=== PATIENT | male | born 1985 | race Native Hawaiian/Other Pacific Islander ===

== ENCOUNTER 2020-12-12 12:35 | Emergency (ER) | payer SELFPAY ==
[2020-12-12] MEDS ORDERED: BUTALB/ACETAMINOPHEN/CAFFEINE TAB PO ONE (12:54)
[2020-12-12] MEDS ORDERED: diphenhydrAMINE 25 MG CAP PO ONE (12:54)
[2020-12-12] MEDS ORDERED: METOCLOPRAMIDE 10 MG TAB PO ONE (12:54)
--- NOTE | 2020-12-12 12:54 | Event Note ---
ED Screening Note ED Screening Note: Patient is a 35-year-old male who presents emergency room with complaints of a frontal and posterior headache that began 2 days ago He states that when the pain gets severe he feels like he wants to pass out He denies any dizziness, vision changes, nausea, vomiting, diarrhea, neck stiffness, fever, numbness, weakness, speech disturbance, gait disturbance Past medical history of HIV, states he is on his medications No medication allergies This initial assessment/diagnostic orders/clinical plan/treatment(s) is/are subject to change based on patients health status, clinical progression and re- assessment by fellow clinical providers in the ED. Further treatment and workup at subsequent clinical providers discretion. Patient/guardian urged not to elope from the ED as their condition may be serious if not clinically assessed and managed. Initial orders include: labs, meds
[2020-12-12 13:36] LABS: Basophils % (Auto) 0.2 % (0.0-1.8); Hematocrit 36.6 % (35.5-45.6); Hemoglobin 12.8 gm/dl (11.8-15.2); Lymphocytes % (Auto) 12.2 % (13.4-35.0); Mean Corpuscular HGB Conc 35 % (32-34); Mean Corpuscular Volume 97 fl (84-94); Monocytes # (Auto) 0.6 K/mm3 (0.0-0.8); Monocytes % (Auto) 6.7 % (0.0-7.3); Platelet Count 254 K/mm3 (140-440); Red Blood Count 3.78 M/mm3 (3.65-5.03); Red Cell Distribution Width 14.2 % (13.2-15.2)
[2020-12-12] MEDS ORDERED: ONDANSETRON 4 MG/2 ML INJ IV ONE (13:59)
[2020-12-12] MEDS ORDERED: MORPHINE 4 MG/1 ML INJ IV ONE (13:59)
[2020-12-12] MEDS ORDERED: KETOROLAC 30 MG/1 ML INJ IV ONE (13:59)
[2020-12-12 14:01] LABS: Alanine Aminotransferase 13 units/L (7-56); Albumin 4.3 g/dL (3.9-5); BUN/Creatinine Ratio 16; Blood Urea Nitrogen 13 mg/dL (9-20); Calcium 9.2 mg/dL (8.4-10.2); Hemolysis Index 3
--- NOTE | 2020-12-12 14:22 | Emergency Department Report ---
ED Headache HPI - General Chief Complaint: Headache Stated Complaint: MIGRAINE X 3 DAYS Time Seen by Provider: 12/12/20 12:53 Source: patient Exam Limitations: language barrier (Patient Setswana-speaking. 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 Severe 10/10 stabbing headache radiating to neck. Constant. +photophobia +phonophobia +chills Patient did not attempt home therapy. Headache has been constant. Patient had similar headache when he was diagnosed with "fungal infection on the brain" at [facility] in [facility]. He was hospitalized for 1 month December 2019. He has been compliant with ART Biktarvy. He moved from [place] 3 months ago. He receives medical care through the [facility] clinic. Prescribing provider listed on medication bottle Dr. Anthony Alfaro. Patient has been taking fluconazole daily. However when he transferred care from [place] he was prescribed Bactrim instead. He attributes his headache to the medication change. 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 Patient was also diagnosed with COVID-19 during previous hospitalization in 2019. According to outside hospital records, patient had at least 2 admissions and several ED visits for headache related to cryptococcal meningitis. Claims Manager recommended frequent LP to relieve high pressures if symptomatic. At initial diagnosis of HIV CD4 count 39. According to discharge summary fluconazole therapy 200 mg recommended for 1 year. Discharge medications include azithromycin and Bactrim fluconazole according to OSH discharge summary February 2020 Timing/Duration: other (3 days) Quality: severe Head Injury Location: frontal, temporal Recent Head Trauma: other (Similar headache with fungal meningitis) Associated Symptoms: other (Chills photophobia phonophobia) Allergies/Adverse Reactions: Allergies No Known Allergies Allergy (Unverified 12/07/19 09:53) Home Medications: Ambulatory Orders Amoxicillin [Amoxicillin TAB] 875 mg PO BID #20 tablet 12/07/19 Ibuprofen [Motrin] 800 mg PO Q8HR #30 tablet 12/07/19 Fluconazole [Diflucan TAB] 2 tab PO QDAY 30 Days #60 tablet 12/12/20 Fluconazole [Diflucan TAB] 4 tab PO QDAY #120 tablet 12/12/20 Fluconazole [Diflucan TAB] 200 mg PO QDAY 30 Days #30 tablet 12/12/20 ED Review of Systems ROS: Stated complaint: MIGRAINE X 3 DAYS Other details as noted in HPI Comment: All other systems reviewed and negative Constitutional: chills Neurological: headache ED Past Medical Hx - Past Medical History Previous Medical History?: Yes Additional medical history: HIV/AIDS, fungal meningitis - Surgical History Past Surgical History?: No - Social History Smoking Status: Never Smoker Substance Use Type: None - Medications Home Medications: Home Medications Medication Instructions Recorded Confirmed Last Taken Type Amoxicillin [Amoxicillin TAB] 875 mg PO BID #20 tablet 12/07/19 Unknown Rx Ibuprofen [Motrin] 800 mg PO Q8HR #30 tablet 12/07/19 Unknown Rx Fluconazole [Diflucan TAB] 2 tab PO QDAY 30 Days #60 tablet 12/12/20 Unknown Rx Fluconazole [Diflucan TAB] 4 tab PO QDAY #120 tablet 12/12/20 Unknown Rx Fluconazole [Diflucan TAB] 200 mg PO QDAY 30 Days #30 tablet 12/12/20 Unknown Rx ED Physical Exam - General Limitations: Language Barrier (Setswana-speaking, lang interpreter at bedside) General appearance: alert, other (In severe pain, holding head, under the blanket) - Head Head exam: Present: atraumatic, normocephalic - Eye Eye exam: Present: normal appearance - ENT ENT exam: Present: mucous membranes moist - Neck Neck exam: Present: normal inspection, full ROM - Respiratory Respiratory exam: Present: normal lung sounds bilaterally. Absent: respiratory distress, wheezes, rales, rhonchi - Cardiovascular Cardiovascular Exam: Present: regular rate, normal rhythm, normal heart sounds. Absent: systolic murmur, diastolic murmur, rubs, gallop - GI/Abdominal GI/Abdominal exam: Present: soft, normal bowel sounds. Absent: distended, tenderness, guarding, rebound - Rectal Rectal exam: Present: deferred - Extremities Exam Extremities exam: Present: normal inspection - Neurological Exam Neurological exam: Present: alert, oriented X3, normal gait - Psychiatric Psychiatric exam: Present: normal affect, normal mood - Skin Skin exam: Present: warm, dry, intact, normal color. Absent: rash ED Course Vital Signs 12/12/20 12/12/20 12:49 14:31 Temperature 99.3 F Pulse Rate 79 60 Respiratory 22 16 Rate Blood Pressure 122/82 Blood Pressure 130/79 [Right] O2 Sat by Pulse 100 98 Oximetry - Lumbar Puncture Consent Obtained: verbal consent Time Out Performed: Yes Indication for Procedure: headache Patient Position: left lateral decubitus Skin Prep: Povidone-Iodine 1% Local Anesthetic Used: Lidocaine 1% Amount of anesthesia used (mls): 20 Spinal Needle Gauge: 20G Spinal Needle Length: 3.5in Interspace Used: L3-L4 Opening Pressure (cmH20): 28 Fluid Initially Obtained: clear Complications: none Patient Tolerated Procedure: well ED Medical Decision Making - Lab Data Result diagrams: 12/12/20 13:15 12/12/20 13:15 Laboratory Results - last 24 hr 12/12/20 12/12/20 13:15 13:15 WBC 8.3 RBC 3.78 Hgb 12.8 Hct 36.6 MCV 97 H MCH 34 H MCHC 35 H RDW 14.2 Plt Count 254 Lymph % (Auto) 12.2 L [place] % (Auto) 6.7 Eos % (Auto) 0.0 Baso % (Auto) 0.2 Lymph # (Auto) 1.0 L [place] # (Auto) 0.6 Eos # (Auto) 0.0 Baso # (Auto) 0.0 Seg Neutrophils % 80.9 H Seg Neutrophils # 6.7 Sodium 129 L Potassium 3.8 Chloride 94.7 L Carbon Dioxide 24 Anion Gap 14 BUN 13 Creatinine 0.8 Estimated GFR > 60 BUN/Creatinine Ratio 16 Glucose 126 H Calcium 9.2 Total Bilirubin 0.80 AST 11 ALT 13 Alkaline Phosphatase 63 Total Protein 8.6 H Albumin 4.3 Albumin/Globulin Ratio 1.0 - Medical Decision Making Cryptococcal meningitis: Serum cryptococcal antigen positive. I spoke with infectious disease physician Dr. Pisano. Dr. Pisano recommended lumbar puncture with opening pressure as well as CSF cryptococcal antigen test. She recommended fluconazole 800 mg daily. She anticipates that patient will need amphotericin which should be monitored by an infectious disease specialist. Opening pressure 28 cm of water with lumbar puncture. I consulted with hospitalist Dr. Romero who evaluated patient. Dr. Romero and I both agree that since patient's symptoms were easily controlled prior to spinal tap, outpatient therapy would be most appropriate. I have prescribed 3 months of fluconazole. 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 I have prescribed fluconazole fluconazole 800 mg for the first month. 400 mg fluconazole for the second month. 200 mg of fluconazole daily for the third month. Critical care attestation.: If time is entered above; I have spent that time in minutes in the direct care of this critically ill patient, excluding procedure time. ED Disposition Clinical Impression: Cryptococcal meningitis, Severe headache, AIDS Disposition: DC- TO HOME OR SELFCARE Is pt being admited?: No Does the pt Need Aspirin: No Condition: Stable Instructions: Cryptococcosis Additional Instructions: Deber lilibeth 800 mg diarios de fluconazol nakul el primer mes. El bernice mes deber lilibeth 400 mg de fluconazol al da. La tercera noche deber lilibeth 200 mg de fluconazol al da. Prescriptions: Fluconazole [Diflucan TAB] 4 tab PO QDAY #120 tablet Fluconazole [Diflucan TAB] 2 tab PO QDAY 30 Days #60 tablet Fluconazole [Diflucan TAB] 200 mg PO QDAY 30 Days #30 tablet Referrals: PRIMARY CARE, [Primary Care Provider] - 3-5 Days Print Language: FAROESE
--- NOTE | 2020-12-12 14:28 | Cat Scan Report ---
NONENHANCED CT SCAN OF THE HEAD: INDICATION / CLINICAL INFORMATION: 35 years Male; severe headache hx of fungal meningitis. TECHNIQUE: Routine CT head without contrast. All CT scans at this location are performed using CT dos e reduction for ALARA by means of automated exposure control. COMPARISON: None. FINDINGS: BRAIN / INTRACRANIAL CONTENTS: Normal ventricular system; no extracerebral fluid collection; no focal parenchymal lesion in the brain; no mass effect over the ventricular system Brain parenchyma is normal; basal ganglia are normal CRANIOCERVICAL JUNCTION: No significant abnormality. ORBITS: No significant abnormality of visualized orbits. SINUSES / MASTOIDS: No significant abnormality of the visualized paranasal sinuses or mastoid air dion ls. ADDITIONAL FINDINGS: None. IMPRESSION: No focal parenchymal lesion: No hydrocephalus; no extracerebral fluid collection Signer Name: Ellie Bearden MD Signed: 12/12/2020 2:24 PM Workstation Name: [id number]
[2020-12-12] MEDS ORDERED: LIDOCAINE (1%) 10 MG/1 ML VIAL 20 ML MDV INFILTRATI ONE (14:38)
[2020-12-12 18:18] VITALS: BP 122/72
[2020-12-12 18:55] LABS: Appearance,CSF Clear
[2020-12-12 19:06] LABS: Red Blood Cell,CSF 4 /mm3 (0-0); White Blood Cell,CSF 23 /mm3 (1-10)
[2020-12-12 19:32] LABS: Total Cells Counted 100 /mm3
[2020-12-12 19:33] LABS: Basophils CSF 0 %
== END 2020-12-12 18:18 | disposition home or self-care (01) ==
LOC: EDBD → ED 12:35
DX: B45.1 Cerebral cryptococcosis (principal); B20 Human immunodeficiency virus [HIV] disease; R51.9 Headache, unspecified; Z79.899 Other long term (current) drug therapy
CPT/HCPCS: 36415; 70450; 80053; 85025; 86403; 89051; 96374; 96375; 99284; J1885; J2270; J2405

== ENCOUNTER 2020-12-28 08:29 | Inpatient (IN) | payer OTHER ==
[2020-12-28] MEDS ORDERED: LORazepam 2 MG/ML VIAL IV ONE (08:52)
[2020-12-28] MEDS ORDERED: levETIRAcetam 1000 MG/NS 0.75% 1,000 MG/100 ML BAG IV ONE (08:52)
--- NOTE | 2020-12-28 09:13 | Emergency Department Report ---
Blank Doc - Documentation Documentation: [facility] Consult Note # Demographics Consult Type: General Neurology Patient Location: Emergency Room First Name: Everette Last Name: Maximino Date of : 1985 Age: 35 Gender: Male Time of Initial Page (Eastern Time): 12/28/2020, 08:44 Time of Return Call (Eastern Time): 12/28/2020, 08:44 # HPI History: 35yo M has h/o HIV, possibly with MEDICAL EXAMINER infection related to this. he presents with left sided weakness and is actively seizure. has ordered ativan and keppra, not given yet however # Scores Time of exam and NIHSS (Eastern Time): 12/28/2020, 09:08 NIHSS Total: 0 # Exam Mental Status: awake Motor: left sided wekaness Additional Neurologic Exam: head moving in a no-no direction. no clear seizures currently # PMH-FH-SH Past Medical History: HIV # Data Head CT: preliminarily reviewed by me, please refer to radiology read for official reading, hypodensity in the right parietal lobe - looks consistent with edema. limited eval # Assessment Impression: focal seizure # Plan Thrombolytic/Intervention: NOT IV Thrombolytic or IA Intervention Thrombolytic/Intraarterial Exclusion: IV thrombolytic and IA intervention considered but not recommended as this patient's symptoms are not clinically consistent with an assumed diagnosis of stroke Imaging: (urgency: routine admission): MRI Brain with AND without contrast Diagnostic Test: EEG Medication: fosphenytoin 20 PE/kg IV load Other: seizure precautions, I have discussed my recommendations with the referring provider Additional Recommendations: depending on history and known diagnosis will need LP Disposition: admit # Logistics Telemedicine: Interactive 2 way audio and visual telecommunication technology was utilized during this visit
--- NOTE | 2020-12-28 09:30 | Cat Scan Report ---
CT BRAIN: 12/28/2020 INDICATION / CLINICAL INFORMATION: Seizure.. COMPARISON: 12/12/2020 FINDINGS: BRAIN/INTRACRANIAL STRUCTURES: Unenhanced CT images of the brain were obtained and compared to a prio r exam from 12/12/2020. There is hypoattenuation in a 4.9 cm portion of the right parietal lobe, primarily involving the subc ortical white matter. This is of vasogenic appearance, without definite cortical involvement. There i s no definite defined mass or hemorrhage. When compared to the recent prior exam, this pattern has developed in the interval. Even in retrospec t, I do not see any evidence of abnormality in this location on the exam from 2 weeks earlier. There may be some subtle hypoattenuation in the occipital lobes white matter bilaterally, although th is is a symmetric pattern and may be normal pattern. The right parietal vasogenic pattern would gener ally not be typical of ischemic injury, and would have differential considerations including post ict al change, reactive neoplastic change, possibly posterior reversible encephalopathy syndrome (PRES), or encephalitis. It should be noted that changes due to underlying neoplasm would be somewhat unlikel y to progress over a two-week interval. Further evaluation with unenhanced and enhanced MRI is suggested. Ventricles and sulci are otherwise normal in size and shape. There are no abnormal extra-axial fluid collections. EXTRACRANIAL STRUCTURES: Unremarkable. IMPRESSION: Prominent right parietal vasogenic edema pattern as described above, with no evidence of hemorrhage. See above discussion. Follow-up MRI evaluation should be considered. Notification: in the emergency department at [address] scans at this location are performed using dose reduction to ALARA by means of automated expos ure control. Signer Name: John Koehler MD Signed: 12/28/2020 9:25 AM Workstation Name: [id number]
--- NOTE | 2020-12-28 09:35 | XRay Report ---
CHEST 1 VIEW 091 INDICATION / CLINICAL INFORMATION: hypertension COMPARISON: None available. FINDINGS: SUPPORT DEVICES: None HEART / MEDIASTINUM: No significant abnormality. LUNGS / PLEURA: No significant pulmonary or pleural abnormality. No pneumothorax. ADDITIONAL FINDINGS: No significant additional findings. IMPRESSION: No significant acute abnormality Signer Name: Salas Raymond MD Signed: 12/28/2020 9:31 AM Workstation Name: [email or web address]
--- NOTE | 2020-12-28 09:45 | Cat Scan Report ---
CT BRAIN: 12/28/2020 INDICATION / CLINICAL INFORMATION: Abnormal CT.. Seizure.HIV focal seizure, [id number] 100ml COMPARISON: Noncontrast CT 12/28/2020 FINDINGS: BRAIN/INTRACRANIAL STRUCTURES: Contrast enhanced CT images of the brain were obtained. There is signi ficant patient motion artifact present. The technologist as indicated that comes were made to unsuppr essed patient motion with limited success. There is no evidence of abnormal contrast enhancement. No abnormal enhancement seen in the vicinity o f the area of hypodensity present in the right parietal lobe, described in detail on the separate hea d CT report. IMPRESSION: No evidence of abnormal contrast enhancement. Exam quality somewhat limited by patient motion artifa ct. All CT scans at this location are performed using dose reduction to ALARA by means of automated expos ure control. Signer Name: John Koehler MD Signed: 12/28/2020 9:41 AM Workstation Name: [id number]
[2020-12-28 09:52] LABS: Basophils % (Auto) 0.3 % (0.0-1.8); Eosinophils % (Auto) 0.2 % (0.0-4.3); Lymphocytes % (Auto) 10.5 % (13.4-35.0); Mean Corpuscular HGB Conc 34 % (32-34); Mean Corpuscular Volume 96 fl (84-94); Monocytes # (Auto) 0.4 K/mm3 (0.0-0.8); Monocytes % (Auto) 4.7 % (0.0-7.3); Platelet Count 322 K/mm3 (140-440); Red Blood Count 3.96 M/mm3 (3.65-5.03); Red Cell Distribution Width 14.3 % (13.2-15.2)
[2020-12-28 09:59] LABS: Alanine Aminotransferase 10 units/L (7-56); Albumin 3.9 g/dL (3.9-5)
[2020-12-28 10:01] LABS: Bilirubin,Direct < 0.2 mg/dL (0-0.2)
[2020-12-28 10:07] LABS: INR 1.17 (0.87-1.13)
[2020-12-28 11:03] LABS: Creatine Kinase MB < 1.0 ng/mL (0.0-4.0)
[2020-12-28 11:12] LABS: BUN/Creatinine Ratio 13; Blood Urea Nitrogen 12 mg/dL (9-20); Calcium 9.7 mg/dL (8.4-10.2); Hemolysis Index 52
--- NOTE | 2020-12-28 11:40 | Emergency Department Report ---
ED Neuro Deficit HPI - General Chief Complaint: Neck Pain/Injury Stated Complaint: GENERAL WEAKNESS Source: patient, EMS, aircraft ordnance technician Mode of arrival: Stretcher Limitations: Language Barrier - History of Present Illness Initial Comments: This is a 35-year-old male with a history of HIV who states he is compliant with medication. He states that he has not been admitted to the hospital prior for HIV. He was transported via EMS with jerking movements of his head. According to the health information administrator, they did not think he was having seizures. On my exam it appeared that the patient was likely having some sort of focal seizures. In addition he was found to have a gaze preference to the right and a mild left hemiparesis. Apparently the patient has been seen here for headaches on 12/12/2020. A CT obtained at that time was interpreted by the radiologist as normal. He was treated as an outpatient. Patient did state he was having persistent headaches although at the time of his presentation the pain was mild in intensity. The patient told me that the symptoms of shaking movements began at approximately 9 AM. He had no prior history of seizures. In consideration of his neuro deficits to expedite his care a code stroke was called. In the presence of focal seizures and HIV he was not considered to be a candidate for TPA though. Teleneurology did call only for a report prior to availability of CT. They agree that TPA would not be appropriate in this patient. -: hour(s) Last Observed Normal: 09:00 Place: home Severity: moderate Quality: other (Focal seizures) Improves With: none On Anticoagulants: No Context: sudden onset Associated Symptoms: denies other symptoms, headaches - Related Data Home Medications: Previous Rx's Medication Instructions Recorded Last Taken Type Fluconazole [Diflucan TAB] 200 mg PO QDAY 30 Days #30 tablet 12/12/20 Unknown Rx Allergies/Adverse Reactions: Allergies Allergy/AdvReac Type Severity Reaction Status Date / Time No Known Allergies Allergy Unverified 12/07/19 09:53 ED Review of Systems ROS: Stated complaint: GENERAL WEAKNESS Other details as noted in HPI Comment: Unobtainable due to pts medical conditions (Limited secondary to active seizures but as above no recent fever or chills, respiratory symptoms vomiting or diarrhea. 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 - Surgical History Past Surgical History?: No - Social History Smoking Status: Never Smoker Substance Use Type: Alcohol - Medications Home Medications: Home Medications Medication Instructions Recorded Confirmed Last Taken Type Fluconazole [Diflucan TAB] 200 mg PO QDAY 30 Days #30 tablet 12/12/20 12/28/20 Unknown Rx ED Neuro Physical Exam - General Limitations: Physical Limitation, Other (Focal seizures) General appearance: alert, other (Jerking movements of the head to the left) Suspected Stroke: No (Unlikely) - Head Head exam: Present: atraumatic, normocephalic - Eye Eye exam: Present: normal appearance, PERRL, EOMI, other (Mild right gaze preference but no extra ocular palsy). Absent: scleral icterus - ENT ENT exam: Present: mucous membranes moist - Neck Neck exam: Present: normal inspection. Absent: tenderness, meningismus - Respiratory Respiratory exam: Present: normal lung sounds bilaterally. Absent: respiratory distress - Cardiovascular Cardiovascular Exam: Present: regular rate, normal rhythm. Absent: systolic murmur, diastolic murmur, rubs, gallop - GI/Abdominal GI/Abdominal exam: Present: soft, normal bowel sounds. Absent: distended, tenderness, guarding, rebound - Rectal Rectal exam: Present: deferred - Extremities Exam Extremities exam: Present: normal inspection - Back Exam Back exam: Present: normal inspection - Neurological Exam Neurological exam: Present: alert, oriented X3, motor sensory deficit. Absent: CN II-XII intact - NIHSS Assessment Interval: Baseline 1a. Level of Consciousness: alert/keenly responsive 1b. LOC Questions: answers both correctly 1c. LOC Commands: performs tasks correctly 2. Best Gaze: partial gaze palsy 3. Visual: no visual loss 4. Facial Palsy: normal symmetrical movement 5b. Motor Arm Right: no drift 5a. Motor Arm Left: drift 6a. Motor Leg Left: drift 6b. Motor Leg Right: no drift 7. Limb Ataxia: absent 8. Sensory: normal 9. Best Language: no aphasia 10. Dysarthria: normal 11. Extinction/Inattention: no abnormality Total Score: 3 Stroke Severity: Minor Stroke - Psychiatric Psychiatric exam: Present: normal affect, normal mood - Skin Skin exam: Present: warm, dry, intact, normal color. Absent: rash ED Course Vital Signs 12/28/20 12/28/20 12/28/20 08:30 09:38 09:46 Temperature 98.2 F Pulse Rate 71 56 L 58 L Respiratory 17 16 19 Rate Blood Pressure 129/89 139/93 O2 Sat by Pulse 99 100 100 Oximetry 12/28/20 12/28/20 12/28/20 10:00 10:16 10:30 Temperature Pulse Rate 60 62 89 Respiratory 15 18 21 Rate Blood Pressure 139/93 137/90 137/90 O2 Sat by Pulse 99 100 100 Oximetry 12/28/20 12/28/20 12/28/20 10:46 11:00 11:16 Temperature Pulse Rate 62 68 84 Respiratory 18 17 17 Rate Blood Pressure 137/90 137/90 127/88 O2 Sat by Pulse 100 100 100 Oximetry 12/28/20 11:30 Temperature Pulse Rate 73 Respiratory 18 Rate Blood Pressure 127/88 O2 Sat by Pulse 100 Oximetry - Reevaluation(s) Reevaluation #1: Ativan and Keppra ordered. The patient was sent to CT. The radiologist and the teleneurologist agreed that the patient had a area of right parietal vasogenic edema. Contrast study did not reveal other findings. The patient's focal seizures did resolve with the above. 12/28/20 12:00 12/28/20 12:01 The patient was found to be mildly hyponatremic. Platelet count was normal. Coagulation profile was not prohibitive. An MRI was ordered. I discussed with the patient performing a lumbar puncture to rule out cryptococcal meningitis. He is in agreement. Lumbar puncture will be performed. - Lumbar Puncture Consent Obtained: verbal consent Time Out Performed: No Indication for Procedure: headache, other (Rule out cryptococcus) Patient Position: Sitting Upright/Leaning F Skin Prep: Povidone-Iodine 1% Local Anesthetic Used: Lidocaine 1% Spinal Needle Gauge: 20G Spinal Needle Length: 2in Interspace Used: L4-L5 Opening Pressure (cmH20): 0 (Possibly slightly elevated) Fluid Initially Obtained: clear Complications: none Patient Tolerated Procedure: well Additional Comments: 4 tubes of clear spinal fluid sent to the lab. Procedure well-tolerated. - Lab Data Result diagrams: 12/28/20 09:33 12/28/20 09:33 Lab Results 12/28/20 12/28/20 12/28/20 Range/Units 09:33 09:33 09:33 WBC 9.6 (4.5-11.0) K/mm3 RBC 3.96 (3.65-5.03) M/mm3 Hgb 13.0 (11.8-15.2) gm/dl Hct 38.0 (35.5-45.6) % MCV 96 H (84-94) fl MCH 33 H (28-32) pg MCHC 34 (32-34) % RDW 14.3 (13.2-15.2) % Plt Count 322 (140-440) K/mm3 Lymph % (Auto) 10.5 L (13.4-35.0) % [place]ickman % (Auto) 4.7 (0.0-7.3) % Eos % (Auto) 0.2 (0.0-4.3) % Baso % (Auto) 0.3 (0.0-1.8) % Lymph # (Auto) 1.0 L (1.2-5.4) K/mm3 Hickman # (Auto) 0.4 (0.0-0.8) K/mm3 Eos # (Auto) 0.0 (0.0-0.4) K/mm3 Baso # (Auto) 0.0 (0.0-0.1) K/mm3 Seg Neutrophils % 84.3 H (40.0-70.0) % Seg Neutrophils # 8.1 H (1.8-7.7) K/mm3 PT 14.9 (12.2-14.9) Sec. INR 1.17 H (0.87-1.13) APTT 40.0 H (24.2-36.6) Sec. Thrombin Time (15.1-19.6) Sec. Sodium 131 L (137-145) mmol/L Potassium 4.5 (3.6-5.0) mmol/L Chloride 97.8 L (98-107) mmol/L Carbon Dioxide 21 L (22-30) mmol/L Anion Gap 17 mmol/L BUN 12 (9-20) mg/dL Creatinine 0.9 (0.8-1.3) mg/dL Estimated GFR > 60 ml/min BUN/Creatinine Ratio 13 % Glucose 101 H (75-100) mg/dL Calcium 9.7 (8.4-10.2) mg/dL Magnesium (1.7-2.3) mg/dL Total Bilirubin (0.1-1.2) mg/dL Direct Bilirubin (0-0.2) mg/dL Indirect Bilirubin mg/dL AST (5-40) units/L ALT (7-56) units/L Alkaline Phosphatase (35-129) units/L Ammonia (25-60) umol/L Total Creatine Kinase 126 (55-170) units/L CK-MB (CK-2) < 1.0 (0.0-4.0) ng/mL CK-MB (CK-2) Rel Index 0.7 (0-4) Troponin T < 0.010 (0.00-0.029) ng/mL Total Protein (6.3-8.2) g/dL Albumin (3.9-5) g/dL Albumin/Globulin Ratio % 12/28/20 12/28/20 12/28/20 Range/Units 09:33 09:33 09:33 WBC (4.5-11.0) K/mm3 RBC (3.65-5.03) M/mm3 Hgb (11.8-15.2) gm/dl Hct (35.5-45.6) % MCV (84-94) fl MCH (28-32) pg MCHC (32-34) % RDW (13.2-15.2) % Plt Count (140-440) K/mm3 Lymph % (Auto) (13.4-35.0) % Hickman % (Auto) (0.0-7.3) % Eos % (Auto) (0.0-4.3) % Baso % (Auto) (0.0-1.8) % Lymph # (Auto) (1.2-5.4) K/mm3 Hickman # (Auto) (0.0-0.8) K/mm3 Eos # (Auto) (0.0-0.4) K/mm3 Baso # (Auto) (0.0-0.1) K/mm3 Seg Neutrophils % (40.0-70.0) % Seg Neutrophils # (1.8-7.7) K/mm3 PT (12.2-14.9) Sec. INR (0.87-1.13) APTT (24.2-36.6) Sec. Thrombin Time 15.2 (15.1-19.6) Sec. Sodium (137-145) mmol/L Potassium (3.6-5.0) mmol/L Chloride (98-107) mmol/L Carbon Dioxide (22-30) mmol/L Anion Gap mmol/L BUN (9-20) mg/dL Creatinine (0.8-1.3) mg/dL Estimated GFR ml/min BUN/Creatinine Ratio % Glucose (75-100) mg/dL Calcium (8.4-10.2) mg/dL Magnesium 2.00 (1.7-2.3) mg/dL Total Bilirubin 0.60 (0.1-1.2) mg/dL Direct Bilirubin < 0.2 (0-0.2) mg/dL Indirect Bilirubin 0.4 mg/dL AST 11 (5-40) units/L ALT 10 (7-56) units/L Alkaline Phosphatase 69 (35-129) units/L Ammonia 15.0 L (25-60) umol/L Total Creatine Kinase (55-170) units/L CK-MB (CK-2) (0.0-4.0) ng/mL CK-MB (CK-2) Rel Index (0-4) Troponin T (0.00-0.029) ng/mL Total Protein 8.3 H (6.3-8.2) g/dL Albumin 3.9 (3.9-5) g/dL Albumin/Globulin Ratio 0.9 % Critical care attestation.: If time is entered above; I have spent that time in minutes in the direct care of this critically ill patient, excluding procedure time. ED Disposition Clinical Impression: Focal seizures, Right parietal lobe lesion, HIV positive Disposition: OP ADMIT IP TO THIS HOSP Is pt being admited?: Yes Does the pt Need Aspirin: Yes Condition: Stable Referrals: PRIMARY CARE, [Primary Care Provider] - 3-5 Days Time of Disposition: 12:39
[2020-12-28] MEDS ORDERED: ASPIRIN 81 MG TAB CHEW PO ONE (12:40)
[2020-12-28 13:26] LABS: Glucose,CSF 41 mg/dL
[2020-12-28 13:46] LABS: Appearance,CSF Clear; Red Blood Cell,CSF 3.3 /mm3 (0-0); White Blood Cell,CSF 33.85 /mm3 (1-10)
[2020-12-28 14:31] LABS: Total Cells Counted 100 /mm3
[2020-12-28 16:41] LABS: Basophils CSF 0 %
--- NOTE | 2020-12-28 22:41 | History and Physical Report ---
History of Present Illness Date of examination: 12/28/20 Date of admission: 12/28/20 12:41 Chief complaint: Seizures -Focal lt andrew face 1 day Headache for 3 weeeks History of present illness: 35-year-old man past medical history HIV presented to the hospital with possible seizure. He was noted to have jerking movements of his head. He has been seen in the hospital in the past for headaches a couple weeks prior. He had been having persistent headache since that time. Lumbar puncture was performed which showed 33 white cells with 78% lymphocytes. 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 This was diagnosed in [place] and was hospitalized for a month in December 2019. He is on Biktarvy. He had previously been on daily fluconazole as maintenance therapy for the cryptococcus, however when he transferred care from [place] he stopped his fluconazole at that time. Also complaints of LLE weakness.Walking with a limp. Afebrile since admission with a normal white count. 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 - Surgical History Past Surgical History?: No - Social History Smoking Status: Never Smoker Substance Use Type: Alcohol Family History N/a - Medications Home Medications: Home Medications Medication Instructions Recorded Confirmed Last Taken Type Fluconazole [Diflucan TAB] 200 mg PO QDAY 30 Days #30 tablet 12/12/20 12/28/20 Unknown Rx Review of Systems ROS: Stated complaint: GENERAL WEAKNESS Other details as noted in HPI Comment: Unobtainable due to pts medical conditions (Limited secondary to active seizures but as above no recent fever or chills, respiratory symptoms vomiting or diarrhea. Abbreviated review was negative.) Medications and Allergies Allergies Allergy/AdvReac Type Severity Reaction Status Date / Time No Known Allergies Allergy Verified 12/28/20 17:20 Home Medications Medication Instructions Recorded Confirmed Last Taken Type Fluconazole [Diflucan TAB] 200 mg PO QDAY 30 Days #30 tablet 12/12/20 12/28/20 Unknown Rx Bictegrav/Emtricit/Tenofov Ala 1 each PO QDAY 12/28/20 12/28/20 Unknown History [Biktarvy 50-200-25 mg (Nf)] Active Meds: Active Medications Fluconazole (Fluconazole 200 Mg Tab) 200 mg PO QDAY BAM; Protocol Miscellaneous Medication (Bictegrav/Emtricit/Tenofov Ala) 1 each PO QDAY BAM Exam - Constitutional Vitals: Temp Pulse Resp BP Pulse Ox 98.3 F 79 17 120/80 99 12/28/20 16:30 12/28/20 16:30 12/28/20 16:30 12/28/20 16:30 12/28/20 16:30 General appearance: Present: no acute distress, well-nourished - EENT Eyes: Present: PERRL ENT: hearing intact, clear oral mucosa - Neck Neck: Present: supple, normal ROM - Respiratory Respiratory effort: normal Respiratory: bilateral: CTA - Cardiovascular Heart rate: 78 Rhythm: regular Heart Sounds: Present: S1 & S2. Absent: rub, click - Extremities Extremities: pulses symmetrical, No edema Peripheral Pulses: within normal limits - Abdominal General gastrointestinal: Present: soft, non-tender, non-distended, normal bowel sounds Male genitourinary: Present: normal - Integumentary Integumentary: Present: clear, warm, dry - Musculoskeletal Musculoskeletal: strength equal bilaterally, left sided weakness - Psychiatric Psychiatric: appropriate mood/affect, intact judgment & insight - Neurologic Neurologic: CNII-XII intact, focal deficits (LLE weakness 3/5 power all muscle groups ), moves all extremities - Allied Health Allied health notes reviewed: nursing, case management HEART Score - HEART Score Troponin: Troponin T < 0.010 ng/mL (0.00-0.029) 12/28/20 09:33 Results - Labs CBC & Chem 7: 12/28/20 09:33 12/28/20 09:33 Labs: Laboratory Last Values WBC 9.6 K/mm3 (4.5-11.0) 12/28/20 09:33 RBC 3.96 M/mm3 (3.65-5.03) 12/28/20 09:33 Hgb 13.0 gm/dl (11.8-15.2) 12/28/20 09:33 Hct 38.0 % (35.5-45.6) 12/28/20 09:33 MCV 96 fl (84-94) H 12/28/20 09:33 MCH 33 pg (28-32) H 12/28/20 09:33 MCHC 34 % (32-34) 12/28/20 09:33 RDW 14.3 % (13.2-15.2) 12/28/20 09:33 Plt Count 322 K/mm3 (140-440) 12/28/20 09:33 Lymph % (Auto) 10.5 % (13.4-35.0) L 12/28/20 09:33 [place] % (Auto) 4.7 % (0.0-7.3) 12/28/20 09:33 Eos % (Auto) 0.2 % (0.0-4.3) 12/28/20 09:33 Baso % (Auto) 0.3 % (0.0-1.8) 12/28/20 09:33 Lymph # (Auto) 1.0 K/mm3 (1.2-5.4) L 12/28/20 09:33 [place] # (Auto) 0.4 K/mm3 (0.0-0.8) 12/28/20 09:33 Eos # (Auto) 0.0 K/mm3 (0.0-0.4) 12/28/20 09:33 Baso # (Auto) 0.0 K/mm3 (0.0-0.1) 12/28/20 09:33 Seg Neutrophils % 84.3 % (40.0-70.0) H 12/28/20 09:33 Seg Neutrophils # 8.1 K/mm3 (1.8-7.7) H 12/28/20 09:33 PT 14.9 Sec. (12.2-14.9) 12/28/20 09:33 INR 1.17 (0.87-1.13) H 12/28/20 09:33 APTT 40.0 Sec. (24.2-36.6) H 12/28/20 09:33 Thrombin Time 15.2 Sec. (15.1-19.6) 12/28/20 09:33 Sodium 131 mmol/L (137-145) L 12/28/20 09:33 Potassium 4.5 mmol/L (3.6-5.0) 12/28/20 09:33 Chloride 97.8 mmol/L (98-107) L 12/28/20 09:33 Carbon Dioxide 21 mmol/L (22-30) L 12/28/20 09:33 Anion Gap 17 mmol/L 12/28/20 09:33 BUN 12 mg/dL (9-20) 12/28/20 09:33 Creatinine 0.9 mg/dL (0.8-1.3) 12/28/20 09:33 Estimated GFR > 60 ml/min 12/28/20 09:33 BUN/Creatinine Ratio 13 % 12/28/20 09:33 Glucose 101 mg/dL (75-100) H 12/28/20 09:33 POC Glucose 96 mg/dL (70-105) 12/28/20 22:05 Calcium 9.7 mg/dL (8.4-10.2) 12/28/20 09:33 Magnesium 2.00 mg/dL (1.7-2.3) 12/28/20 09:33 Total Bilirubin 0.60 mg/dL (0.1-1.2) 12/28/20 09:33 Direct Bilirubin < 0.2 mg/dL (0-0.2) 12/28/20 09:33 Indirect Bilirubin 0.4 mg/dL 12/28/20 09:33 AST 11 units/L (5-40) 12/28/20 09:33 ALT 10 units/L (7-56) 12/28/20 09:33 Alkaline Phosphatase 69 units/L (35-129) 12/28/20 09:33 Ammonia 15.0 umol/L (25-60) L 12/28/20 09:33 Total Creatine Kinase 126 units/L (55-170) 12/28/20 09:33 CK-MB (CK-2) < 1.0 ng/mL (0.0-4.0) 12/28/20 09:33 CK-MB (CK-2) Rel Index 0.7 (0-4) 12/28/20 09:33 Troponin T < 0.010 ng/mL (0.00-0.029) 12/28/20 09:33 Total Protein 8.3 g/dL (6.3-8.2) H 12/28/20 09:33 Albumin 3.9 g/dL (3.9-5) 12/28/20 09:33 Albumin/Globulin Ratio 0.9 % 12/28/20 09:33 CSF Appearance Clear 12/28/20 12:48 CSF Color Colorless 12/28/20 12:48 CSF WBC 33.85 /mm3 (1-10) 12/28/20 12:48 CSF RBC 3.3 /mm3 (0-0) 12/28/20 12:48 CSF Seg Neutrophils 3.0 % (0-6) 12/28/20 12:48 CSF Lymphocytes % 78.0 % (40-80) 12/28/20 12:48 CSF Reactive Lymphs 0 % 12/28/20 12:48 CSF Monocytes % 18.0 % (15-45) 12/28/20 12:48 CSF Eosinophils % 1.0 % 12/28/20 12:48 CSF Basophils 0 % 12/28/20 12:48 CSF Pathologist Review C 12/28/20 12:48 CSF Glucose 41 mg/dL 12/28/20 12:48 CSF Total Protein 121 mg/dL 12/28/20 12:48 Microbiology: Microbiology 12/28/20 12:48 Cerebral Spinal Fluid CSF Culture - Preliminary 12/28/20 12:48 Cerebral Spinal Fluid Cryptococcal Antigen - Final 1:16 - Imaging and Cardiology Imaging and Cardiology: Head CT BRAIN/INTRACRANIAL STRUCTURES: Contrast enhanced CT images of the brain were obtained. There is significant patient motion artifact present. The technologist as indicated that comes were made to unsuppressed patient motion with limited success. There is no evidence of abnormal contrast enhancement. No abnormal enhancement seen in the vicinity of the area of hypodensity present in the right parietal lobe, described in detail on the separate head CT report. Assessment and Plan Advance Directives: Yes - Patient Problems (1) Cryptococcal meningitis Current Visit: Yes Status: Acute Plan to address problem: Started on Diflucan and Amphotericin Defer to ID to make changed (2) Focal seizures Current Visit: Yes Status: Acute Plan to address problem: Started on Keppra Rt parietal lesion (3) HIV positive Current Visit: Yes Status: Acute (4) Right parietal lobe lesion Current Visit: Yes Status: Acute Plan to address problem: Acute (5) HIV 2 (human immunodeficiency virus type 2) Current Visit: Yes Status: Acute Plan to address problem: On retrovirals (6) DVT prophylaxis Current Visit: Yes Status: Acute Plan to address problem: On Heparin
[2020-12-28] MEDS: WATER IV SCH (23:53)
[2020-12-28] MEDS: DEXTROSE 5% IV SCH (23:53)
[2020-12-28] MEDS: FLUCONAZOLE 400 MG 200 ML IV SCH (23:53)
[2020-12-28] MEDS: AMPHOTERICIN B LIPID COMPLEX IV SCH (23:53)
[2020-12-28] MEDS: levETIRAcetam 750 MG in DEXTROSE 5% IN WATER 100 ML IV SCH (23:53)
[2020-12-29] MEDS: ACETAMINOPHEN 325 MG TAB PO PRN (02:12)
[2020-12-29] MEDS ORDERED: MORPHINE 2 MG/1 ML INJ IV ONE (05:05)
[2020-12-29] MEDS ORDERED: FLUCONAZOLE 200 MG TAB PO SCH (10:00)
[2020-12-29] MEDS ORDERED: NON-FORMULARY EACH (Bictegrav/Emtricit/Tenofov Ala 1 EACH Tablet) PO SCH (10:00)
[2020-12-29] MEDS: levETIRAcetam 750 MG in DEXTROSE 5% IN WATER 100 ML IV SCH ×2 (11:30→21:38)
[2020-12-29] MEDS: TENOFOVIR 300 MG TAB PO SCH (14:00)
[2020-12-29] MEDS: DOLUTEGRAVIR 50 MG TAB PO SCH (14:02)
[2020-12-29] MEDS: EMTRICITABINE 200 MG CAP PO SCH (14:02)
--- NOTE | 2020-12-29 14:20 | Consultation ---
History of Present Illness Consult date: 12/29/20 History of present illness: Patient is not in room during rounds. Will followup in AM. Medications and Allergies Allergies Allergy/AdvReac Type Severity Reaction Status Date / Time No Known Allergies Allergy Verified 12/28/20 17:20 Home Medications Medication Instructions Recorded Confirmed Last Taken Type Fluconazole [Diflucan TAB] 200 mg PO QDAY 30 Days #30 tablet 12/12/20 12/28/20 Unknown Rx Bictegrav/Emtricit/Tenofov Ala 1 each PO QDAY 12/28/20 12/28/20 Unknown History [Biktarvy 50-200-25 mg (Nf)] Active Meds: Active Medications Acetaminophen (Acetaminophen 325 Mg Tab) 650 mg PO Q4H PRN PRN Reason: Pain,Mild (1-3),SHEARER,Fever>100.5 Last Admin: 12/29/20 02:12 Dose: 650 mg Documented by: Emtricitabine (Emtricitabine 200 Mg Cap) 200 mg PO QDAY BAM Fluconazole (Diflucan) 200 mls @ 100 mls/hr IV Q24H BAM; Protocol Last Admin: 12/28/20 23:53 Dose: 100 mls/hr Documented by: Amphotericin B 325 mg/ (Dextrose) 565 mls @ 250 mls/hr IV Q24H BAM; Protocol Last Admin: 12/28/20 23:53 Dose: 250 mls/hr Documented by: Levetiracetam 750 mg/ Dextrose 107.5 mls @ 400 mls/hr IV Q12HR BAM Last Admin: 12/28/20 23:53 Dose: 400 mls/hr Documented by: Tenofovir Disoproxil Fumarate (Tenofovir 300 Mg Tab) 300 mg PO QDAY BAM Physical Examination - Vital Signs Vital Signs: Vital Signs Temp Pulse Resp BP Pulse Ox 98.2 F 71 17 129/89 99 12/28/20 08:30 12/28/20 08:30 12/28/20 08:30 12/28/20 08:30 12/28/20 08:30 Results - Laboratory Findings CBC and BMP: 12/28/20 09:33 12/28/20 09:33 Abnormal Lab Findings: Abnormal Labs 12/28/20 12/28/20 12/28/20 09:33 09:33 09:33 MCV 96 H MCH 33 H Lymph % (Auto) 10.5 L Lymph # (Auto) 1.0 L Seg Neutrophils % 84.3 H Seg Neutrophils # 8.1 H INR 1.17 H APTT 40.0 H Sodium 131 L Chloride 97.8 L Carbon Dioxide 21 L Glucose 101 H POC Glucose Ammonia Total Protein 12/28/20 12/28/20 12/29/20 09:33 09:33 07:27 MCV MCH Lymph % (Auto) Lymph # (Auto) Seg Neutrophils % Seg Neutrophils # INR APTT Sodium Chloride Carbon Dioxide Glucose POC Glucose 121 H Ammonia 15.0 L Total Protein 8.3 H
--- NOTE | 2020-12-29 15:30 | Consultation ---
History of Present Illness - Reason for Consult Consult date: 12/29/20 - History of Present Illness [id number] man past medical history HIV presented to the hospital with possible seizure. He was noted to have jerking movements of his head. He has been seen in the hospital in the past for headaches a couple weeks prior. He had been having persistent headache since that time. Lumbar puncture was performed which showed 33 white cells with 78% lymphocytes. 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 This was diagnosed in [place] and was hospitalized for a month in December 2019. He is on Biktarvy. He had previously been on daily fluconazole as maintenance therapy for the cryptococcus, however when he transferred care from [place] he stopped his fluconazole at that time. Afebrile since admission with a normal white count. 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 Imaging personally reviewed: Chest x-ray no abnormality Review of Systems: Bold if positive, otherwise negative General: fevers, chills, rigors HEENT: visual disturbance, diplopia, eye pain Respiratory: cough, sputum, hemoptysis, shortness of breath Cardiovascular: chest pain, syncope Gastrointestinal: nausea, vomiting, diarrhea, abdominal pain Genitourinary: dysuria, hematuria, flank pain Musculoskeletal: neck pain, back pain, joint pain, edema Neurologic: headaches, seizures Hematologic: easy bruising or bleeding Endocrine: night sweats, acute weight loss Skin: rash, jaundice, redness Psychiatric: suicidal, homicidal ideation Past History Past Medical History: other (HIV, Cryptococcus meningitis) Medications and Allergies Allergies Allergy/AdvReac Type Severity Reaction Status Date / Time No Known Allergies Allergy Verified 12/28/20 17:20 Home Medications Medication Instructions Recorded Confirmed Last Taken Type Fluconazole [Diflucan TAB] 200 mg PO QDAY 30 Days #30 tablet 12/12/20 12/28/20 Unknown Rx Bictegrav/Emtricit/Tenofov Ala 1 each PO QDAY 12/28/20 12/28/20 Unknown History [Biktarvy 50-200-25 mg (Nf)] Active Meds: Active Medications Acetaminophen (Acetaminophen 325 Mg Tab) 650 mg PO Q4H PRN PRN Reason: Pain,Mild (1-3),SHEARER,Fever>100.5 Last Admin: 12/29/20 02:12 Dose: 650 mg Documented by: Emtricitabine (Emtricitabine 200 Mg Cap) 200 mg PO QDAY BAM Fluconazole (Diflucan) 200 mls @ 100 mls/hr IV Q24H [facility]; Protocol Last Admin: 12/28/20 23:53 Dose: 100 mls/hr Documented by: Amphotericin B 325 mg/ (Dextrose) 565 mls @ 250 mls/hr IV Q24H BAM; Protocol Last Admin: 12/28/20 23:53 Dose: 250 mls/hr Documented by: Levetiracetam 750 mg/ Dextrose 107.5 mls @ 400 mls/hr IV Q12HR BAM Last Admin: 12/28/20 23:53 Dose: 400 mls/hr Documented by: Tenofovir Disoproxil Fumarate (Tenofovir 300 Mg Tab) 300 mg PO QDAY BAM Physical Examination - Physical Exam Narrative exam: Physical Exam: Constitutional: Alert, cooperative. No acute distress Head, Ears, Nose: Normocephalic, atraumatic. External ears, nose normal Eyes: Conjunctivae/corneas clear. No icterus. No ptosis. Neck: Supple, no meningeal signs Oral: dentition fair, no thrush Cardiovascular: S1, S2 normal. Respiratory: Good air entry, clear to auscultation bilaterally GI: Soft, non-tender; bowel sounds normal. No peritoneal signs. Musculoskeletal: No pedal edema, no cyanosis. Skin: No rash or abscess Hem/Lymphatic: No palpable cervical or supraclavicular nodes. No lymphangitis Psych: Mood ok. Affect normal Neurological: Awake, alert, oriented. No gross abnormality - Constitutional Vitals: Vital Signs Temp Pulse Resp BP Pulse Ox 98.5 F 88 20 115/70 99 12/29/20 11:42 12/29/20 11:42 12/29/20 11:42 12/29/20 11:42 12/29/20 11:49 Temperature -Last 24 Hours Temperature 98.5 F Temperature 98.9 F Temperature 97.6 F Temperature 98.3 F Results - Labs CBC & Chem 7: 12/28/20 09:33 12/28/20 09:33 Labs: Abnormal lab results 12/29/20 Range/Units 07:27 POC Glucose 121 H (70-105) mg/dL Assessment and Plan Cultures: CSF Crpyto A:16. 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 His maintenance therapy was stopped 3 months ago, or after approximately 9 months total. It is unclear why at this point. Unclear if he had a negative Crpyto serum antigen. His current titre is 1:16, it is unclear as to what he was at the beginning. During his LP here his opening pressure was reportedly 0. #HIV: reports compliance with the Biktarvy. Unclear CD4 and viral load. I was unable to reach anyone at [facility] to discuss his previous lab results. #Headaches Recs: -Ordered CD4 count and viral load -Follow-up CSF fungal culture -Follow-up brain MRI -Ordered Cryptotcoccus serum Ag -I will await confirmation with the above tests prior to restarting induction therapy given his normal opening pressure. It is not uncommon to still have a positive antigen after therapy, and I cannot compare it to a baseline. He reports being compliant on Biktarvy as well, so his CD4 may be good -Will also hold on restarting the Biktarvy until we confirm the diagnosis in case he was not truthful about compliance and does have acute Crypto meningitis. Thank you for the consult, we will continue to follow. MD Marissa Hunter [facility] O: [phone] F: [phone]
--- NOTE | 2020-12-29 15:53 | Magnetic Resonance Report ---
MR brain wo con INDICATION / CLINICAL INFORMATION: 35 years Male; focal sz, HIV, r parietal vasogenic edema. TECHNIQUE: Multiplanar, multisequence MR images of the brain were obtained. COMPARISON: The study is compared to the earlier CT head of 12/28/2020. FINDINGS: BRAIN / INTRACRANIAL CONTENTS: There is notable edema within the right parietal lobe measuring 4.2 cm AP and transverse with associated mass effect and sulcal effacement. The edema correlates with the e arlier CT there is no clear evidence of definitive underlying enhancement on the included postcontras t imaging though the study was limited by motion. The edema again appears to be vasogenic and concern ing for infectious process given the patient's history, including toxoplasmosis. However, no further definitive lesions are identified with only minimal nonspecific white matter changes anteriorly.. The re is no corresponding increased signal on the diffusion imaging to indicate acute to infarct. Postco ntrast MRI imaging may be considered to evaluate for more subtle enhancing lesion. Neoplastic process would also be expected to demonstrate component of enhancement at. The ventricular system is within normal limits in size and configuration. No extra-axial fluid collec tions are appreciated. CRANIOCERVICAL JUNCTION: No significant abnormality. 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 The intracranial ve ssels otherwise demonstrate appropriate signal voids. ORBITS: No significant abnormality. SINUSES / MASTOIDS: This mild mucosal thickening within the maxillary and ethmoid sinuses. ADDITIONAL FINDINGS: None. IMPRESSION: 1. There is notable vasogenic edema within the right parietal lobe as detailed above which should be concerning for infectious process given the patient's history of immunocompromised status. No definit aisha enhancing lesions are seen on the earlier CT though follow-up MRI postcontrast imaging may be of benefit to demonstrate more subtle enhancing component. Signer Name: Bhavin Ascencio MD Signed: 12/29/2020 3:30 PM Workstation Name: [id number]
[2020-12-29] MEDS: FLUCONAZOLE 400 MG 200 ML IV SCH (22:13)
[2020-12-29] MEDS: AMPHOTERICIN B LIPID COMPLEX IV SCH (23:48)
[2020-12-29] MEDS: WATER IV SCH (23:48)
[2020-12-29] MEDS: DEXTROSE 5% IV SCH (23:48)
[2020-12-30] MEDS ORDERED: MORPHINE 2 MG/1 ML INJ IM ONE (01:26)
[2020-12-30] MEDS: ACETAMINOPHEN 325 MG TAB PO PRN (04:35)
--- NOTE | 2020-12-30 05:45 | Progress Note ---
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 His maintenance therapy was stopped 3 months ago, or after approximately 9 months total. It is unclear why at this point. Unclear if he had a negative Crpyto serum antigen. His current titre is 1:16, it is unclear as to what he was at the beginning. During his LP here his opening pressure was reportedly 0. Recs: -Ordered CD4 count and viral load -Follow-up CSF fungal culture -Follow-up brain MRI -Ordered Cryptotcoccus serum Ag -I will await confirmation with the above tests prior to restarting induction therapy given his normal opening pressure. It is not uncommon to still have a positive antigen after therapy, and I cannot compare it to a baseline. He reports being compliant on Biktarvy as well, so his CD4 may be good -Will also hold on restarting the Biktarvy until we confirm the diagnosis in case he was not truthful about compliance and does have acute Crypto meningitis. 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 He was noted to have jerking movements of his head. He has been seen in the hospital in the past for headaches a couple weeks prior. He had been having persistent headache since that time. Lumbar puncture was performed which showed 33 white cells with 78% lymphocytes. 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 This was diagnosed in [place] and was hospitalized for a month in December 2019. He is on Biktarvy. He had previously been on daily fluconazole as maintenance therapy for the cryptococcus, however when he transferred care from [place] he stopped his fluconazole at that time. Also complaints of LLE weakness.Walking with a limp. Afebrile since admission with a normal white count. 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 Day #2 12/29/20 Sx better LLE weakness persists ID consult appreciated Objective - Constitutional Vitals: Vital Signs - 12hr 12/29/20 12/30/20 12/30/20 21:53 01:25 02:06 Temperature 98.9 F 94 F L Pulse Rate 65 93 H 101 H Respiratory 16 20 Rate Blood Pressure Blood Pressure 108/72 174/90 [Right] O2 Sat by Pulse 100 99 Oximetry 12/30/20 12/30/20 12/30/20 02:08 04:41 04:42 Temperature 100.3 F H Pulse Rate 87 87 Respiratory 18 18 Rate Blood Pressure 107/67 Blood Pressure 114/78 [Right] O2 Sat by Pulse 96 97 Oximetry 12/30/20 05:16 Temperature 98.2 F Pulse Rate Respiratory Rate Blood Pressure Blood Pressure [Right] O2 Sat by Pulse Oximetry General appearance: Present: no acute distress, well-nourished - EENT Eyes: PERRL, EOM intact ENT: hearing intact, clear oral mucosa Ears: bilateral: normal - Neck Neck: supple, normal ROM - Respiratory Respiratory effort: normal Respiratory: bilateral: CTA - Breasts Breasts: normal - Cardiovascular Heart rate: 78 Rhythm: regular Heart Sounds: Present: S1 & S2. Absent: gallop, rub Extremities: no ischemia, pulses intact, No edema, normal color, Full ROM - Gastrointestinal General gastrointestinal: Present: soft, non-tender, non-distended, normal bowel sounds - Genitourinary Male genitourinary: normal - Integumentary Integumentary: clear, warm, dry - Musculoskeletal Musculoskeletal: strength equal bilaterally, left sided weakness (LLE weakness 4/5 power) - Neurologic Neurologic: CNII-XII intact, focal deficits - Psychiatric Psychiatric: memory intact, appropriate mood/affect, intact judgment & insight - Allied health notes Allied health notes reviewed: nursing, case management - Labs CBC & Chem 7: 12/28/20 09:33 12/28/20 09:33 Labs: Abnormal lab results 12/29/20 Range/Units 07:27 POC Glucose 121 H (70-105) mg/dL HEART Score - HEART Score Troponin: Troponin T < 0.010 ng/mL (0.00-0.029) 12/28/20 09:33
--- NOTE | 2020-12-30 09:13 | Progress Note ---
Assessment and Plan Assessment and plan: -- Cryptococcal meningitis Current Visit: Yes Status: Acute Plan to address problem: Started on Diflucan and Amphotericin However ID recommended to wait till the test reports confirm Diflucan amphotericin discontinued Follow work-up Management per ID -- Focal seizures Current Visit: Yes Status: Acute Plan to address problem: Started on Keppra IV Seizure precautions, do not drive Rt parietal lesion -- HIV positive Current Visit: Yes Status: Acute Plan to address problem: Hold Biktarvy per ID Supportive care -- Right parietal lobe lesion Current Visit: Yes Status: Acute Plan to address problem: Acute, --HIV 2 (human immunodeficiency virus type 2) Current Visit: Yes Status: Acute Plan to address problem: On retrovirals CD4 count oredered -- DVT prophylaxis Current Visit: Yes Status: Acute Plan to address problem: On Heparin Closely monitor the patient and adjust management as needed ID evaluation recommendations noted and appreciated 12/30/2020; follow MRI, tests and reports, adjust management as needed ID, neurology evaluation recommendations noted and appreciated History Interval history: I have seen and examined the patient at the bedside Patient's chart and medications reviewed No new episodes of seizures Vital signs noted Hospitalist Physical - Constitutional Vitals: Temp Pulse Resp BP Pulse Ox 98.2 F 87 18 107/67 97 12/30/20 05:16 12/30/20 04:42 12/30/20 04:41 12/30/20 04:41 12/30/20 04:42 General appearance: Present: no acute distress, well-nourished - EENT Eyes: Present: PERRL, EOM intact - Neck Neck: Present: supple, normal ROM - Respiratory Respiratory effort: normal Respiratory: bilateral: diminished, negative: rales, rhonchi, wheezing - Cardiovascular Rhythm: regular Heart Sounds: Present: S1 & S2 - Extremities Extremities: no ischemia, No edema - Abdominal General gastrointestinal: soft, non-tender, non-distended, normal bowel sounds - Integumentary Integumentary: Present: clear, warm - Psychiatric Psychiatric: appropriate mood/affect, cooperative - Neurologic Neurologic: CNII-XII intact, moves all extremities HEART Score - HEART Score Troponin: Troponin T < 0.010 ng/mL (0.00-0.029) 12/28/20 09:33 Results - Labs CBC & Chem 7: 12/28/20 09:33 12/28/20 09:33 Labs: Laboratory Last Values WBC 9.6 K/mm3 (4.5-11.0) 12/28/20 09:33 RBC 3.96 M/mm3 (3.65-5.03) 12/28/20 09:33 Hgb 13.0 gm/dl (11.8-15.2) 12/28/20 09:33 Hct 38.0 % (35.5-45.6) 12/28/20 09:33 MCV 96 fl (84-94) H 12/28/20 09:33 MCH 33 pg (28-32) H 12/28/20 09:33 MCHC 34 % (32-34) 12/28/20 09:33 RDW 14.3 % (13.2-15.2) 12/28/20 09:33 Plt Count 322 K/mm3 (140-440) 12/28/20 09:33 Lymph % (Auto) 10.5 % (13.4-35.0) L 12/28/20 09:33 [place] % (Auto) 4.7 % (0.0-7.3) 12/28/20 09:33 Eos % (Auto) 0.2 % (0.0-4.3) 12/28/20 09:33 Baso % (Auto) 0.3 % (0.0-1.8) 12/28/20 09:33 Lymph # (Auto) 1.0 K/mm3 (1.2-5.4) L 12/28/20 09:33 [place] # (Auto) 0.4 K/mm3 (0.0-0.8) 12/28/20 09:33 Eos # (Auto) 0.0 K/mm3 (0.0-0.4) 12/28/20 09:33 Baso # (Auto) 0.0 K/mm3 (0.0-0.1) 12/28/20 09:33 Seg Neutrophils % 84.3 % (40.0-70.0) H 12/28/20 09:33 Seg Neutrophils # 8.1 K/mm3 (1.8-7.7) H 12/28/20 09:33 PT 14.9 Sec. (12.2-14.9) 12/28/20 09:33 INR 1.17 (0.87-1.13) H 12/28/20 09:33 APTT 40.0 Sec. (24.2-36.6) H 12/28/20 09:33 Thrombin Time 15.2 Sec. (15.1-19.6) 12/28/20 09:33 Sodium 131 mmol/L (137-145) L 12/28/20 09:33 Potassium 4.5 mmol/L (3.6-5.0) 12/28/20 09:33 Chloride 97.8 mmol/L (98-107) L 12/28/20 09:33 Carbon Dioxide 21 mmol/L (22-30) L 12/28/20 09:33 Anion Gap 17 mmol/L 12/28/20 09:33 BUN 12 mg/dL (9-20) 12/28/20 09:33 Creatinine 0.9 mg/dL (0.8-1.3) 12/28/20 09:33 Estimated GFR > 60 ml/min 12/28/20 09:33 BUN/Creatinine Ratio 13 % 12/28/20 09:33 Glucose 101 mg/dL (75-100) H 12/28/20 09:33 POC Glucose 101 mg/dL (70-105) 12/29/20 21:40 Calcium 9.7 mg/dL (8.4-10.2) 12/28/20 09:33 Magnesium 2.00 mg/dL (1.7-2.3) 12/28/20 09:33 Total Bilirubin 0.60 mg/dL (0.1-1.2) 12/28/20 09:33 Direct Bilirubin < 0.2 mg/dL (0-0.2) 12/28/20 09:33 Indirect Bilirubin 0.4 mg/dL 12/28/20 09:33 AST 11 units/L (5-40) 12/28/20 09:33 ALT 10 units/L (7-56) 12/28/20 09:33 Alkaline Phosphatase 69 units/L (35-129) 12/28/20 09:33 Ammonia 15.0 umol/L (25-60) L 12/28/20 09:33 Total Creatine Kinase 126 units/L (55-170) 12/28/20 09:33 CK-MB (CK-2) < 1.0 ng/mL (0.0-4.0) 12/28/20 09:33 CK-MB (CK-2) Rel Index 0.7 (0-4) 12/28/20 09:33 Troponin T < 0.010 ng/mL (0.00-0.029) 12/28/20 09:33 Total Protein 8.3 g/dL (6.3-8.2) H 12/28/20 09:33 Albumin 3.9 g/dL (3.9-5) 12/28/20 09:33 Albumin/Globulin Ratio 0.9 % 12/28/20 09:33 CSF Appearance Clear 12/28/20 12:48 CSF Color Colorless 12/28/20 12:48 CSF WBC 33.85 /mm3 (1-10) 12/28/20 12:48 CSF RBC 3.3 /mm3 (0-0) 12/28/20 12:48 CSF Seg Neutrophils 3.0 % (0-6) 12/28/20 12:48 CSF Lymphocytes % 78.0 % (40-80) 12/28/20 12:48 CSF Reactive Lymphs 0 % 12/28/20 12:48 CSF Monocytes % 18.0 % (15-45) 12/28/20 12:48 CSF Eosinophils % 1.0 % 12/28/20 12:48 CSF Basophils 0 % 12/28/20 12:48 CSF Pathologist Review C 12/28/20 12:48 CSF Glucose 41 mg/dL 12/28/20 12:48 CSF Total Protein 121 mg/dL 12/28/20 12:48 Daniel/IV: Voiding Method Toilet Active Medications - Current Medications Current Medications: Generic Name Dose Route Start Last Admin Trade Name Freq PRN Reason Stop Dose Admin Acetaminophen 650 mg 12/29/20 02:08 12/30/20 04:35 Acetaminophen 325 Mg Tab PO 650 mg Q4H PRN Administration Pain,Mild (1-3),SHEARER,Fever>100.5 Emtricitabine 200 mg 12/29/20 12:00 12/29/20 14:02 Emtricitabine 200 Mg Cap PO 200 mg QDAY BAM Administration Fluconazole 200 mls @ 100 mls/hr 12/28/20 23:00 12/29/20 22:13 Diflucan IV 100 mls/hr Q24H BAM Administration Protocol Amphotericin B 325 mg/ 565 mls @ 250 mls/hr 12/28/20 23:00 12/29/20 23:48 Dextrose IV 250 mls/hr Q24H BAM Administration Protocol Levetiracetam 750 mg/ Dextrose 107.5 mls @ 400 mls/hr 12/28/20 23:00 12/29/20 21:38 IV 400 mls/hr Q12HR BAM Administration Tenofovir Disoproxil Fumarate 300 mg 12/29/20 12:00 12/29/20 14:00 Tenofovir 300 Mg Tab PO 300 mg QDAY BAM Administration
[2020-12-30] MEDS: levETIRAcetam 750 MG in DEXTROSE 5% IN WATER 100 ML IV SCH ×2 (09:27→22:03)
[2020-12-30] MEDS: EMTRICITABINE 200 MG CAP PO SCH (09:28)
[2020-12-30] MEDS: TENOFOVIR 300 MG TAB PO SCH (09:28)
[2020-12-30] MEDS: DOLUTEGRAVIR 50 MG TAB PO SCH (09:28)
--- NOTE | 2020-12-30 13:27 | Progress Note ---
Assessment and Plan Cultures: CSF Crpyto A:16. 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 His maintenance therapy was stopped 3 months ago, or after approximately 9 months total. It is unclear why at this point. Unclear if he had a negative Crpyto serum antigen. His current titre is 1:16, it is unclear as to what he was at the beginning. During his LP here his opening pressure was reportedly 0. #HIV: reports compliance with the Biktarvy. Unclear CD4 and viral load. I was unable to reach anyone at [facility] to discuss his previous lab results. #Headaches Recs: -Follow-up CD4 count and viral load -Follow-up CSF fungal culture -Follow-up Cryptotcoccus serum Ag -Given presence of vasogenic edema on brain MRI will start Induction therapy for cryptococcal meningitis. -Ordered Abelcet 5 mg/kg every 24 hours and flucytosine 500 mg every 6 hours. -Will hold on Biktarvy for now pending induction therapy as current immune status is unknown. -I have been unable to reach anyone at [facility] for his records. Thank you for the consult, we will continue to follow. Nichelle Mayo MD [facility] O: [phone] F: [phone] Subjective Date of service: 12/30/20 Principal diagnosis: Crytococcal meningitis Interval history: T-max 100.3 no acute change. Imaging personally reviewed: Brain MRI: Vasogenic edema Objective - Exam Narrative Exam: Physical Exam: Constitutional: Alert, cooperative. No acute distress Head, Ears, Nose: Normocephalic, atraumatic. External ears, nose normal Eyes: Conjunctivae/corneas clear. No icterus. No ptosis. Neck: Supple, no meningeal signs Oral: dentition fair, no thrush Cardiovascular: S1, S2 normal. Respiratory: Good air entry, clear to auscultation bilaterally GI: Soft, non-tender; bowel sounds normal. No peritoneal signs. Musculoskeletal: No pedal edema, no cyanosis. Skin: No rash or abscess Hem/Lymphatic: No palpable cervical or supraclavicular nodes. No lymphangitis Psych: Mood ok. Affect normal Neurological: Awake, alert, oriented. No gross abnormality - Constitutional Vitals: Vital Signs Temp Pulse Resp BP Pulse Ox 98.2 F 87 18 107/67 97 12/30/20 05:16 12/30/20 11:24 12/30/20 04:41 12/30/20 04:41 12/30/20 11:24 Temperature -Last 24 Hours Temperature 98.2 F Temperature 100.3 F Temperature 94 F Temperature 98.9 F Temperature 98.4 F - Labs CBC & Chem 7: 12/28/20 09:33 12/28/20 09:33 Labs: Abnormal lab results 12/30/20 Range/Units 08:01 POC Glucose 109 H (70-105) mg/dL
[2020-12-30] MEDS ORDERED: WATER IV SCH (13:30)
[2020-12-30] MEDS ORDERED: DEXTROSE 5% IV SCH (13:30)
[2020-12-30] MEDS ORDERED: AMPHOTERICIN B LIPID COMPLEX IV SCH (13:30)
[2020-12-30] MEDS ORDERED: FLUCONAZOLE IV SCH (15:00)
--- NOTE | 2020-12-30 16:23 | Consultation ---
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 He currently notes that his headaches have resolved and he notes improvement but no resolution of the left arm/leg numbness. He notes no changes in his primary senses. Past History Past Medical History: other (HIV, Cryptococcus meningitis) Medications and Allergies Allergies Allergy/AdvReac Type Severity Reaction Status Date / Time No Known Allergies Allergy Verified 12/28/20 17:20 Home Medications Medication Instructions Recorded Confirmed Last Taken Type Fluconazole [Diflucan TAB] 200 mg PO QDAY 30 Days #30 tablet 12/12/20 12/28/20 Unknown Rx Bictegrav/Emtricit/Tenofov Ala 1 each PO QDAY 12/28/20 12/28/20 Unknown History [Biktarvy 50-200-25 mg (Nf)] Active Meds: Active Medications Acetaminophen (Acetaminophen 325 Mg Tab) 650 mg PO Q4H PRN PRN Reason: Pain,Mild (1-3),SHEARER,Fever>100.5 Last Admin: 12/30/20 04:35 Dose: 650 mg Documented by: Flucytosine (Flucytosine 500 Mg Cap) 2,000 mg PO Q6HR BAM Levetiracetam 750 mg/ Dextrose 107.5 mls @ 400 mls/hr IV Q12HR [facility] Last Admin: 12/30/20 09:27 Dose: 400 mls/hr Documented by: Fluconazole 1,200 mg/ (Miscellaneous Information) 601 mls @ 100 mls/hr IV Q24H [facility] Last Admin: 12/30/20 14:54 Dose: 100 mls/hr Documented by: Review of Systems All systems: negative (as per HPI;) Physical Examination - Vital Signs Vital Signs: Vital Signs Temp Pulse Resp BP Pulse Ox 98.2 F 71 17 129/89 99 12/28/20 08:30 12/28/20 08:30 12/28/20 08:30 12/28/20 08:30 12/28/20 08:30 - Physical Exam Narrative exam: Gen: nad, well-nourished; Head: normocephalic; Eyes: no gaze deviation; no ptosis; ENT: normal vocalization; CVS: warm and well-perfused; Pulm: no respiratory distress; GI: appears non-distended; Ext: no cyanosis at distal extremities; Skin: no acute rash at distal extremities; Heme: no pathologic bruising at distal extremities; Neuro: alert, oriented to name, age, month, year, surroundings, no dysarthria, no aphasia, CN 2 - PERRL, visual leija intact, CN 3, 4, 6 - EOMI, CN 5 - facial sensation symmetric to light touch, CN 7 - facial movement symmetric, CN 8 - hearing grossly intact, CN 9, 10 - uvula midline, CN 11 - shrug symmetric, CN 12 - tongue midline; Motor - at least 5-/5 at right exts and at least 4+/5 at LUE and proximal LLE at least 4/5 at distal LLE; Sensory - light touch decreased at distal LLE, Cerebellar - fnf /hts intact, Gait - deferred secondary to fall risk; Results - Laboratory Findings CBC and BMP: 12/28/20 09:33 12/28/20 09:33 Abnormal Lab Findings: Abnormal Labs 12/28/20 12/28/20 12/28/20 09:33 09:33 09:33 MCV 96 H MCH 33 H Lymph % (Auto) 10.5 L Lymph # (Auto) 1.0 L Seg Neutrophils % 84.3 H Seg Neutrophils # 8.1 H INR 1.17 H APTT 40.0 H Sodium 131 L Chloride 97.8 L Carbon Dioxide 21 L Glucose 101 H POC Glucose Ammonia Total Protein 12/28/20 12/28/20 12/29/20 09:33 09:33 07:27 MCV MCH Lymph % (Auto) Lymph # (Auto) Seg Neutrophils % Seg Neutrophils # INR APTT Sodium Chloride Carbon Dioxide Glucose POC Glucose 121 H Ammonia 15.0 L Total Protein 8.3 H 12/30/20 08:01 MCV MCH Lymph % (Auto) Lymph # (Auto) Seg Neutrophils % Seg Neutrophils # INR APTT Sodium Chloride Carbon Dioxide Glucose POC Glucose 109 H Ammonia Total Protein Assessment and Plan 35 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 1. Cryptococcal Lesion / Meningo/Encephalitis - mri brain w/ contrast ordered to confirm evidence of abscess vs. neoplasm; mri brain w/o contrast reviewed and it correlates with patient's presentation; csf confirmation w/ elevated wbc w/ lymphocyte predominance noted; if cryptococcal antigen is negative, consider csf flow cytometry / cytology; management per ID. 2. Left-sided numbness - pt/ot evaluaiton for gait stability. 3. HIV / AIDS - per ID. Alan Koenig MD Neurology
[2020-12-30] MEDS: FLUCYTOSINE 500 MG CAP PO SCH ×2 (17:08→23:47)
[2020-12-30] MEDS ORDERED: FLUCYTOSINE 500 MG CAP PO SCH ×2 (18:00)
[2020-12-31 05:41] LABS: Alanine Aminotransferase 9 units/L (7-56); Albumin 3.8 g/dL (3.9-5)
[2020-12-31 05:45] LABS: Bilirubin,Direct < 0.2 mg/dL (0-0.2)
[2020-12-31] MEDS: FLUCYTOSINE 500 MG CAP PO SCH ×3 (05:53→18:00)
--- NOTE | 2020-12-31 09:28 | Magnetic Resonance Report ---
MRI BRAIN 12/31/2020 INDICATION / CLINICAL INFORMATION: Abnormal MRI. Postcontrast follow-up.. TECHNIQUE: Multiplanar, multisequence MR images of the brain were obtained. Postcontrast images were obtained. COMPARISON: MRI 12/29/2020 FINDINGS: BRAIN / INTRACRANIAL CONTENTS: Postcontrast T1-weighted images of the brain were obtained and compare d to the noncontrast exam from 12/29/2020. The area of abnormal T2-weighted signal in the right parietal lobe demonstrates prominent leptomening eal enhancement. This enhancement is limited to the area of abnormal signal. Focal leptomeningeal enh ancement can be seen in association with neoplasm, infection, or recent injury and hemorrhage respons e. The enhancement appears to be limited to the left meningeal surface, without definite parenchymal en hancing lesion. No separate areas of abnormal enhancement are noted. IMPRESSION: Focal leptomeningeal enhancement in right parietal lobe, associated with the area of signal abnormal ity seen on the prior exam. Signer Name: John Koehler MD Signed: 12/31/2020 9:23 AM Workstation Name: [id number]
[2020-12-31] MEDS: levETIRAcetam 750 MG in DEXTROSE 5% IN WATER 100 ML IV SCH (09:51)
[2020-12-31] MEDS ORDERED: WATER IV ONE (11:00)
[2020-12-31] MEDS ORDERED: AMPHOTERICIN B LIPOSOME IV ONE (11:00)
[2020-12-31] MEDS ORDERED: DEXTROSE 5% IV ONE (11:00)
--- NOTE | 2020-12-31 16:29 | Progress Note ---
Assessment and Plan Cultures: CSF Crpyto A:16. 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 His maintenance therapy was stopped 3 months ago, or after approximately 9 months total. It is unclear why at this point. Unclear if he had a negative Crpyto serum antigen. His current titre is 1:16, it is unclear as to what he was at the beginning. During his LP here his opening pressure was reportedly 0. #HIV: reports compliance with the Biktarvy. Unclear CD4 and viral load. I was unable to reach anyone at [facility] to discuss his previous lab results. #Headaches Recs: -Follow-up CD4 count and viral load -Follow-up CSF fungal culture -Given presence of vasogenic edema on brain MRI will start Induction therapy for cryptococcal meningitis. -Pharmacy was able to obtain AmBisome 4 mg/kg every 24 hours. Continue flucytosine 25 mg/kg every 6 hours. -Will hold on Biktarvy for now pending induction therapy as current immune status is unknown. -I have been unable to reach anyone at [facility] for his records. Thank you for the consult, we will continue to follow. Nichelle Mayo MD [facility] O: [phone] F: [phone] Subjective Date of service: 12/31/20 Principal diagnosis: Crytococcal meningitis Interval history: Afebrile, no acute changes. Received ampicillin overnight with no issues. Serum grew coccus antigen positive at 1:128. Headaches improved, ongoing left arm/leg numbness. Imaging personally viewed: Brain MRI focal leptomeningeal enhancement in the right parietal lobe Objective - Exam Narrative Exam: Physical Exam: Constitutional: Alert, cooperative. No acute distress Head, Ears, Nose: Normocephalic, atraumatic. External ears, nose normal Eyes: Conjunctivae/corneas clear. No icterus. No ptosis. Neck: Supple, no meningeal signs Oral: dentition fair, no thrush Cardiovascular: S1, S2 normal. Respiratory: Good air entry, clear to auscultation bilaterally GI: Soft, non-tender; bowel sounds normal. No peritoneal signs. Musculoskeletal: No pedal edema, no cyanosis. Skin: No rash or abscess Hem/Lymphatic: No palpable cervical or supraclavicular nodes. No lymphangitis Psych: Mood ok. Affect normal Neurological: Awake, alert, oriented. No gross abnormality - Constitutional Vitals: Vital Signs Temp Pulse Resp BP Pulse Ox 98.2 F 71 18 107/74 100 12/31/20 10:51 12/31/20 10:51 12/31/20 10:51 12/31/20 10:51 12/31/20 10:51 Temperature -Last 24 Hours Temperature 98.2 F Temperature 97.8 F Temperature 98.7 F Temperature 98.2 F - Labs CBC & Chem 7: 12/28/20 09:33 12/28/20 09:33 Labs: Abnormal lab results 12/31/20 Range/Units 04:33 Albumin 3.8 L (3.9-5) g/dL
--- NOTE | 2020-12-31 18:19 | Progress Note ---
Assessment and Plan Assessment and plan: -- Cryptococcal meningitis Current Visit: Yes Status: Acute Plan to address problem: Started amphotericin B and flucytosine ID following Continue supportive care -- Focal seizures Current Visit: Yes Status: Acute Plan to address problem: Started on Keppra IV Seizure precautions, do not drive Rt parietal lesion -- HIV positive Current Visit: Yes Status: Acute Plan to address problem: Hold Biktarvy per ID Supportive care -- Right parietal lobe lesion Current Visit: Yes Status: Acute Plan to address problem: Acute, --HIV 2 (human immunodeficiency virus type 2) Current Visit: Yes Status: Acute Plan to address problem: On retrovirals CD4 count oredered -- DVT prophylaxis Current Visit: Yes Status: Acute Plan to address problem: On Heparin Closely monitor the patient and adjust management as needed ID evaluation recommendations noted and appreciated 12/30/2020; follow MRI, tests and reports, adjust management as needed ID, neurology evaluation recommendations noted and appreciated 12/31/2020; continue amphotericinB and flucytosine Seizure precautions and seizure medications History Interval history: I have seen and examined the patient at the bedside Patient's chart and medications reviewed Patient feels slightly better Afebrile, vital signs reviewed Hospitalist Physical - Constitutional Vitals: Temp Pulse Resp BP Pulse Ox 98.5 F 71 22 108/67 99 12/31/20 16:34 12/31/20 16:34 12/31/20 16:34 12/31/20 16:34 12/31/20 16:34 General appearance: Present: no acute distress, well-nourished - EENT Eyes: Present: PERRL, EOM intact - Neck Neck: Present: supple, normal ROM - Respiratory Respiratory effort: normal Respiratory: bilateral: diminished, negative: rales, rhonchi, wheezing - Cardiovascular Rhythm: regular Heart Sounds: Present: S1 & S2 - Extremities Extremities: no ischemia, No edema - Abdominal General gastrointestinal: soft, non-tender, non-distended, normal bowel sounds - Integumentary Integumentary: Present: clear, warm - Psychiatric Psychiatric: appropriate mood/affect, cooperative - Neurologic Neurologic: moves all extremities HEART Score - HEART Score Troponin: Troponin T < 0.010 ng/mL (0.00-0.029) 12/28/20 09:33 Results - Labs CBC & Chem 7: 12/28/20 09:33 12/28/20 09:33 Labs: Laboratory Last Values WBC 9.6 K/mm3 (4.5-11.0) 12/28/20 09:33 RBC 3.96 M/mm3 (3.65-5.03) 12/28/20 09:33 Hgb 13.0 gm/dl (11.8-15.2) 12/28/20 09:33 Hct 38.0 % (35.5-45.6) 12/28/20 09:33 MCV 96 fl (84-94) H 12/28/20 09:33 MCH 33 pg (28-32) H 12/28/20 09:33 MCHC 34 % (32-34) 12/28/20 09:33 RDW 14.3 % (13.2-15.2) 12/28/20 09:33 Plt Count 322 K/mm3 (140-440) 12/28/20 09:33 Lymph % (Auto) 10.5 % (13.4-35.0) L 12/28/20 09:33 [place] % (Auto) 4.7 % (0.0-7.3) 12/28/20 09:33 Eos % (Auto) 0.2 % (0.0-4.3) 12/28/20 09:33 Baso % (Auto) 0.3 % (0.0-1.8) 12/28/20 09:33 Lymph # (Auto) 1.0 K/mm3 (1.2-5.4) L 12/28/20 09:33 [place] # (Auto) 0.4 K/mm3 (0.0-0.8) 12/28/20 09:33 Eos # (Auto) 0.0 K/mm3 (0.0-0.4) 12/28/20 09:33 Baso # (Auto) 0.0 K/mm3 (0.0-0.1) 12/28/20 09:33 Seg Neutrophils % 84.3 % (40.0-70.0) H 12/28/20 09:33 Seg Neutrophils # 8.1 K/mm3 (1.8-7.7) H 12/28/20 09:33 PT 14.9 Sec. (12.2-14.9) 12/28/20 09:33 INR 1.17 (0.87-1.13) H 12/28/20 09:33 APTT 40.0 Sec. (24.2-36.6) H 12/28/20 09:33 Thrombin Time 15.2 Sec. (15.1-19.6) 12/28/20 09:33 Sodium 131 mmol/L (137-145) L 12/28/20 09:33 Potassium 4.5 mmol/L (3.6-5.0) 12/28/20 09:33 Chloride 97.8 mmol/L (98-107) L 12/28/20 09:33 Carbon Dioxide 21 mmol/L (22-30) L 12/28/20 09:33 Anion Gap 17 mmol/L 12/28/20 09:33 BUN 12 mg/dL (9-20) 12/28/20 09:33 Creatinine 0.9 mg/dL (0.8-1.3) 12/28/20 09:33 Estimated GFR > 60 ml/min 12/28/20 09:33 BUN/Creatinine Ratio 13 % 12/28/20 09:33 Glucose 101 mg/dL (75-100) H 12/28/20 09:33 POC Glucose 93 mg/dL (70-105) 12/30/20 23:39 Calcium 9.7 mg/dL (8.4-10.2) 12/28/20 09:33 Magnesium 2.00 mg/dL (1.7-2.3) 12/28/20 09:33 Total Bilirubin 0.40 mg/dL (0.1-1.2) 12/31/20 04:33 Direct Bilirubin < 0.2 mg/dL (0-0.2) 12/31/20 04:33 Indirect Bilirubin 0.4 mg/dL 12/28/20 09:33 AST 7 units/L (5-40) 12/31/20 04:33 ALT 9 units/L (7-56) 12/31/20 04:33 Alkaline Phosphatase 61 units/L (35-129) 12/31/20 04:33 Ammonia 15.0 umol/L (25-60) L 12/28/20 09:33 Total Creatine Kinase 126 units/L (55-170) 12/28/20 09:33 CK-MB (CK-2) < 1.0 ng/mL (0.0-4.0) 12/28/20 09:33 CK-MB (CK-2) Rel Index 0.7 (0-4) 12/28/20 09:33 Troponin T < 0.010 ng/mL (0.00-0.029) 12/28/20 09:33 Total Protein 7.4 g/dL (6.3-8.2) 12/31/20 04:33 Albumin 3.8 g/dL (3.9-5) L 12/31/20 04:33 Albumin/Globulin Ratio 1.1 % 12/31/20 04:33 CSF Appearance Clear 12/28/20 12:48 CSF Color Colorless 12/28/20 12:48 CSF WBC 33.85 /mm3 (1-10) 12/28/20 12:48 CSF RBC 3.3 /mm3 (0-0) 12/28/20 12:48 CSF Seg Neutrophils 3.0 % (0-6) 12/28/20 12:48 CSF Lymphocytes % 78.0 % (40-80) 12/28/20 12:48 CSF Reactive Lymphs 0 % 12/28/20 12:48 CSF Monocytes % 18.0 % (15-45) 12/28/20 12:48 CSF Eosinophils % 1.0 % 12/28/20 12:48 CSF Basophils 0 % 12/28/20 12:48 CSF Pathologist Review C 12/28/20 12:48 CSF Glucose 41 mg/dL 12/28/20 12:48 CSF Total Protein 121 mg/dL 12/28/20 12:48 CSF VDRL Nonreactive (Nonreactive) 12/28/20 12:48 Microbiology: Microbiology 12/28/20 12:48 Cerebral Spinal Fluid CSF Culture - Preliminary 12/28/20 12:48 Cerebral Spinal Fluid Cryptococcal Antigen - Final 12/29/20 09:00 Serum Cryptococcal Antigen - Final Daniel/IV: Voiding Method Toilet Active Medications - Current Medications Current Medications: Generic Name Dose Route Start Last Admin Trade Name Freq PRN Reason Stop Dose Admin Acetaminophen 650 mg 12/29/20 02:08 12/30/20 04:35 Acetaminophen 325 Mg Tab PO 650 mg Q4H PRN Administration Pain,Mild (1-3),SHEARER,Fever>100.5 Flucytosine 2,000 mg 12/30/20 18:00 12/31/20 18:00 Flucytosine 500 Mg Cap PO 2,000 mg Q6HR BAM Administration Amphotericin B 300 mg/ 250 mls @ 125 mls/hr 01/01/21 10:00 Dextrose IV Q24HR BAM Levetiracetam 750 mg 12/31/20 22:00 Levetiracetam 500 Mg Tab PO BID BAM
[2020-12-31] MEDS: levETIRAcetam 500 MG TAB PO SCH (22:35)
[2020-12-31] MEDS ORDERED: ONDANSETRON 4 MG/2 ML INJ IM ONE (22:38)
[2021-01-01] MEDS: FLUCYTOSINE 500 MG CAP PO SCH ×4 (00:41→18:42)
[2021-01-01] MEDS: levETIRAcetam 500 MG TAB PO SCH ×2 (09:20→22:27)
[2021-01-01] MEDS: WATER IV SCH (09:21)
[2021-01-01] MEDS: DEXTROSE 5% IV SCH (09:21)
[2021-01-01] MEDS: AMPHOTERICIN B LIPOSOME IV SCH (09:21)
[2021-01-01 10:25] LABS: Alanine Aminotransferase 10 units/L (7-56); Albumin 3.6 g/dL (3.9-5)
[2021-01-01 10:26] LABS: Bilirubin,Direct < 0.2 mg/dL (0-0.2)
--- NOTE | 2021-01-01 10:29 | Progress Note ---
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 Serum cryptococcus antigen: 1:128 Continue amphotericin and flucytosine ID following -- Focal seizures Current Visit: Yes Status: Acute Plan to address problem: Started on Keppra IV Seizure precautions, do not drive Rt parietal lesion, treatment per neurology -- HIV positive Current Visit: Yes Status: Acute Plan to address problem: HIV viral load: 39 CD4 count: 158 (23%) Hold Biktarvy per ID Supportive care -- Right parietal lobe lesion Current Visit: Yes Status: Acute Plan to address problem: Acute, management per neurology --HIV 2 (human immunodeficiency virus type 2) Current Visit: Yes Status: Acute Plan to address problem: On retrovirals CD4 count oredered -- DVT prophylaxis Current Visit: Yes Status: Acute Plan to address problem: On Heparin Closely monitor the patient and adjust management as needed ID evaluation recommendations noted and appreciated Brief history 35 y M PMHx HIV, Cryptococcus meningitis presents with persistent headaches, work-up is consistent with cryptococcal meningitis Started on amphotericin B and flucytosine, also patient is HIV on antiretrovirals, medications held due to cryptococcus meningitis ID following . 12/30/2020; follow MRI, tests and reports, adjust management as needed ID, neurology evaluation recommendations noted and appreciated 12/31/2020; patient is on amphotericin and flucytosine per ID Antiretrovirals held at this point 01/01/2021; patient feels better on amphotericin and flucytosine Closely monitor patient clinically and follow ID recommendations History Interval history: I have seen and examined the patient at the bedside Patient's chart and medications reviewed Patient feels slightly better Mild headache, afebrile Vital signs reviewed Hospitalist Physical - Constitutional Vitals: Temp Pulse Resp BP Pulse Ox 97.6 F 64 16 100/42 99 01/01/21 04:59 12/31/20 21:16 01/01/21 04:59 01/01/21 04:59 12/31/20 21:16 General appearance: Present: no acute distress, well-nourished - EENT Eyes: Present: PERRL, EOM intact - Neck Neck: Present: supple, normal ROM - Respiratory Respiratory effort: normal Respiratory: bilateral: diminished, negative: rales, rhonchi, wheezing - Cardiovascular Rhythm: regular Heart Sounds: Present: S1 & S2 - Extremities Extremities: no ischemia, No edema - Abdominal General gastrointestinal: soft, non-tender, non-distended, normal bowel sounds - Integumentary Integumentary: Present: clear, warm - Psychiatric Psychiatric: appropriate mood/affect, cooperative - Neurologic Neurologic: moves all extremities HEART Score - HEART Score Troponin: Troponin T < 0.010 ng/mL (0.00-0.029) 12/28/20 09:33 Results - Labs CBC & Chem 7: 12/28/20 09:33 12/28/20 09:33 Labs: Laboratory Last Values WBC 9.6 K/mm3 (4.5-11.0) 12/28/20 09: RBC 3.96 M/mm3 (3.65-5.03) 12/28/20 09: Hgb 13.0 gm/dl (11.8-15.2) 12/28/20 09: Hct 38.0 % (35.5-45.6) 12/28/20 09: MCV 96 fl (84-94) H 12/28/20 09: MCH 33 pg (28-32) H 12/28/20 09: MCHC 34 % (32-34) 12/28/20 09: RDW 14.3 % (13.2-15.2) 12/28/20 09: Plt Count 322 K/mm3 (140-440) 12/28/20 09:33 Lymph % (Auto) 10.5 % (13.4-35.0) L 12/28/20 09: Petroleum % (Auto) 4.7 % (0.0-7.3) 12/28/20 09: Eos % (Auto) 0.2 % (0.0-4.3) 12/28/20 09: Baso % (Auto) 0.3 % (0.0-1.8) 12/28/20 09: Lymph # (Auto) 1.0 K/mm3 (1.2-5.4) L 12/28/20 09: Petroleum # (Auto) 0.4 K/mm3 (0.0-0.8) 12/28/20 09:33 Eos # (Auto) 0.0 K/mm3 (0.0-0.4) 12/28/20 09:33 Baso # (Auto) 0.0 K/mm3 (0.0-0.1) 12/28/20 09:33 Seg Neutrophils % 84.3 % (40.0-70.0) H 12/28/20 09:33 Seg Neutrophils # 8.1 K/mm3 (1.8-7.7) H 12/28/20 09:33 PT 14.9 Sec. (12.2-14.9) 12/28/20 09:33 INR 1.17 (0.87-1.13) H 12/28/20 09:33 APTT 40.0 Sec. (24.2-36.6) H 12/28/20 09:33 Thrombin Time 15.2 Sec. (15.1-19.6) 12/28/20 09:33 Sodium 131 mmol/L (137-145) L 12/28/20 09:33 Potassium 4.5 mmol/L (3.6-5.0) 12/28/20 09:33 Chloride 97.8 mmol/L (98-107) L 12/28/20 09:33 Carbon Dioxide 21 mmol/L (22-30) L 12/28/20 09:33 Anion Gap 17 mmol/L 12/28/20 09:33 BUN 12 mg/dL (9-20) 12/28/20 09:33 Creatinine 0.9 mg/dL (0.8-1.3) 12/28/20 09:33 Estimated GFR > 60 ml/min 12/28/20 09:33 BUN/Creatinine Ratio 13 % 12/28/20 09:33 Glucose 101 mg/dL (75-100) H 12/28/20 09:33 POC Glucose 103 mg/dL (70-105) 12/31/20 16:31 Calcium 9.7 mg/dL (8.4-10.2) 12/28/20 09:33 Magnesium 2.00 mg/dL (1.7-2.3) 12/28/20 09:33 Total Bilirubin 0.40 mg/dL (0.1-1.2) 01/01/21 09:38 Direct Bilirubin < 0.2 mg/dL (0-0.2) 01/01/21 09:38 Indirect Bilirubin 0.2 mg/dL 01/01/21 09:38 AST 9 units/L (5-40) 01/01/21 09:38 ALT 10 units/L (7-56) 01/01/21 09:38 Alkaline Phosphatase 63 units/L (35-129) 01/01/21 09:38 Ammonia 15.0 umol/L (25-60) L 12/28/20 09:33 Total Creatine Kinase 126 units/L (55-170) 12/28/20 09:33 CK-MB (CK-2) < 1.0 ng/mL (0.0-4.0) 12/28/20 09:33 CK-MB (CK-2) Rel Index 0.7 (0-4) 12/28/20 09:33 Troponin T < 0.010 ng/mL (0.00-0.029) 12/28/20 09:33 Total Protein 7.4 g/dL (6.3-8.2) 01/01/21 09:38 Albumin 3.6 g/dL (3.9-5) L 01/01/21 09:38 Albumin/Globulin Ratio 0.9 % 01/01/21 09:38 CSF Appearance Clear 12/28/20 12:48 CSF Color Colorless 12/28/20 12:48 CSF WBC 33.85 /mm3 (1-10) 12/28/20 12:48 CSF RBC 3.3 /mm3 (0-0) 12/28/20 12:48 CSF Seg Neutrophils 3.0 % (0-6) 12/28/20 12:48 CSF Lymphocytes % 78.0 % (40-80) 12/28/20 12:48 CSF Reactive Lymphs 0 % 12/28/20 12:48 CSF Monocytes % 18.0 % (15-45) 12/28/20 12:48 CSF Eosinophils % 1.0 % 12/28/20 12:48 CSF Basophils 0 % 12/28/20 12:48 CSF Pathologist Review C 12/28/20 12:48 CSF Glucose 41 mg/dL 12/28/20 12:48 CSF Total Protein 121 mg/dL 12/28/20 12:48 CSF VDRL Nonreactive (Nonreactive) 12/28/20 12:48 Microbiology: Microbiology 12/28/20 12:48 Cerebral Spinal Fluid CSF Culture - Preliminary 12/28/20 12:48 Cerebral Spinal Fluid Cryptococcal Antigen - Final Daniel/IV: Voiding Method Toilet Active Medications - Current Medications Current Medications: Generic Name Dose Route Start Last Admin Trade Name Freq PRN Reason Stop Dose Admin Acetaminophen 650 mg 12/29/20 02:08 12/30/20 04:35 Acetaminophen 325 Mg Tab PO 650 mg Q4H PRN Administration Pain,Mild (1-3),SHEARER,Fever>100.5 Flucytosine 2,000 mg 12/30/20 18:00 01/01/21 05:48 Flucytosine 500 Mg Cap PO 2,000 mg Q6HR BAM Administration Amphotericin B 300 mg/ 250 mls @ 125 mls/hr 01/01/21 10:00 01/01/21 09:21 Dextrose IV 125 mls/hr Q24HR BAM Administration Levetiracetam 750 mg 12/31/20 22:00 01/01/21 09:20 Levetiracetam 500 Mg Tab PO 750 mg BID BAM Administration
[2021-01-01 10:57] LABS: HIV-1 RNA QN PCR 1.59 Log cps/mL
--- NOTE | 2021-01-01 11:31 | Electrocardiograph Report ---
[facility] Test Date: 2020-12-28 Test Time: 10:01:55 Pat Name: TANA MISTRY Department: Room: 91 1 Gender: M Loss Prevention Guard: AMITA : 1985 Requested By: ANNEL MATUTE Order Number: [id number] Reading MD: Curt Boucher Measurements Intervals Colon Rate: 58 P: 25 NV: 166 QRS: 8 QRSD: 97 T: 16 QT: 389 QTc: 381 Interpretive Statements Sinus bradycardia No previous ECG available for comparison Electronically Signed On 01-01-2021 11:31:00 EDT by Curt Boucher
[2021-01-01 13:25] LABS: CD4/CD8 Ratio 0.68 (0.86-5.00)
--- NOTE | 2021-01-01 13:49 | Progress Note ---
Assessment and Plan Cultures: CSF Crpyto A:16. 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 His maintenance therapy was stopped 3 months ago, or after approximately 9 months total. It is unclear why at this point. Unclear if he had a negative Crpyto serum antigen. His current titre is 1:16, it is unclear as to what he was at the beginning. During his LP here his opening pressure was reportedly 0. #HIV: reports compliance with the Biktarvy. Immune status and HIV control actually pretty good, a bit surprising he developed symptoms again. #Headaches Recs: -Follow-up CSF fungal culture. Confirmed with lab it was sent. -Given presence of vasogenic edema on brain MRI will start Induction therapy for cryptococcal meningitis. -Pharmacy was able to obtain AmBisome 4 mg/kg every 24 hours. Continue flucytosine 25 mg/kg every 6 hours. -Will hold on Biktarvy for now pending induction therapy Thank you for the consult, we will continue to follow. Nichelle Mayo MD [facility] ([facility] O: [phone] F: [phone] Subjective Date of service: 01/01/21 Principal diagnosis: Crytococcal meningitis Interval history: Afebrile, no acute change. Viral load 39 CD4 count 158 (23%) Objective - Exam Narrative Exam: Physical Exam: Constitutional: Alert, cooperative. No acute distress Head, Ears, Nose: Normocephalic, atraumatic. External ears, nose normal Eyes: Conjunctivae/corneas clear. No icterus. No ptosis. Neck: Supple, no meningeal signs Oral: dentition fair, no thrush Cardiovascular: S1, S2 normal. Respiratory: Good air entry, clear to auscultation bilaterally GI: Soft, non-tender; bowel sounds normal. No peritoneal signs. Musculoskeletal: No pedal edema, no cyanosis. Skin: No rash or abscess Hem/Lymphatic: No palpable cervical or supraclavicular nodes. No lymphangitis Psych: Mood ok. Affect normal Neurological: Awake, alert, oriented. No gross abnormality - Constitutional Vitals: Vital Signs Temp Pulse Resp BP Pulse Ox 98.2 F 70 20 118/68 100 01/01/21 11:05 01/01/21 11:05 01/01/21 11:05 01/01/21 11:05 01/01/21 11:05 Temperature -Last 24 Hours Temperature 98.2 F Temperature 97.6 F Temperature 99.0 F Temperature 98.5 F - Labs CBC & Chem 7: 12/28/20 09:33 12/28/20 09:33 Labs: Abnormal lab results 12/29/20 12/29/20 01/01/21 Range/Units 16:01 16:01 09:38 Abs Lymphs (Manual) 675 L (850-3900) cells/uL Albumin 3.6 L (3.9-5) g/dL Lymph Enumerat CD4/CD8 0.68 L (0.86-5.00) Absolute CD3 Count 401 L (840-3060) cells/uL % CD4 Cells 23 L (30-61) % Absolute CD4 Count 158 L (490-1740) cells/uL % CD19 Cells 37 H (6-29) % HIV-1 RNA PCR copies/ml 39 H Copies/mL HIV-1 RNA (PCR) log 1.59 H Log cps/mL
[2021-01-02] MEDS: FLUCYTOSINE 500 MG CAP PO SCH ×5 (00:39→23:16)
[2021-01-02 06:25] LABS: Basophils % (Auto) 0.4 % (0.0-1.8); Eosinophils # (Auto) 0.1 K/mm3 (0.0-0.4); Eosinophils % (Auto) 2.4 % (0.0-4.3); Lymphocytes # (Auto) 0.9 K/mm3 (1.2-5.4); Lymphocytes % (Auto) 20.7 % (13.4-35.0); Mean Corpuscular HGB Conc 36 % (32-34); Mean Corpuscular Volume 95 fl (84-94); Monocytes # (Auto) 0.5 K/mm3 (0.0-0.8); Monocytes % (Auto) 10.5 % (0.0-7.3); Platelet Count 250 K/mm3 (140-440); Red Blood Count 3.75 M/mm3 (3.65-5.03); Red Cell Distribution Width 13.7 % (13.2-15.2)
[2021-01-02 06:29] LABS: Hematocrit 35.6 % (35.5-45.6); Hemoglobin 12.9 gm/dl (11.8-15.2)
[2021-01-02 06:51] LABS: Alanine Aminotransferase 10 units/L (7-56); Albumin 3.6 g/dL (3.9-5); BUN/Creatinine Ratio 13; Blood Urea Nitrogen 16 mg/dL (9-20); Calcium 9.4 mg/dL (8.4-10.2); Hemolysis Index 0
[2021-01-02 06:53] LABS: Bilirubin,Direct < 0.2 mg/dL (0-0.2)
[2021-01-02] MEDS: ACETAMINOPHEN 325 MG TAB PO PRN (07:26)
[2021-01-02] MEDS: levETIRAcetam 500 MG TAB PO SCH ×2 (09:20→21:34)
[2021-01-02] MEDS ORDERED: DEXTROSE 5% IN WATER 100 ML IV PRN (10:37)
[2021-01-02] MEDS: DEXTROSE 5% IV SCH (10:38)
[2021-01-02] MEDS: WATER IV SCH (10:38)
[2021-01-02] MEDS: AMPHOTERICIN B LIPOSOME IV SCH (10:38)
[2021-01-02] MEDS: DEXTROSE 5% IN WATER 100 ML IV SCH (11:01)
--- NOTE | 2021-01-02 14:35 | Progress Note ---
Assessment and Plan Cultures: CSF Crpyto A:16. 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 His maintenance therapy was stopped 3 months ago, or after approximately 9 months total. It is unclear why at this point. Unclear if he had a negative Crpyto serum antigen. His current titre is 1:16, it is unclear as to what he was at the beginning, serum titre elevated at 1:128 as well. Likely secondary to premature stopping of his outpatient fluconazole. #HIV: reports compliance with the Biktarvy. Immune status and HIV control actually pretty good, a bit surprising he developed symptoms again. #Headaches Recs: -Follow-up CSF fungal culture. Confirmed with lab it was sent. -Given presence of vasogenic edema on brain MRI will start Induction therapy for cryptococcal meningitis. -Pharmacy was able to obtain AmBisome 4 mg/kg every 24 hours. Continue flucytosine 25 mg/kg every 6 hours. Needs 2 weeks induction therapy -Will hold on Biktarvy for now pending induction therapy Thank you for the consult, we will continue to follow. Nichelle Mayo MD [facility] O: [phone] F: [phone] Subjective Date of service: 01/02/21 Principal diagnosis: Crytococcal meningitis Interval history: Afebrile, white count 4.4. No acute changes. Headaches better Objective - Exam Narrative Exam: Physical Exam: Constitutional: Alert, cooperative. No acute distress Head, Ears, Nose: Normocephalic, atraumatic. External ears, nose normal Eyes: Conjunctivae/corneas clear. No icterus. No ptosis. Neck: Supple, no meningeal signs Oral: dentition fair, no thrush Cardiovascular: S1, S2 normal. Respiratory: Good air entry, clear to auscultation bilaterally GI: Soft, non-tender; bowel sounds normal. No peritoneal signs. Musculoskeletal: No pedal edema, no cyanosis. Skin: No rash or abscess Hem/Lymphatic: No palpable cervical or supraclavicular nodes. Psych: Mood ok. Affect normal Neurological: Awake, alert, oriented. No gross abnormality - Constitutional Vitals: Vital Signs Temp Pulse Resp BP Pulse Ox 97.9 F 75 18 111/78 100 01/02/21 05:08 01/02/21 05:08 01/02/21 05:08 01/02/21 05:08 01/02/21 05:08 Temperature -Last 24 Hours Temperature 97.9 F Temperature 98.2 F Temperature 98.2 F Temperature 98.1 F - Labs CBC & Chem 7: 01/02/21 05:24 01/02/21 05:24 Labs: Abnormal lab results 01/02/21 01/02/21 Range/Units 05:24 05:24 WBC 4.4 L (4.5-11.0) K/mm3 MCV 95 H (84-94) fl MCH 34 H (28-32) pg MCHC 36 H (32-34) % [place] % (Auto) 10.5 H (0.0-7.3) % Lymph # (Auto) 0.9 L (1.2-5.4) K/mm3 Sodium 135 L (137-145) mmol/L Potassium 3.4 L D (3.6-5.0) mmol/L Albumin 3.6 L (3.9-5) g/dL
--- NOTE | 2021-01-02 18:30 | Progress Note ---
Assessment and Plan Assessment and Plan -- Cryptococcal meningitis Current Visit: Yes Status: Acute Plan to address problem: CSF Crpyto A:16. Serum cryptococcus antigen: 1:128 Continue amphotericin and flucytosine ID following -- Focal seizures Current Visit: Yes Status: Acute Plan to address problem: Started on Keppra IV Seizure precautions, do not drive Rt parietal lesion, treatment per neurology -- HIV positive Current Visit: Yes Status: Acute Plan to address problem: HIV viral load: 39 CD4 count: 158 (23%) Hold Biktarvy per ID Supportive care -- Right parietal lobe lesion Current Visit: Yes Status: Acute Plan to address problem: Acute, management per neurology --HIV 2 (human immunodeficiency virus type 2) Current Visit: Yes Status: Acute Plan to address problem: On retrovirals CD4 count oredered -- DVT prophylaxis Current Visit: Yes Status: Acute Plan to address problem: On Heparin Closely monitor the patient and adjust management as needed ID evaluation recommendations noted and appreciated Brief history 35 y M PMHx HIV, Cryptococcus meningitis presents with persistent headaches, work-up is consistent with cryptococcal meningitis Started on amphotericin B and flucytosine, also patient is HIV on antiretrovirals, medications held due to cryptococcus meningitis ID following . Subjective Date of service: 01/02/21 Principal diagnosis: Crytococcal meningitis Interval history: 35-year-old man past medical history HIV presented to the hospital with possible seizure. He was noted to have jerking movements of his head. He has been seen in the hospital in the past for headaches a couple weeks prior. He had been having persistent headache since that time. Lumbar puncture was performed which showed 33 white cells with 78% lymphocytes. 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 This was diagnosed in [place] and was hos pitalized for a month in December 2019. He is on Biktarvy. He had previously been on daily fluconazole as maintenance therapy for the cryptococcus, however when he transferred care from [place] he stopped his fluconazole at that time. Also complaints of LLE weakness.Walking with a limp. Afebrile since admission with a normal white count. 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 12/30/2020; follow MRI, tests and reports, adjust management as needed ID, neurology evaluation recommendations noted and appreciated 12/31/2020; patient is on amphotericin and flucytosine per ID Antiretrovirals held at this point 01/01/2021; patient feels better on amphotericin and flucytosine Closely monitor patient clinically and follow ID recommendations 01/02 On Amphotericin and Flucytosine Objective - Constitutional Vitals: Vital Signs - 12hr 01/02/21 01/02/21 01/02/21 12:52 16:16 16:22 Temperature 97.6 F 98.7 F 98.5 F Pulse Rate 69 69 107 H Respiratory 19 19 20 Rate Blood Pressure 98/63 114/67 162/110 O2 Sat by Pulse 97 99 100 Oximetry General appearance: Present: no acute distress, well-nourished - EENT Eyes: PERRL, EOM intact ENT: hearing intact, clear oral mucosa Ears: bilateral: normal - Neck Neck: supple, normal ROM - Respiratory Respiratory effort: normal Respiratory: bilateral: CTA - Breasts Breasts: normal - Cardiovascular Heart rate: 78 Rhythm: regular Heart Sounds: Present: S1 & S2. Absent: gallop, rub Extremities: pulses intact, No edema, normal color, Full ROM - Gastrointestinal General gastrointestinal: Present: soft, non-tender, non-distended, normal bowel sounds - Genitourinary Male genitourinary: normal - Integumentary Integumentary: clear, warm, dry - Musculoskeletal Musculoskeletal: 1, strength equal bilaterally - Neurologic Neurologic: moves all extremities - Psychiatric Psychiatric: memory intact, appropriate mood/affect, intact judgment & insight - Labs CBC & Chem 7: 01/02/21 05:24 01/02/21 05:24 Labs: Abnormal lab results 01/02/21 01/02/21 Range/Units 05:24 05:24 WBC 4.4 L (4.5-11.0) K/mm3 MCV 95 H (84-94) fl MCH 34 H (28-32) pg MCHC 36 H (32-34) % [place] % (Auto) 10.5 H (0.0-7.3) % Lymph # (Auto) 0.9 L (1.2-5.4) K/mm3 Sodium 135 L (137-145) mmol/L Potassium 3.4 L D (3.6-5.0) mmol/L Albumin 3.6 L (3.9-5) g/dL HEART Score - HEART Score Troponin: Troponin T < 0.010 ng/mL (0.00-0.029) 12/28/20 09:33
[2021-01-03] MEDS: FLUCYTOSINE 500 MG CAP PO SCH ×3 (06:21→18:16)
[2021-01-03 09:47] LABS: Alanine Aminotransferase 11 units/L (7-56)
[2021-01-03] MEDS: WATER IV SCH (09:56)
[2021-01-03] MEDS: DEXTROSE 5% IV SCH (09:56)
[2021-01-03] MEDS: AMPHOTERICIN B LIPOSOME IV SCH (09:56)
[2021-01-03 09:58] LABS: Bilirubin,Direct < 0.2 mg/dL (0-0.2)
[2021-01-03] MEDS: levETIRAcetam 500 MG TAB PO SCH ×2 (09:58→22:44)
[2021-01-03] MEDS ORDERED: DEXTROSE 5% IN WATER (50 ML) 50 ML IV PRN (10:00)
[2021-01-03] MEDS: DEXTROSE 5% IN WATER 100 ML IV SCH (11:56)
--- NOTE | 2021-01-03 15:59 | Progress Note ---
Assessment and Plan Assessment and Plan -- Cryptococcal meningitis Current Visit: Yes Status: Acute Plan to address problem: CSF Crpyto A:16. Serum cryptococcus antigen: 1:128 Continue amphotericin and flucytosine ID following -- Focal seizures Current Visit: Yes Status: Acute Plan to address problem: Started on Keppra IV Seizure precautions, do not drive Rt parietal lesion, treatment per neurology -- HIV positive Current Visit: Yes Status: Acute Plan to address problem: HIV viral load: 39 CD4 count: 158 (23%) Hold Biktarvy per ID Supportive care -- Right parietal lobe lesion Current Visit: Yes Status: Acute Plan to address problem: Acute, management per neurology --HIV 2 (human immunodeficiency virus type 2) Current Visit: Yes Status: Acute Plan to address problem: On retrovirals CD4 count oredered -- DVT prophylaxis Current Visit: Yes Status: Acute Plan to address problem: On Heparin Closely monitor the patient and adjust management as needed ID evaluation recommendations noted and appreciated Brief history 35 y M PMHx HIV, Cryptococcus meningitis presents with persistent headaches, work-up is consistent with cryptococcal meningitis Started on amphotericin B and flucytosine, also patient is HIV on antiretrovirals, medications held due to cryptococcus meningitis ID following . Subjective Date of service: 01/03/21 Principal diagnosis: Crytococcal meningitis Interval history: 35-year-old man past medical history HIV presented to the hospital with possible seizure. He was noted to have jerking movements of his head. He has been seen in the hospital in the past for headaches a couple weeks prior. He had been having persistent headache since that time. Lumbar puncture was performed which showed 33 white cells with 78% lymphocytes. 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 This was diagnosed in [place] and was hos pitalized for a month in December 2019. He is on Biktarvy. He had previously been on daily fluconazole as maintenance therapy for the cryptococcus, however when he transferred care from [place] he stopped his fluconazole at that time. Also complaints of LLE weakness.Walking with a limp. Afebrile since admission with a normal white count. 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 Day #2 12/29/20 Sx better LLE weakness persists ID consult appreciated 12/30/2020; follow MRI, tests and reports, adjust management as needed ID, neurology evaluation recommendations noted and appreciated 12/31/2020; patient is on amphotericin and flucytosine per ID Antiretrovirals held at this point 01/01/2021; patient feels better on amphotericin and flucytosine Closely monitor patient clinically and follow ID recommendations 01/02 patient feels better on amphotericin and flucytosine Closely monitor patient clinically and follow ID recommendations 01/03 patient feels better on amphotericin and flucytosine Closely monitor patient clinically and follow ID recommendations Objective - Constitutional Vitals: Vital Signs - 12hr 01/03/21 01/03/21 05:52 11:51 Temperature 98.0 F 98.2 F Pulse Rate 75 73 Respiratory 18 18 Rate Blood Pressure 98/50 117/74 O2 Sat by Pulse 99 99 Oximetry General appearance: Present: no acute distress, well-nourished - EENT Eyes: PERRL, EOM intact ENT: hearing intact, clear oral mucosa Ears: bilateral: normal - Neck Neck: supple, normal ROM - Respiratory Respiratory effort: normal Respiratory: bilateral: CTA - Breasts Breasts: normal - Cardiovascular Heart rate: 78 Rhythm: regular Heart Sounds: Present: S1 & S2. Absent: gallop, rub Extremities: pulses intact, No edema, normal color, Full ROM - Gastrointestinal General gastrointestinal: Present: soft, non-tender, non-distended, normal bowel sounds - Genitourinary Male genitourinary: normal - Integumentary Integumentary: clear, warm, dry - Musculoskeletal Musculoskeletal: 1, strength equal bilaterally - Neurologic Neurologic: moves all extremities - Psychiatric Psychiatric: memory intact, appropriate mood/affect, intact judgment & insight - Labs CBC & Chem 7: 01/02/21 05:24 01/02/21 05:24 HEART Score - HEART Score Troponin: Troponin T < 0.010 ng/mL (0.00-0.029) 12/28/20 09:33
[2021-01-03] MEDS: ACETAMINOPHEN 325 MG TAB PO PRN (22:44)
[2021-01-04] MEDS: FLUCYTOSINE 500 MG CAP PO SCH ×5 (02:08→23:01)
[2021-01-04 08:30] LABS: Alanine Aminotransferase 10 units/L (7-56); Albumin 3.5 g/dL (3.9-5); Bilirubin,Direct < 0.2 mg/dL (0-0.2)
[2021-01-04] MEDS: levETIRAcetam 500 MG TAB PO SCH ×2 (10:07→22:58)
[2021-01-04] MEDS: AMPHOTERICIN B LIPOSOME IV SCH (10:08)
[2021-01-04] MEDS: DEXTROSE 5% IV SCH (10:08)
[2021-01-04] MEDS: WATER IV SCH (10:08)
[2021-01-04] MEDS: DEXTROSE 5% IN WATER 100 ML IV SCH (12:52)
[2021-01-05] MEDS: FLUCYTOSINE 500 MG CAP PO SCH ×3 (05:15→17:23)
[2021-01-05 09:41] LABS: Alanine Aminotransferase 10 units/L (7-56); Albumin 3.7 g/dL (3.9-5)
[2021-01-05 09:44] LABS: Bilirubin,Direct < 0.2 mg/dL (0-0.2)
[2021-01-05] MEDS: levETIRAcetam 500 MG TAB PO SCH ×2 (10:14→21:23)
[2021-01-05] MEDS: WATER IV SCH (10:14)
[2021-01-05] MEDS: DEXTROSE 5% IV SCH (10:14)
[2021-01-05] MEDS: AMPHOTERICIN B LIPOSOME IV SCH (10:14)
[2021-01-05] MEDS: DEXTROSE 5% IN WATER 100 ML IV SCH (12:20)
--- NOTE | 2021-01-05 14:26 | Progress Note ---
Assessment and Plan Cultures: CSF Crpyto A:16. 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 His maintenance therapy was stopped 3 months ago, or after approximately 9 months total. It is unclear why at this point. Unclear if he had a negative Crpyto serum antigen. His current titre is 1:16, it is unclear as to what he was at the beginning, serum titre elevated at 1:128 as well. Likely secondary to premature stopping of his outpatient fluconazole. #HIV: reports compliance with the Biktarvy. Immune status and HIV control actually pretty good, a bit surprising he developed symptoms again. #Headaches Recs: -Follow-up CSF fungal culture. Confirmed with lab it was sent. -Given presence of vasogenic edema on brain MRI will start Induction therapy for cryptococcal meningitis. -Pharmacy was able to obtain AmBisome 4 mg/kg every 24 hours. Continue flucytosine 25 mg/kg every 6 hours. Needs 2 weeks induction therapy -Will hold on Biktarvy for now pending induction therapy Thank you for the consult, we will continue to follow. Nichelle Mayo MD [facility] O: [phone] F: [phone] Subjective Date of service: 01/05/21 Principal diagnosis: Crytococcal meningitis Interval history: Afebrile, white count 4.4. Objective - Exam Narrative Exam: Physical Exam: Constitutional: Alert, cooperative. No acute distress Head, Ears, Nose: Normocephalic, atraumatic. Eyes: Conjunctivae/corneas clear. No icterus. No ptosis. Neck: Supple, no meningeal signs Oral: dentition fair, no thrush Cardiovascular: S1, S2 normal. Respiratory: Good air entry, clear to auscultation bilaterally GI: Soft, non-tender; bowel sounds normal. No peritoneal signs. Musculoskeletal: No pedal edema, no cyanosis. Skin: No rash or abscess Hem/Lymphatic: No palpable cervical or supraclavicular nodes. Psych: Mood ok. Affect normal Neurological: Awake, alert, oriented. No gross abnormality - Constitutional Vitals: Vital Signs Temp Pulse Resp BP Pulse Ox 98.8 F 74 19 121/72 100 01/05/21 13:01 01/05/21 13:01 01/05/21 13:01 01/05/21 13:01 01/05/21 13:01 Temperature -Last 24 Hours Temperature 98.8 F Temperature 98.6 F Temperature 99.3 F Temperature 98.7 F - Labs CBC & Chem 7: 01/02/21 05:24 01/02/21 05:24 Labs: Abnormal lab results 01/05/21 Range/Units 08:51 Albumin 3.7 L (3.9-5) g/dL
[2021-01-06] MEDS: FLUCYTOSINE 500 MG CAP PO SCH ×6 (00:03→19:10)
[2021-01-06 05:24] LABS: Alanine Aminotransferase 11 units/L (7-56); Albumin 3.9 g/dL (3.9-5)
[2021-01-06 05:28] LABS: Bilirubin,Direct < 0.2 mg/dL (0-0.2)
--- NOTE | 2021-01-06 07:56 | Progress Note ---
Assessment and Plan Assessment and Plan -- Cryptococcal meningitis Current Visit: Yes Status: Acute Plan to address problem: CSF Crpyto A:16. Serum cryptococcus antigen: 1:128 Continue amphotericin and flucytosine ID following -- Focal seizures Current Visit: Yes Status: Acute Plan to address problem: Started on Keppra IV Seizure precautions, do not drive Rt parietal lesion, treatment per neurology -- HIV positive Current Visit: Yes Status: Acute Plan to address problem: HIV viral load: 39 CD4 count: 158 (23%) Hold Biktarvy per ID Supportive care -- Right parietal lobe lesion Current Visit: Yes Status: Acute Plan to address problem: Acute, management per neurology --HIV 2 (human immunodeficiency virus type 2) Current Visit: Yes Status: Acute Plan to address problem: On retrovirals CD4 count oredered -- DVT prophylaxis Current Visit: Yes Status: Acute Plan to address problem: On Heparin Closely monitor the patient and adjust management as needed ID evaluation recommendations noted and appreciated Brief history 35 y M PMHx HIV, Cryptococcus meningitis presents with persistent headaches, work-up is consistent with cryptococcal meningitis Started on amphotericin B and flucytosine, also patient is HIV on antiretrovirals, medications held due to cryptococcus meningitis ID following . Subjective Date of service: 01/05/21 Principal diagnosis: Crytococcal meningitis Interval history: 35-year-old man past medical history HIV presented to the hospital with possible seizure. He was noted to have jerking movements of his head. He has been seen in the hospital in the past for headaches a couple weeks prior. He had been having persistent headache since that time. Lumbar puncture was performed which showed 33 white cells with 78% lymphocytes. 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 This was diagnosed in [place] and was hos pitalized for a month in December 2019. He is on Biktarvy. He had previously been on daily fluconazole as maintenance therapy for the cryptococcus, however when he transferred care from [place] he stopped his fluconazole at that time. Also complaints of LLE weakness.Walking with a limp. Afebrile since admission with a normal white count. 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 Day #2 12/29/20 Sx better LLE weakness persists ID consult appreciated 12/30/2020; follow MRI, tests and reports, adjust management as needed ID, neurology evaluation recommendations noted and appreciated 12/31/2020; patient is on amphotericin and flucytosine per ID Antiretrovirals held at this point 01/01/2021; patient feels better on amphotericin and flucytosine Closely monitor patient clinically and follow ID recommendations 01/02 Cont Amphotericin and Flucytosine 01/03 Cont Amphotericin and Flucytosine 01/04 Cont Amphotericin and Flucytosine 01/05 Cont Amphotericin and Flucytosine Objective - Constitutional Vitals: Vital Signs - 12hr 01/05/21 01/06/21 01/06/21 22:00 00:35 07:35 Temperature 98.7 F 97.5 F L Pulse Rate 79 82 Respiratory 17 20 20 Rate Respiratory 17 Rate [Neck] Blood Pressure 107/60 102/61 O2 Sat by Pulse 99 99 100 Oximetry General appearance: Present: no acute distress, well-nourished - EENT Eyes: PERRL, EOM intact ENT: hearing intact, clear oral mucosa Ears: bilateral: normal - Neck Neck: supple, normal ROM - Respiratory Respiratory effort: normal Respiratory: bilateral: CTA - Breasts Breasts: normal - Cardiovascular Heart rate: 78 Rhythm: regular Heart Sounds: Present: S1 & S2. Absent: gallop, rub Extremities: pulses intact, No edema, normal color, Full ROM - Gastrointestinal General gastrointestinal: Present: soft, non-tender, non-distended, normal bowel sounds - Genitourinary Male genitourinary: normal - Integumentary Integumentary: clear, warm, dry - Musculoskeletal Musculoskeletal: 1, strength equal bilaterally - Neurologic Neurologic: moves all extremities - Psychiatric Psychiatric: memory intact, appropriate mood/affect, intact judgment & insight - Labs CBC & Chem 7: 01/02/21 05:24 01/02/21 05:24 Labs: Abnormal lab results 01/05/21 Range/Units 08:51 Albumin 3.7 L (3.9-5) g/dL HEART Score - HEART Score Troponin: Troponin T < 0.010 ng/mL (0.00-0.029) 12/28/20 09:33
[2021-01-06] MEDS: levETIRAcetam 500 MG TAB PO SCH ×2 (10:48→22:15)
--- NOTE | 2021-01-06 13:47 | Progress Note ---
Assessment and Plan Cultures: CSF Crpyto A:16. 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 His maintenance therapy was stopped 3 months ago, or after approximately 9 months total. It is unclear why at this point. Unclear if he had a negative Crpyto serum antigen. His current titre is 1:16, it is unclear as to what he was at the beginning, serum titre elevated at 1:128 as well. Likely secondary to premature stopping of his outpatient fluconazole. #HIV: reports compliance with the Biktarvy. Immune status and HIV control actually pretty good, a bit surprising he developed symptoms again. #Headaches Recs: -Follow-up CSF fungal culture. Confirmed with lab it was sent. -Given presence of vasogenic edema on brain MRI will start Induction therapy for cryptococcal meningitis. -Pharmacy was able to obtain AmBisome 4 mg/kg every 24 hours. Continue flucytosine 25 mg/kg every 6 hours. Needs 2 weeks induction therapy -Monitor electrolytes and kidney function while on Ambisome. -Will plan to DC on PO fluconazole after induction therapy. -Will hold on Biktarvy for now pending induction therapy Thank you for the consult, we will continue to follow. Nichelle Mayo MD [facility] O: [phone] F: [phone] Subjective Date of service: 01/06/21 Principal diagnosis: Crytococcal meningitis Interval history: Afebrile, no new issues. Objective - Exam Narrative Exam: Physical Exam: Constitutional: Alert, cooperative. No acute distress Head, Ears, Nose: Normocephalic, atraumatic. Eyes: Conjunctivae/corneas clear. No icterus. No ptosis. Neck: Supple, no meningeal signs Oral: dentition fair, no thrush Cardiovascular: S1, S2 normal. Respiratory: Good air entry, clear to auscultation bilaterally GI: Soft, non-tender; bowel sounds normal. No peritoneal signs. Musculoskeletal: No pedal edema, no cyanosis. Skin: No rash or abscess Hem/Lymphatic: No palpable cervical or supraclavicular nodes. Psych: Mood ok. Affect normal Neurological: Awake, alert, oriented. No gross abnormality - Constitutional Vitals: Vital Signs Temp Pulse Resp BP Pulse Ox 98.5 F 64 18 117/68 100 01/06/21 11:22 01/06/21 11:22 01/06/21 11:22 01/06/21 11:22 01/06/21 11:22 Temperature -Last 24 Hours Temperature 98.5 F Temperature 97.5 F Temperature 98.7 F Temperature 98.7 F - Labs CBC & Chem 7: 01/02/21 05:24 01/02/21 05:24
[2021-01-06] MEDS: DEXTROSE 5% IN WATER 100 ML IV SCH (17:50)
[2021-01-06] MEDS: AMPHOTERICIN B LIPOSOME IV SCH (17:50)
[2021-01-06] MEDS: DEXTROSE 5% IV SCH (17:50)
[2021-01-06] MEDS: WATER IV SCH (17:50)
--- NOTE | 2021-01-06 19:01 | Progress Note ---
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 Serum cryptococcus antigen: 1:128 Continue amphotericin and flucytosine ID following -- Focal seizures Current Visit: Yes Status: Acute Plan to address problem: Started on Keppra IV Seizure precautions, do not drive Rt parietal lesion, treatment per neurology -- HIV ; Current Visit: Yes Status: Acute Plan to address problem: HIV viral load: 39 CD4 count: 158 (23%) Patient claims compliance with his medications Will hold Biktarvy per ID Continue supportive care -- Right parietal lobe lesion Current Visit: Yes Status: Acute Plan to address problem: Acute, management per neurology -- DVT prophylaxis Current Visit: Yes Status: Acute Plan to address problem: On Heparin Closely monitor the patient and adjust management as needed ID evaluation recommendations noted and appreciated PT evaluation and recommendations for unsteady gait and meningitis Brief history: 35-year-old man past medical history HIV presented to the hospital with possible seizure. He was noted to have jerking movements of his head. He has been seen in the hospital in the past for headaches a couple weeks prior. He had been having persistent headache since that time. Lumbar puncture was performed which showed 33 white cells with 78% lymphocytes. 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 This was diagnosed in [place] and was hospitalized for a month in December 2019. He is on Biktarvy. He had previously been on daily fluconazole as maintenance therapy for the cryptococcus, however when he transferred care from [place] he stopped his fluconazole at that time. Also complaints of LLE weakness.Walking with a limp. Afebrile since admission with a normal white count. 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 12/29/20 Sx better LLE weakness persists ID consult appreciated 12/30/2020; follow MRI, tests and reports, adjust management as needed ID, neurology evaluation recommendations noted and appreciated 12/31/2020; patient is on amphotericin and flucytosine per ID Antiretrovirals held at this point 01/01/2021; patient feels better on amphotericin and flucytosine Closely monitor patient clinically and follow ID recommendations 01/02;Cont Amphotericin and Flucytosine 01/03;Cont Amphotericin and Flucytosine 01/04;Cont Amphotericin and Flucytosine 01/05;Cont Amphotericin and Flucytosine 01/06; PT requested for DC needs, continue amphotericin and flucytosine History Interval history: I have seen and examined the patient at the bedside Patient's chart and medications reviewed patient feels better Receiving flucytosine and amphotericin B, ID following Vital signs noted Hospitalist Physical - Constitutional Vitals: Temp Pulse Resp BP Pulse Ox 97.6 F 91 H 18 144/88 100 01/06/21 17:04 01/06/21 17:04 01/06/21 17:04 01/06/21 17:04 01/06/21 17:04 General appearance: Present: no acute distress, well-nourished - EENT Eyes: Present: PERRL, EOM intact - Neck Neck: Present: supple, normal ROM - Respiratory Respiratory effort: normal Respiratory: bilateral: diminished, negative: rales, rhonchi, wheezing - Cardiovascular Rhythm: regular Heart Sounds: Present: S1 & S2 - Extremities Extremities: no ischemia, No edema - Abdominal General gastrointestinal: soft, non-tender, non-distended, normal bowel sounds - Integumentary Integumentary: Present: clear, warm - Psychiatric Psychiatric: appropriate mood/affect, cooperative - Neurologic Neurologic: CNII-XII intact, moves all extremities HEART Score - HEART Score Troponin: Troponin T < 0.010 ng/mL (0.00-0.029) 12/28/20 09:33 Results - Labs CBC & Chem 7: 01/02/21 05:24 01/02/21 05:24 Labs: Laboratory Last Values WBC 4.4 K/mm3 (4.5-11.0) L 01/02/21 05:24 RBC 3.75 M/mm3 (3.65-5.03) 01/02/21 05:24 Hgb 12.9 gm/dl (11.8-15.2) 01/02/21 05:24 Hct 35.6 % (35.5-45.6) 01/02/21 05:24 MCV 95 fl (84-94) H 01/02/21 05:24 MCH 34 pg (28-32) H 01/02/21 05:24 MCHC 36 % (32-34) H 01/02/21 05:24 RDW 13.7 % (13.2-15.2) 01/02/21 05:24 Plt Count 250 K/mm3 (140-440) 01/02/21 05:24 Lymph % (Auto) 20.7 % (13.4-35.0) 01/02/21 05:24 [place] % (Auto) 10.5 % (0.0-7.3) H 01/02/21 05:24 Eos % (Auto) 2.4 % (0.0-4.3) 01/02/21 05:24 Baso % (Auto) 0.4 % (0.0-1.8) 01/02/21 05:24 Lymph # (Auto) 0.9 K/mm3 (1.2-5.4) L 01/02/21 05:24 [place] # (Auto) 0.5 K/mm3 (0.0-0.8) 01/02/21 05:24 Eos # (Auto) 0.1 K/mm3 (0.0-0.4) 01/02/21 05:24 Baso # (Auto) 0.0 K/mm3 (0.0-0.1) 01/02/21 05:24 Seg Neutrophils % 66.0 % (40.0-70.0) 01/02/21 05:24 Seg Neutrophils # 2.9 K/mm3 (1.8-7.7) 01/02/21 05:24 Abs Lymphs (Manual) 675 cells/uL (850-3900) L 12/29/20 16:01 PT 14.9 Sec. (12.2-14.9) 12/28/20 09:33 INR 1.17 (0.87-1.13) H 12/28/20 09:33 APTT 40.0 Sec. (24.2-36.6) H 12/28/20 09:33 Thrombin Time 15.2 Sec. (15.1-19.6) 12/28/20 09:33 Sodium 135 mmol/L (137-145) L 01/02/21 05:24 Potassium 3.4 mmol/L (3.6-5.0) L D 01/02/21 05:24 Chloride 101.5 mmol/L (98-107) 01/02/21 05:24 Carbon Dioxide 23 mmol/L (22-30) 01/02/21 05:24 Anion Gap 14 mmol/L 01/02/21 05:24 BUN 16 mg/dL (9-20) 01/02/21 05:24 Creatinine 1.2 mg/dL (0.8-1.3) 01/02/21 05:24 Estimated GFR > 60 ml/min 01/02/21 05:24 BUN/Creatinine Ratio 13 % 01/02/21 05:24 Glucose 99 mg/dL (75-100) 01/02/21 05:24 POC Glucose 103 mg/dL (70-105) 12/31/20 16:31 Calcium 9.4 mg/dL (8.4-10.2) 01/02/21 05:24 Magnesium 2.00 mg/dL (1.7-2.3) 12/28/20 09:33 Total Bilirubin 0.40 mg/dL (0.1-1.2) 01/06/21 04:13 Direct Bilirubin < 0.2 mg/dL (0-0.2) 01/06/21 04:13 Indirect Bilirubin 0.2 mg/dL 01/06/21 04:13 AST 9 units/L (5-40) 01/06/21 04:13 ALT 11 units/L (7-56) 01/06/21 04:13 Alkaline Phosphatase 74 units/L (35-129) 01/06/21 04:13 Ammonia 15.0 umol/L (25-60) L 12/28/20 09:33 Total Creatine Kinase 126 units/L (55-170) 12/28/20 09:33 CK-MB (CK-2) < 1.0 ng/mL (0.0-4.0) 12/28/20 09:33 CK-MB (CK-2) Rel Index 0.7 (0-4) 12/28/20 09:33 Troponin T < 0.010 ng/mL (0.00-0.029) 12/28/20 09:33 Total Protein 7.5 g/dL (6.3-8.2) 01/06/21 04:13 Albumin 3.9 g/dL (3.9-5) 01/06/21 04:13 Albumin/Globulin Ratio 1.1 % 01/06/21 04:13 CSF Appearance Clear 12/28/20 12:48 CSF Color Colorless 12/28/20 12:48 CSF WBC 33.85 /mm3 (1-10) 12/28/20 12:48 CSF RBC 3.3 /mm3 (0-0) 12/28/20 12:48 CSF Seg Neutrophils 3.0 % (0-6) 12/28/20 12:48 CSF Lymphocytes % 78.0 % (40-80) 12/28/20 12:48 CSF Reactive Lymphs 0 % 12/28/20 12:48 CSF Monocytes % 18.0 % (15-45) 12/28/20 12:48 CSF Eosinophils % 1.0 % 12/28/20 12:48 CSF Basophils 0 % 12/28/20 12:48 CSF Pathologist Review C 12/28/20 12:48 CSF Glucose 41 mg/dL 12/28/20 12:48 CSF Total Protein 121 mg/dL 12/28/20 12:48 CSF VDRL Nonreactive (Nonreactive) 12/28/20 12:48 Lymph Enumerat CD4/CD8 0.68 (0.86-5.00) L 12/29/20 16:01 % CD3 Cells 59 % (57-85) 12/29/20 16:01 Absolute CD3 Count 401 cells/uL (840-3060) L 12/29/20 16:01 % CD4 Cells 23 % (30-61) L 12/29/20 16:01 Absolute CD4 Count 158 cells/uL (490-1740) L 12/29/20 16:01 % CD8 Cells 34 % (12-42) 12/29/20 16:01 Absolute CD8 Count 232 cells/uL (180-1170) 12/29/20 16:01 % CD19 Cells 37 % (6-29) H 12/29/20 16:01 Absolute CD19 Count 250 cells/uL (110-660) 12/29/20 16:01 HIV-1 RNA PCR copies/ml 39 Copies/mL H 12/29/20 16:01 HIV-1 RNA (PCR) log 1.59 Log cps/mL H 12/29/20 16:01 Daniel/IV: Voiding Method Toilet Active Medications - Current Medications Current Medications: Generic Name Dose Route Start Last Admin Trade Name Freq PRN Reason Stop Dose Admin Acetaminophen 650 mg 12/29/20 02:08 01/03/21 22:44 Acetaminophen 325 Mg Tab PO 650 mg Q4H PRN Administration Pain,Mild (1-3),SHEARER,Fever>100.5 Flucytosine 2,000 mg 12/30/20 18:00 01/06/21 14:00 Flucytosine 500 Mg Cap PO 01/13/21 12:01 2,000 mg Q6HR BAM Administration Dextrose 100 mls @ 0 mls/hr 01/02/21 11:00 01/06/21 17:50 D5w IV 20 mls/hr Q24HR BAM Administration Amphotericin B 300 mg/ 250 mls @ 125 mls/hr 01/06/21 18:00 01/06/21 17:50 Dextrose IV 01/13/21 11:59 125 mls/hr Q24HR BAM Administration Levetiracetam 750 mg 12/31/20 22:00 01/06/21 10:48 Levetiracetam 500 Mg Tab PO 750 mg BID BAM Administration Nutrition/Malnutrition Assess - Dietary Evaluation Nutrition/Malnutrition Findings: Nutrition Notes Start: 01/05/21 15:0 2 Freq: Status: Active Protocol: Document 01/05/21 15:02 (Rec: 01/05/21 15:06 [email or web address]) Nutrition Notes Need for Assessment generated from: LOS Initial or Follow up Brief Note Other Pertinent Diagnosis HIV, meningitis, right parietal lobe lesion Current Diet Consistent CHO Labs/Tests BG 99 Subjective/Other Information Screen for LOS. Pt reports eating 100% of meals. Pt states he does not have DM and would like sweet tea. Nutrition Intervention Change Diet Order: Regular Revisit per MD consult or patient Sign Off request:
[2021-01-07] MEDS: FLUCYTOSINE 500 MG CAP PO SCH ×4 (00:47→18:55)
[2021-01-07] MEDS: AMPHOTERICIN B LIPOSOME IV SCH (11:05)
[2021-01-07] MEDS: WATER IV SCH (11:05)
[2021-01-07] MEDS: DEXTROSE 5% IV SCH (11:05)
[2021-01-07] MEDS: levETIRAcetam 500 MG TAB PO SCH ×2 (11:13→21:18)
[2021-01-07] MEDS: DEXTROSE 5% IN WATER 100 ML IV SCH (14:09)
--- NOTE | 2021-01-07 14:51 | Progress Note ---
Assessment and Plan Cultures: CSF Crpyto A:16. 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 His maintenance therapy was stopped 3 months ago, or after approximately 9 months total. It is unclear why at this point. Unclear if he had a negative Crpyto serum antigen. His current titre is 1:16, it is unclear as to what he was at the beginning, serum titre elevated at 1:128 as well. Likely secondary to premature stopping of his outpatient fluconazole. #HIV: reports compliance with the Biktarvy. Immune status and HIV control actually pretty good, a bit surprising he developed symptoms again. #Headaches Recs: -Follow-up CSF fungal culture. Confirmed with lab it was sent. -Given presence of vasogenic edema on brain MRI will start Induction therapy for cryptococcal meningitis. -Pharmacy was able to obtain AmBisome 4 mg/kg every 24 hours. Continue flucytosine 25 mg/kg every 6 hours. Needs 2 weeks induction therapy -Following completion of induction therapy recommend 8 weks of consolidation therapy with fluconazole 400mg q24h -Following completion of consolidation therapy recommend maintenance therapy for 1 year with fluconazole 200mg daily. -He can resume follow up with his outpatient HIV provider. -Monitor electrolytes and kidney function while on Ambisome. -Resume Biktarvy on discharge Thank you for the consult, we will continue to follow. Nichelle Mayo MD [facility] ([facility] O: [phone] F: [phone] Subjective Date of service: 01/07/21 Principal diagnosis: Crytococcal meningitis Interval history: Afebrile, no acute change. Objective - Exam Narrative Exam: Physical Exam: Constitutional: Alert, cooperative. No acute distress Head, Ears, Nose: Normocephalic, atraumatic. Eyes: Conjunctivae/corneas clear. No icterus. No ptosis. Neck: Supple, no meningeal signs Oral: dentition fair, no thrush Cardiovascular: S1, S2 normal. Respiratory: Good air entry, clear to auscultation bilaterally GI: Soft, non-tender; bowel sounds normal. No peritoneal signs. Musculoskeletal: No pedal edema, no cyanosis. Skin: No rash or abscess Hem/Lymphatic: No palpable cervical or supraclavicular nodes. Psych: Mood ok. Affect normal Neurological: Awake, alert, oriented. No gross abnormality - Constitutional Vitals: Vital Signs Temp Pulse Resp BP Pulse Ox 97.6 F 83 20 122/83 100 01/07/21 04:53 01/07/21 04:53 01/07/21 04:53 01/07/21 04:53 01/07/21 04:53 Temperature -Last 24 Hours Temperature 97.6 F Temperature 98.1 F Temperature 97.6 F - Labs CBC & Chem 7: 01/02/21 05:24 01/02/21 05:24
--- NOTE | 2021-01-07 18:58 | Progress Note ---
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 Serum cryptococcus antigen: 1:128 Continue amphotericin and flucytosine ID following -- Focal seizures Current Visit: Yes Status: Acute Plan to address problem: Started on Keppra IV Seizure precautions, do not drive Rt parietal lesion, treatment per neurology -- HIV ; Current Visit: Yes Status: Acute Plan to address problem: HIV viral load: 39 CD4 count: 158 (23%) Patient claims compliance with his medications Will hold Biktarvy per ID Continue supportive care -- Right parietal lobe lesion Current Visit: Yes Status: Acute Plan to address problem: Acute, management per neurology -- DVT prophylaxis Current Visit: Yes Status: Acute Plan to address problem: On Heparin Closely monitor the patient and adjust management as needed ID evaluation recommendations noted and appreciated PT evaluation and recommendations for unsteady gait and meningitis Brief history: 35-year-old man past medical history HIV presented to the hospital with possible seizure. He was noted to have jerking movements of his head. He has been seen in the hospital in the past for headaches a couple weeks prior. He had been having persistent headache since that time. Lumbar puncture was performed which showed 33 white cells with 78% lymphocytes. 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 This was diagnosed in [place] and was hospitalized for a month in December 2019. He is on Biktarvy. He had previously been on daily fluconazole as maintenance therapy for the cryptococcus, however when he transferred care from [place] he stopped his fluconazole at that time. Also complaints of LLE weakness.Walking with a limp. Afebrile since admission with a normal white count. 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 12/29/20 Sx better LLE weakness persists ID consult appreciated 12/30/2020; follow MRI, tests and reports, adjust management as needed ID, neurology evaluation recommendations noted and appreciated 12/31/2020; patient is on amphotericin and flucytosine per ID Antiretrovirals held at this point 01/01/2021; patient feels better on amphotericin and flucytosine Closely monitor patient clinically and follow ID recommendations 01/02;Cont Amphotericin and Flucytosine 01/03;Cont Amphotericin and Flucytosine 01/04;Cont Amphotericin and Flucytosine 01/05;Cont Amphotericin and Flucytosine 01/06; PT requested for DC needs, continue amphotericin and flucytosine 01/07; total 2 weeks of induction therapy with flucytosine ID following amphotericin B History Interval history: I have seen and examined the patient at the bedside Patient's chart and medications reviewed Patient feels better anxious to go home Started induction therapy for cryptococcal meningitis ID recommended total 2 weeks Vital signs noted Hospitalist Physical - Constitutional Vitals: Temp Pulse Resp BP Pulse Ox 98.3 F 106 H 18 137/84 100 01/07/21 17:11 01/07/21 17:11 01/07/21 17:11 01/07/21 17:11 01/07/21 17:11 General appearance: Present: no acute distress, well-nourished - EENT Eyes: Present: PERRL, EOM intact - Neck Neck: Present: supple, normal ROM - Respiratory Respiratory effort: normal Respiratory: bilateral: diminished, negative: rales, rhonchi, wheezing - Cardiovascular Rhythm: regular Heart Sounds: Present: S1 & S2 - Extremities Extremities: no ischemia, No edema - Abdominal General gastrointestinal: soft, non-tender, non-distended, normal bowel sounds - Integumentary Integumentary: Present: clear, warm - Psychiatric Psychiatric: appropriate mood/affect, cooperative - Neurologic Neurologic: CNII-XII intact, moves all extremities HEART Score - HEART Score Troponin: Troponin T < 0.010 ng/mL (0.00-0.029) 12/28/20 09:33 Results - Labs CBC & Chem 7: 01/02/21 05:24 01/02/21 05:24 Labs: Laboratory Last Values WBC 4.4 K/mm3 (4.5-11.0) L 01/02/21 05:24 RBC 3.75 M/mm3 (3.65-5.03) 01/02/21 05:24 Hgb 12.9 gm/dl (11.8-15.2) 01/02/21 05:24 Hct 35.6 % (35.5-45.6) 01/02/21 05:24 MCV 95 fl (84-94) H 01/02/21 05:24 MCH 34 pg (28-32) H 01/02/21 05:24 MCHC 36 % (32-34) H 01/02/21 05:24 RDW 13.7 % (13.2-15.2) 01/02/21 05:24 Plt Count 250 K/mm3 (140-440) 01/02/21 05:24 Lymph % (Auto) 20.7 % (13.4-35.0) 01/02/21 05:24 [place] % (Auto) 10.5 % (0.0-7.3) H 01/02/21 05:24 Eos % (Auto) 2.4 % (0.0-4.3) 01/02/21 05:24 Baso % (Auto) 0.4 % (0.0-1.8) 01/02/21 05:24 Lymph # (Auto) 0.9 K/mm3 (1.2-5.4) L 01/02/21 05:24 [place] # (Auto) 0.5 K/mm3 (0.0-0.8) 01/02/21 05:24 Eos # (Auto) 0.1 K/mm3 (0.0-0.4) 01/02/21 05:24 Baso # (Auto) 0.0 K/mm3 (0.0-0.1) 01/02/21 05:24 Seg Neutrophils % 66.0 % (40.0-70.0) 01/02/21 05:24 Seg Neutrophils # 2.9 K/mm3 (1.8-7.7) 01/02/21 05:24 Abs Lymphs (Manual) 675 cells/uL (850-3900) L 12/29/20 16:01 PT 14.9 Sec. (12.2-14.9) 12/28/20 09:33 INR 1.17 (0.87-1.13) H 12/28/20 09:33 APTT 40.0 Sec. (24.2-36.6) H 12/28/20 09:33 Thrombin Time 15.2 Sec. (15.1-19.6) 12/28/20 09:33 Sodium 135 mmol/L (137-145) L 01/02/21 05:24 Potassium 3.4 mmol/L (3.6-5.0) L D 01/02/21 05:24 Chloride 101.5 mmol/L (98-107) 01/02/21 05:24 Carbon Dioxide 23 mmol/L (22-30) 01/02/21 05:24 Anion Gap 14 mmol/L 01/02/21 05:24 BUN 16 mg/dL (9-20) 01/02/21 05:24 Creatinine 1.2 mg/dL (0.8-1.3) 01/02/21 05:24 Estimated GFR > 60 ml/min 01/02/21 05:24 BUN/Creatinine Ratio 13 % 01/02/21 05:24 Glucose 99 mg/dL (75-100) 01/02/21 05:24 POC Glucose 103 mg/dL (70-105) 12/31/20 16:31 Calcium 9.4 mg/dL (8.4-10.2) 01/02/21 05:24 Magnesium 2.00 mg/dL (1.7-2.3) 12/28/20 09:33 Total Bilirubin 0.40 mg/dL (0.1-1.2) 01/06/21 04:13 Direct Bilirubin < 0.2 mg/dL (0-0.2) 01/06/21 04:13 Indirect Bilirubin 0.2 mg/dL 01/06/21 04:13 AST 9 units/L (5-40) 01/06/21 04:13 ALT 11 units/L (7-56) 01/06/21 04:13 Alkaline Phosphatase 74 units/L (35-129) 01/06/21 04:13 Ammonia 15.0 umol/L (25-60) L 12/28/20 09:33 Total Creatine Kinase 126 units/L (55-170) 12/28/20 09:33 CK-MB (CK-2) < 1.0 ng/mL (0.0-4.0) 12/28/20 09:33 CK-MB (CK-2) Rel Index 0.7 (0-4) 12/28/20 09:33 Troponin T < 0.010 ng/mL (0.00-0.029) 12/28/20 09:33 Total Protein 7.5 g/dL (6.3-8.2) 01/06/21 04:13 Albumin 3.9 g/dL (3.9-5) 01/06/21 04:13 Albumin/Globulin Ratio 1.1 % 01/06/21 04:13 CSF Appearance Clear 12/28/20 12:48 CSF Color Colorless 12/28/20 12:48 CSF WBC 33.85 /mm3 (1-10) 12/28/20 12:48 CSF RBC 3.3 /mm3 (0-0) 12/28/20 12:48 CSF Seg Neutrophils 3.0 % (0-6) 12/28/20 12:48 CSF Lymphocytes % 78.0 % (40-80) 12/28/20 12:48 CSF Reactive Lymphs 0 % 12/28/20 12:48 CSF Monocytes % 18.0 % (15-45) 12/28/20 12:48 CSF Eosinophils % 1.0 % 12/28/20 12:48 CSF Basophils 0 % 12/28/20 12:48 CSF Pathologist Review C 12/28/20 12:48 CSF Glucose 41 mg/dL 12/28/20 12:48 CSF Total Protein 121 mg/dL 12/28/20 12:48 CSF VDRL Nonreactive (Nonreactive) 12/28/20 12:48 Lymph Enumerat CD4/CD8 0.68 (0.86-5.00) L 12/29/20 16:01 % CD3 Cells 59 % (57-85) 12/29/20 16:01 Absolute CD3 Count 401 cells/uL (840-3060) L 12/29/20 16:01 % CD4 Cells 23 % (30-61) L 12/29/20 16:01 Absolute CD4 Count 158 cells/uL (490-1740) L 12/29/20 16:01 % CD8 Cells 34 % (12-42) 12/29/20 16:01 Absolute CD8 Count 232 cells/uL (180-1170) 12/29/20 16:01 % CD19 Cells 37 % (6-29) H 12/29/20 16:01 Absolute CD19 Count 250 cells/uL (110-660) 12/29/20 16:01 HIV-1 RNA PCR copies/ml 39 Copies/mL H 12/29/20 16:01 HIV-1 RNA (PCR) log 1.59 Log cps/mL H 12/29/20 16:01 Daniel/IV: Voiding Method Toilet Active Medications - Current Medications Current Medications: Generic Name Dose Route Start Last Admin Trade Name Freq PRN Reason Stop Dose Admin Acetaminophen 650 mg 12/29/20 02:08 01/03/21 22:44 Acetaminophen 325 Mg Tab PO 650 mg Q4H PRN Administration Pain,Mild (1-3),SHEARER,Fever>100.5 Flucytosine 2,000 mg 12/30/20 18:00 01/07/21 14:08 Flucytosine 500 Mg Cap PO 01/13/21 12:01 Not Given Q6HR BAM Dextrose 100 mls @ 0 mls/hr 01/02/21 11:00 01/07/21 14:09 D5w IV 20 mls/hr Q24HR BAM Administration Amphotericin B 300 mg/ 250 mls @ 125 mls/hr 01/06/21 18:00 01/07/21 11:05 Dextrose IV 01/13/21 11:59 125 mls/hr Q24HR BAM Administration Levetiracetam 750 mg 12/31/20 22:00 01/07/21 11:13 Levetiracetam 500 Mg Tab PO 750 mg BID BAM Administration Nutrition/Malnutrition Assess - Dietary Evaluation Nutrition/Malnutrition Findings: Nutrition Notes Start: 01/05/21 15:02 Freq: Status: Active Protocol: Document 01/05/21 15:02 (Rec: 01/05/21 15:06 [email or web address]) Nutrition Notes Need for Assessment generated from: LOS Initial or Follow up Brief Note Other Pertinent Diagnosis HIV, meningitis, right parietal lobe lesion Current Diet Consistent CHO Labs/Tests BG 99 Subjective/Other Information Screen for LOS. Pt reports eating 100% of meals. Pt states he does not have DM and would like sweet tea. Nutrition Intervention Change Diet Order: Regular Revisit per MD consult or patient Sign Off request:
[2021-01-08] MEDS: FLUCYTOSINE 500 MG CAP PO SCH ×5 (02:17→23:50)
[2021-01-08] MEDS: DEXTROSE 5% IV SCH (12:41)
[2021-01-08] MEDS: AMPHOTERICIN B LIPOSOME IV SCH (12:41)
[2021-01-08] MEDS: WATER IV SCH (12:41)
[2021-01-08] MEDS: levETIRAcetam 500 MG TAB PO SCH ×2 (12:43→22:13)
--- NOTE | 2021-01-08 14:53 | Progress Note ---
Assessment and Plan Cultures: CSF Crpyto A:16. 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 His maintenance therapy was stopped 3 months ago, or after approximately 9 months total. It is unclear why at this point. Unclear if he had a negative Crpyto serum antigen. His current titre is 1:16, it is unclear as to what he was at the beginning, serum titre elevated at 1:128 as well. Likely secondary to premature stopping of his outpatient fluconazole. #HIV: reports compliance with the Biktarvy. Immune status and HIV control actually pretty good, a bit surprising he developed symptoms again. #Headaches Recs: -Follow-up CSF fungal culture. Confirmed with lab it was sent. -Given presence of vasogenic edema on brain MRI will start Induction therapy for cryptococcal meningitis. -Pharmacy was able to obtain AmBisome 4 mg/kg every 24 hours. Continue flucytosine 25 mg/kg every 6 hours. Needs 2 weeks induction therapy -Following completion of induction therapy recommend 8 weks of consolidation therapy with fluconazole 400mg q24h -Following completion of consolidation therapy recommend maintenance therapy for 1 year with fluconazole 200mg daily. -He can resume follow up with his outpatient HIV provider. -Monitor electrolytes and kidney function while on Ambisome. -Resume Biktarvy on discharge Thank you for the consult, we will continue to follow. Nichelle Mayo MD [facility] [place] [facility] O: [phone] F: [phone] Subjective Date of service: 01/08/21 Principal diagnosis: Crytococcal meningitis Interval history: Afebrile, no new issues. Objective - Exam Narrative Exam: Physical Exam: Constitutional: Alert, cooperative. No acute distress Head, Ears, Nose: Normocephalic, atraumatic. Eyes: Conjunctivae/corneas clear. No icterus. No ptosis. Neck: Supple, no meningeal signs Oral: dentition fair, no thrush Cardiovascular: S1, S2 normal. Respiratory: Good air entry, clear to auscultation bilaterally GI: Soft, non-tender; bowel sounds normal. No peritoneal signs. Musculoskeletal: No pedal edema, no cyanosis. Skin: No rash or abscess Hem/Lymphatic: No palpable cervical or supraclavicular nodes. Psych: Mood ok. Affect normal Neurological: Awake, alert, oriented. No gross abnormality - Constitutional Vitals: Vital Signs Temp Pulse Resp BP Pulse Ox 97.5 F L 75 18 113/78 99 01/08/21 05:34 01/08/21 05:34 01/08/21 05:34 01/08/21 05:34 01/08/21 05:34 Temperature -Last 24 Hours Temperature 97.5 F Temperature 98.5 F Temperature 98.3 F - Labs CBC & Chem 7: 01/02/21 05:24 01/02/21 05:24
[2021-01-08] MEDS: DEXTROSE 5% IN WATER 100 ML IV SCH (15:46)
--- NOTE | 2021-01-08 17:49 | Progress Note ---
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 Serum cryptococcus antigen: 1:128 Continue amphotericin and flucytosine ID following -- Focal seizures Current Visit: Yes Status: Acute Plan to address problem: Started on Keppra IV Seizure precautions, do not drive Rt parietal lesion, treatment per neurology -- HIV ; Current Visit: Yes Status: Acute Plan to address problem: HIV viral load: 39 CD4 count: 158 (23%) Patient claims compliance with his medications Will hold Biktarvy per ID Continue supportive care -- Right parietal lobe lesion Current Visit: Yes Status: Acute Plan to address problem: Acute, management per neurology -- DVT prophylaxis Current Visit: Yes Status: Acute Plan to address problem: On Heparin Closely monitor the patient and adjust management as needed ID evaluation recommendations noted and appreciated PT evaluation and recommendations for unsteady gait and meningitis Brief history: 35-year-old man past medical history HIV presented to the hospital with possible seizure. He was noted to have jerking movements of his head. He has been seen in the hospital in the past for headaches a couple weeks prior. He had been having persistent headache since that time. Lumbar puncture was performed which showed 33 white cells with 78% lymphocytes. 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 This was diagnosed in [place] and was hospitalized for a month in December 2019. He is on Biktarvy. He had previously been on daily fluconazole as maintenance therapy for the cryptococcus, however when he transferred care from [place] he stopped his fluconazole at that time. Also complaints of LLE weakness.Walking with a limp. Afebrile since admission with a normal white count. 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 12/29/20 Sx better LLE weakness persists ID consult appreciated 12/30/2020; follow MRI, tests and reports, adjust management as needed ID, neurology evaluation recommendations noted and appreciated 12/31/2020; patient is on amphotericin and flucytosine per ID Antiretrovirals held at this point 01/01/2021; patient feels better on amphotericin and flucytosine Closely monitor patient clinically and follow ID recommendations 01/02;Cont Amphotericin and Flucytosine 01/03;Cont Amphotericin and Flucytosine 01/04;Cont Amphotericin and Flucytosine 01/05;Cont Amphotericin and Flucytosine 01/06; PT requested for DC needs, continue amphotericin and flucytosine 01/07; total 2 weeks of induction therapy with flucytosine ID following amphotericin B 01/08; patient is receiving induction therapy with flucytosine and amphotericin B, ID recommended total 2 weeks Closely monitor, transition to oral after finishing 2 weeks History Interval history: Patient feels better no new complaints Receiving induction therapy for cryptococcal meningitis With IV flucytosine and amphotericin B for total 2 weeks Recommended by ID Patient has no new complaints anxious to go home Vital signs noted Hospitalist Physical - Constitutional Vitals: Temp Pulse Resp BP Pulse Ox 97.5 F L 75 18 113/78 99 01/08/21 05:34 01/08/21 05:34 01/08/21 05:34 01/08/21 05:34 01/08/21 10:00 General appearance: Present: no acute distress, well-nourished - EENT Eyes: Present: PERRL, EOM intact - Neck Neck: Present: supple, normal ROM - Respiratory Respiratory effort: normal Respiratory: bilateral: diminished, negative: rales, rhonchi, wheezing - Cardiovascular Rhythm: regular Heart Sounds: Present: S1 & S2 - Extremities Extremities: no ischemia, No edema - Abdominal General gastrointestinal: soft, non-tender, non-distended, normal bowel sounds - Integumentary Integumentary: Present: clear, warm - Psychiatric Psychiatric: appropriate mood/affect, agitated - Neurologic Neurologic: CNII-XII intact, moves all extremities HEART Score - HEART Score Troponin: Troponin T < 0.010 ng/mL (0.00-0.029) 12/28/20 09:33 Results - Labs CBC & Chem 7: 01/02/21 05:24 01/02/21 05:24 Labs: Laboratory Last Values WBC 4.4 K/mm3 (4.5-11.0) L 01/02/21 05:24 RBC 3.75 M/mm3 (3.65-5.03) 01/02/21 05:24 Hgb 12.9 gm/dl (11.8-15.2) 01/02/21 05:24 Hct 35.6 % (35.5-45.6) 01/02/21 05:24 MCV 95 fl (84-94) H 01/02/21 05:24 MCH 34 pg (28-32) H 01/02/21 05:24 MCHC 36 % (32-34) H 01/02/21 05:24 RDW 13.7 % (13.2-15.2) 01/02/21 05:24 Plt Count 250 K/mm3 (140-440) 01/02/21 05:24 Lymph % (Auto) 20.7 % (13.4-35.0) 01/02/21 05:24 Page % (Auto) 10.5 % (0.0-7.3) H 01/02/21 05:24 Eos % (Auto) 2.4 % (0.0-4.3) 01/02/21 05:24 Baso % (Auto) 0.4 % (0.0-1.8) 01/02/21 05:24 Lymph # (Auto) 0.9 K/mm3 (1.2-5.4) L 01/02/21 05:24 [place] # (Auto) 0.5 K/mm3 (0.0-0.8) 01/02/21 05:24 Eos # (Auto) 0.1 K/mm3 (0.0-0.4) 01/02/21 05:24 Baso # (Auto) 0.0 K/mm3 (0.0-0.1) 01/02/21 05:24 Seg Neutrophils % 66.0 % (40.0-70.0) 01/02/21 05:24 Seg Neutrophils # 2.9 K/mm3 (1.8-7.7) 01/02/21 05:24 Abs Lymphs (Manual) 675 cells/uL (850-3900) L 12/29/20 16:01 PT 14.9 Sec. (12.2-14.9) 12/28/20 09:33 INR 1.17 (0.87-1.13) H 12/28/20 09:33 APTT 40.0 Sec. (24.2-36.6) H 12/28/20 09:33 Thrombin Time 15.2 Sec. (15.1-19.6) 12/28/20 09:33 Sodium 135 mmol/L (137-145) L 01/02/21 05:24 Potassium 3.4 mmol/L (3.6-5.0) L D 01/02/21 05:24 Chloride 101.5 mmol/L (98-107) 01/02/21 05:24 Carbon Dioxide 23 mmol/L (22-30) 01/02/21 05:24 Anion Gap 14 mmol/L 01/02/21 05:24 BUN 16 mg/dL (9-20) 01/02/21 05:24 Creatinine 1.2 mg/dL (0.8-1.3) 01/02/21 05:24 Estimated GFR > 60 ml/min 01/02/21 05:24 BUN/Creatinine Ratio 13 % 01/02/21 05:24 Glucose 99 mg/dL (75-100) 01/02/21 05:24 POC Glucose 103 mg/dL (70-105) 12/31/20 16:31 Calcium 9.4 mg/dL (8.4-10.2) 01/02/21 05:24 Magnesium 2.00 mg/dL (1.7-2.3) 12/28/20 09:33 Total Bilirubin 0.40 mg/dL (0.1-1.2) 01/06/21 04:13 Direct Bilirubin < 0.2 mg/dL (0-0.2) 01/06/21 04:13 Indirect Bilirubin 0.2 mg/dL 01/06/21 04:13 AST 9 units/L (5-40) 01/06/21 04:13 ALT 11 units/L (7-56) 01/06/21 04:13 Alkaline Phosphatase 74 units/L (35-129) 01/06/21 04:13 Ammonia 15.0 umol/L (25-60) L 12/28/20 09:33 Total Creatine Kinase 126 units/L (55-170) 12/28/20 09:33 CK-MB (CK-2) < 1.0 ng/mL (0.0-4.0) 12/28/20 09:33 CK-MB (CK-2) Rel Index 0.7 (0-4) 12/28/20 09:33 Troponin T < 0.010 ng/mL (0.00-0.029) 12/28/20 09:33 Total Protein 7.5 g/dL (6.3-8.2) 01/06/21 04:13 Albumin 3.9 g/dL (3.9-5) 01/06/21 04:13 Albumin/Globulin Ratio 1.1 % 01/06/21 04:13 CSF Appearance Clear 12/28/20 12:48 CSF Color Colorless 12/28/20 12:48 CSF WBC 33.85 /mm3 (1-10) 12/28/20 12:48 CSF RBC 3.3 /mm3 (0-0) 12/28/20 12:48 CSF Seg Neutrophils 3.0 % (0-6) 12/28/20 12:48 CSF Lymphocytes % 78.0 % (40-80) 12/28/20 12:48 CSF Reactive Lymphs 0 % 12/28/20 12:48 CSF Monocytes % 18.0 % (15-45) 12/28/20 12:48 CSF Eosinophils % 1.0 % 12/28/20 12:48 CSF Basophils 0 % 12/28/20 12:48 CSF Pathologist Review C 12/28/20 12:48 CSF Glucose 41 mg/dL 12/28/20 12:48 CSF Total Protein 121 mg/dL 12/28/20 12:48 CSF VDRL Nonreactive (Nonreactive) 12/28/20 12:48 Lymph Enumerat CD4/CD8 0.68 (0.86-5.00) L 12/29/20 16:01 % CD3 Cells 59 % (57-85) 12/29/20 16:01 Absolute CD3 Count 401 cells/uL (840-3060) L 12/29/20 16:01 % CD4 Cells 23 % (30-61) L 12/29/20 16:01 Absolute CD4 Count 158 cells/uL (490-1740) L 12/29/20 16:01 % CD8 Cells 34 % (12-42) 12/29/20 16:01 Absolute CD8 Count 232 cells/uL (180-1170) 12/29/20 16:01 % CD19 Cells 37 % (6-29) H 12/29/20 16:01 Absolute CD19 Count 250 cells/uL (110-660) 12/29/20 16:01 HIV-1 RNA PCR copies/ml 39 Copies/mL H 12/29/20 16:01 HIV-1 RNA (PCR) log 1.59 Log cps/mL H 12/29/20 16:01 Daniel/IV: Voiding Method Toilet Active Medications - Current Medications Current Medications: Generic Name Dose Route Start Last Admin Trade Name Freq PRN Reason Stop Dose Admin Acetaminophen 650 mg 12/29/20 02:08 01/03/21 22:44 Acetaminophen 325 Mg Tab PO 650 mg Q4H PRN Administration Pain,Mild (1-3),SHEARER,Fever>100.5 Flucytosine 2,000 mg 12/30/20 18:00 01/08/21 17:35 Flucytosine 500 Mg Cap PO 01/13/21 12:01 2,000 mg Q6HR BAM Administration Dextrose 100 mls @ 0 mls/hr 01/02/21 11:00 01/08/21 15:46 D5w IV 20 mls/hr Q24HR BAM Administration Amphotericin B 300 mg/ 250 mls @ 125 mls/hr 01/06/21 18:00 01/08/21 12:41 Dextrose IV 01/13/21 11:59 125 mls/hr Q24HR BAM Administration Levetiracetam 750 mg 12/31/20 22:00 01/08/21 12:43 Levetiracetam 500 Mg Tab PO 750 mg BID BAM Administration Nutrition/Malnutrition Assess - Dietary Evaluation Nutrition/Malnutrition Findings: Nutrition Notes Start: 01/05/21 1 5:02 Freq: Status: Active Protocol: Document 01/05/21 15:02 NIKO (Rec: 01/05/21 15:06 [id number]) Nutrition Notes Need for Assessment generated from: LOS Initial or Follow up Brief Note Other Pertinent Diagnosis HIV, meningitis, right parietal lobe lesion Current Diet Consistent CHO Labs/Tests BG 99 Subjective/Other Information Screen for LOS. Pt reports eating 100% of meals. Pt states he does not have DM and would like sweet tea. Nutrition Intervention Change Diet Order: Regular Revisit per MD consult or patient Sign Off request:
[2021-01-09] MEDS: FLUCYTOSINE 500 MG CAP PO SCH ×2 (05:52→21:53)
[2021-01-09 06:46] LABS: Calcium 9.6 mg/dL (8.4-10.2)
[2021-01-09] MEDS: levETIRAcetam 500 MG TAB PO SCH ×2 (09:52→21:53)
[2021-01-09] MEDS: AMPHOTERICIN B LIPOSOME IV SCH (09:52)
[2021-01-09] MEDS: WATER IV SCH (09:52)
[2021-01-09] MEDS: DEXTROSE 5% IN WATER 100 ML IV SCH (09:52)
[2021-01-09] MEDS: DEXTROSE 5% IV SCH (09:52)
--- NOTE | 2021-01-09 11:34 | Progress Note ---
Assessment and Plan Cultures: CSF Crpyto A:16. Serum cryptococcus antigen: 1:128 HIV viral load: 39 CD4 count: 158 (23%) A/P: 35 y M PMHx HIV, Cryptococcus meningitis presents with persistent headaches #Cryptococcus meningitis: previously treated with induction therapy in [place] approximately one year ago. His maintenance therapy was stopped 3 months ago, or after approximately 9 months total. It is unclear why at this point. Unclear if he had a negative Crpyto serum antigen. His current titre is 1:16, it is unclear as to what he was at the beginning, serum titre elevated at 1:128 as well. Likely secondary to premature stopping of his outpatient fluconazole. #HIV: reports compliance with the Biktarvy. Immune status and HIV control actually pretty good, a bit surprising he developed symptoms again. #Headaches Recs: -Follow-up CSF fungal culture. Confirmed with lab it was sent. -Given presence of vasogenic edema on brain MRI will start Induction therapy for cryptococcal meningitis. -Pharmacy was able to obtain AmBisome 4 mg/kg every 24 hours. Continue flucytosine 25 mg/kg every 6 hours. Needs 2 weeks induction therapy -Following completion of induction therapy recommend 8 weks of consolidation therapy with fluconazole 400mg q24h -Following completion of consolidation therapy recommend maintenance therapy for 1 year with fluconazole 200mg daily. -He can resume follow up with his outpatient HIV provider. -Monitor electrolytes and kidney function while on Ambisome. -Resume Biktarvy on discharge Thank you for the consult, we will continue to follow. Nichelle Mayo MD [facility] O: [phone] F: [phone] Subjective Date of service: 01/09/21 Principal diagnosis: Crytococcal meningitis Interval history: Afebrile, no new issues. Patient eager to go home. Objective - Exam Narrative Exam: Physical Exam: Constitutional: Alert, cooperative. No acute distress Head, Ears, Nose: Normocephalic, atraumatic. Eyes: Conjunctivae/corneas clear. No icterus. No ptosis. Neck: Supple, no meningeal signs Oral: dentition fair, no thrush Cardiovascular: S1, S2 normal. Respiratory: Good air entry, clear to auscultation bilaterally GI: Soft, non-tender; bowel sounds normal. No peritoneal signs. Musculoskeletal: No pedal edema, no cyanosis. Skin: No rash or abscess Hem/Lymphatic: No palpable cervical or supraclavicular nodes. Psych: Mood ok. Affect normal Neurological: Awake, alert, oriented. No gross abnormality - Constitutional Vitals: Vital Signs Temp Pulse Resp BP Pulse Ox 98.1 F 79 15 119/61 98 01/09/21 05:50 01/09/21 05:50 01/09/21 05:50 01/09/21 05:50 01/09/21 05:50 Temperature -Last 24 Hours Temperature 98.1 F Temperature 98.5 F Temperature 97.7 F - Labs CBC & Chem 7: 01/02/21 05:24 01/09/21 05:58 Labs: Abnormal lab results 01/09/21 Range/Units 05:58 Potassium 3.2 L (3.6-5.0) mmol/L BUN 28 H (9-20) mg/dL Creatinine 2.8 H (0.8-1.3) mg/dL Glucose 104 H (75-100) mg/dL
[2021-01-09] MEDS ORDERED: POTASSIUM CHLORIDE ER 20 MEQ TAB PO ONE (19:11)
--- NOTE | 2021-01-09 19:17 | Progress Note ---
Assessment and Plan Assessment and plan: --Hypokalemia; Current Visit: Yes Status: Acute . Replenished with KCl Monitor electrolytes --Acute kidney injury; ATN Current Visit: Yes Status: Acute . 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 Plan to address problem: CSF Crpyto A:16. Serum cryptococcus antigen: 1:128 Continue amphotericin and flucytosine ID following -- Focal seizures Current Visit: Yes Status: Acute Plan to address problem: Started on Keppra IV Seizure precautions, do not drive Rt parietal lesion, treatment per neurology -- HIV ; Current Visit: Yes Status: Acute Plan to address problem: HIV viral load: 39 CD4 count: 158 (23%) Patient claims compliance with his medications Will hold Biktarvy per ID Continue supportive care -- Right parietal lobe lesion Current Visit: Yes Status: Acute Plan to address problem: Acute, management per neurology -- DVT prophylaxis Current Visit: Yes Status: Acute Plan to address problem: On Heparin Closely monitor the patient and adjust management as needed ID evaluation recommendations noted and appreciated PT evaluation and recommendations for unsteady gait and meningitis Brief history: 35-year-old man past medical history HIV presented to the hospital with possible seizure. He was noted to have jerking movements of his head. He has been seen in the hospital in the past for headaches a couple weeks prior. He had been having persistent headache since that time. Lumbar puncture was performed which showed 33 white cells with 78% lymphocytes. 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 This was diagnosed in [place] and was hospitalized for a month in December 2019. He is on Biktarvy. He had previously been on daily fluconazole as maintenance therapy for the cryptococcus, however when he transferred care from [place] he stopped his fluconazole at that time. Also complaints of LLE weakness.Walking with a limp. Afebrile since admission with a normal white count. 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 12/29/20 Sx better LLE weakness persists ID consult appreciated 12/30/2020; follow MRI, tests and reports, adjust management as needed ID, neurology evaluation recommendations noted and appreciated 12/31/2020; patient is on amphotericin and flucytosine per ID Antiretrovirals held at this point 01/01/2021; patient feels better on amphotericin and flucytosine Closely monitor patient clinically and follow ID recommendations 01/02;Cont Amphotericin and Flucytosine 01/03;Cont Amphotericin and Flucytosine 01/04;Cont Amphotericin and Flucytosine 01/05;Cont Amphotericin and Flucytosine 01/06; PT requested for DC needs, continue amphotericin and flucytosine 01/07; total 2 weeks of induction therapy with flucytosine ID following amphotericin B 01/08; patient is receiving induction therapy with flucytosine and amphotericin B, ID recommended total 2 weeks Closely monitor, transition to oral after finishing 2 weeks 01/09; acute kidney injury probably secondary to ATN, drug-induced Aggressive hydration, monitor renal function, avoid nephrotoxin Hypokalemia, replenished with oral KCl, follow electrolytes History Interval history: I seen and examined the patient at the bedside Patient's chart and medications reviewed Patient receiving IV flucytosine and amphotericin B No new complaints vital signs noted Hospitalist Physical - Constitutional Vitals: Temp Pulse Resp BP Pulse Ox 98.1 F 79 15 119/61 98 01/09/21 05:50 01/09/21 05:50 01/09/21 05:50 01/09/21 05:50 01/09/21 05:50 General appearance: Present: no acute distress, well-nourished - EENT Eyes: Present: PERRL, EOM intact - Neck Neck: Present: supple, normal ROM - Respiratory Respiratory effort: normal Respiratory: bilateral: diminished, negative: rales, rhonchi, wheezing - Cardiovascular Rhythm: regular Heart Sounds: Present: S1 & S2 - Extremities Extremities: no ischemia, No edema - Abdominal General gastrointestinal: soft, non-tender, non-distended, normal bowel sounds - Integumentary Integumentary: Present: clear, warm - Psychiatric Psychiatric: appropriate mood/affect, cooperative - Neurologic Neurologic: CNII-XII intact, moves all extremities HEART Score - HEART Score Troponin: Troponin T < 0.010 ng/mL (0.00-0.029) 12/28/20 09:33 Results - Labs CBC & Chem 7: 01/02/21 05:24 01/09/21 05:58 Labs: Laboratory Last Values WBC 4.4 K/mm3 (4.5-11.0) L 01/02/21 05:24 RBC 3.75 M/mm3 (3.65-5.03) 01/02/21 05:24 Hgb 12.9 gm/dl (11.8-15.2) 01/02/21 05:24 Hct 35.6 % (35.5-45.6) 01/02/21 05:24 MCV 95 fl (84-94) H 01/02/21 05:24 MCH 34 pg (28-32) H 01/02/21 05:24 MCHC 36 % (32-34) H 01/02/21 05:24 RDW 13.7 % (13.2-15.2) 01/02/21 05:24 Plt Count 250 K/mm3 (140-440) 01/02/21 05:24 Lymph % (Auto) 20.7 % (13.4-35.0) 01/02/21 05:24 [place] % (Auto) 10.5 % (0.0-7.3) H 01/02/21 05:24 Eos % (Auto) 2.4 % (0.0-4.3) 01/02/21 05:24 Baso % (Auto) 0.4 % (0.0-1.8) 01/02/21 05:24 Lymph # (Auto) 0.9 K/mm3 (1.2-5.4) L 01/02/21 05:24 [place] # (Auto) 0.5 K/mm3 (0.0-0.8) 01/02/21 05:24 Eos # (Auto) 0.1 K/mm3 (0.0-0.4) 01/02/21 05:24 Baso # (Auto) 0.0 K/mm3 (0.0-0.1) 01/02/21 05:24 Seg Neutrophils % 66.0 % (40.0-70.0) 01/02/21 05:24 Seg Neutrophils # 2.9 K/mm3 (1.8-7.7) 01/02/21 05:24 Abs Lymphs (Manual) 675 cells/uL (850-3900) L 12/29/20 16:01 PT 14.9 Sec. (12.2-14.9) 12/28/20 09:33 INR 1.17 (0.87-1.13) H 12/28/20 09:33 APTT 40.0 Sec. (24.2-36.6) H 12/28/20 09:33 Thrombin Time 15.2 Sec. (15.1-19.6) 12/28/20 09:33 Sodium 137 mmol/L (137-145) 01/09/21 05:58 Potassium 3.2 mmol/L (3.6-5.0) L 01/09/21 05:58 Chloride 100.5 mmol/L (98-107) 01/09/21 05:58 Carbon Dioxide 23 mmol/L (22-30) 01/09/21 05:58 Anion Gap 17 mmol/L 01/09/21 05:58 BUN 28 mg/dL (9-20) H 01/09/21 05:58 Creatinine 2.8 mg/dL (0.8-1.3) H 01/09/21 05:58 Estimated GFR 26 ml/min 01/09/21 05:58 BUN/Creatinine Ratio 10 % 01/09/21 05:58 Glucose 104 mg/dL (75-100) H 01/09/21 05:58 POC Glucose 103 mg/dL (70-105) 12/31/20 16:31 Calcium 9.6 mg/dL (8.4-10.2) 01/09/21 05:58 Magnesium 1.80 mg/dL (1.7-2.3) 01/09/21 05:58 Total Bilirubin 0.40 mg/dL (0.1-1.2) 01/06/21 04:13 Direct Bilirubin < 0.2 mg/dL (0-0.2) 01/06/21 04:13 Indirect Bilirubin 0.2 mg/dL 01/06/21 04:13 AST 9 units/L (5-40) 01/06/21 04:13 ALT 11 units/L (7-56) 01/06/21 04:13 Alkaline Phosphatase 74 units/L (35-129) 01/06/21 04:13 Ammonia 15.0 umol/L (25-60) L 12/28/20 09:33 Total Creatine Kinase 126 units/L (55-170) 12/28/20 09:33 CK-MB (CK-2) < 1.0 ng/mL (0.0-4.0) 12/28/20 09:33 CK-MB (CK-2) Rel Index 0.7 (0-4) 12/28/20 09:33 Troponin T < 0.010 ng/mL (0.00-0.029) 12/28/20 09:33 Total Protein 7.5 g/dL (6.3-8.2) 01/06/21 04:13 Albumin 3.9 g/dL (3.9-5) 01/06/21 04:13 Albumin/Globulin Ratio 1.1 % 01/06/21 04:13 CSF Appearance Clear 12/28/20 12:48 CSF Color Colorless 12/28/20 12:48 CSF WBC 33.85 /mm3 (1-10) 12/28/20 12:48 CSF RBC 3.3 /mm3 (0-0) 12/28/20 12:48 CSF Seg Neutrophils 3.0 % (0-6) 12/28/20 12:48 CSF Lymphocytes % 78.0 % (40-80) 12/28/20 12:48 CSF Reactive Lymphs 0 % 12/28/20 12:48 CSF Monocytes % 18.0 % (15-45) 12/28/20 12:48 CSF Eosinophils % 1.0 % 12/28/20 12:48 CSF Basophils 0 % 12/28/20 12:48 CSF Pathologist Review C 12/28/20 12:48 CSF Glucose 41 mg/dL 12/28/20 12:48 CSF Total Protein 121 mg/dL 12/28/20 12:48 CSF VDRL Nonreactive (Nonreactive) 12/28/20 12:48 Lymph Enumerat CD4/CD8 0.68 (0.86-5.00) L 12/29/20 16:01 % CD3 Cells 59 % (57-85) 12/29/20 16:01 Absolute CD3 Count 401 cells/uL (840-3060) L 12/29/20 16:01 % CD4 Cells 23 % (30-61) L 12/29/20 16:01 Absolute CD4 Count 158 cells/uL (490-1740) L 12/29/20 16:01 % CD8 Cells 34 % (12-42) 12/29/20 16:01 Absolute CD8 Count 232 cells/uL (180-1170) 12/29/20 16:01 % CD19 Cells 37 % (6-29) H 12/29/20 16:01 Absolute CD19 Count 250 cells/uL (110-660) 12/29/20 16:01 HIV-1 RNA PCR copies/ml 39 Copies/mL H 12/29/20 16:01 HIV-1 RNA (PCR) log 1.59 Log cps/mL H 12/29/20 16:01 Daniel/IV: Voiding Method Toilet Active Medications - Current Medications Current Medications: Generic Name Dose Route Start Last Admin Trade Name Freq PRN Reason Stop Dose Admin Acetaminophen 650 mg 12/29/20 02:08 01/03/21 22:44 Acetaminophen 325 Mg Tab PO 650 mg Q4H PRN Administration Pain,Mild (1-3),SHEARER,Fever>100.5 Flucytosine 2,000 mg 01/09/21 22:00 Flucytosine 500 Mg Cap PO 01/13/21 23:59 Q12HR BAM Dextrose 100 mls @ 0 mls/hr 01/02/21 11:00 01/09/21 13:27 D5w IV 0 mls/hr Q24HR BAM Infusion Amphotericin B 300 mg/ 250 mls @ 125 mls/hr 01/06/21 18:00 01/09/21 13:13 Dextrose IV 01/13/21 11:59 Infused Q24HR BAM Infusion Sodium Chloride 1,000 mls @ 100 mls/hr 01/09/21 19:30 Nacl 0.9% 1000 Ml IV DIRECT BAM Levetiracetam 750 mg 12/31/20 22:00 01/09/21 09:52 Levetiracetam 500 Mg Tab PO 750 mg BID BAM Administration Nutrition/Malnutrition Assess - Dietary Evaluation Nutrition/Malnutrition Findings: Nutrition Notes Start: 01/05/21 15:02 Freq: Status: Active Protocol: Document 01/05/21 15:02 (Rec: 01/05/21 15:06 [email or web address]) Nutrition Notes Need for Assessment generated from: LOS Initial or Follow up Brief Note Other Pertinent Diagnosis HIV, meningitis, right parietal lobe lesion Current Diet Consistent CHO Labs/Tests BG 99 Subjective/Other Information Screen for LOS. Pt reports eating 100% of meals. Pt states he does not have DM and would like sweet tea. Nutrition Intervention Change Diet Order: Regular Revisit per MD consult or patient Sign Off request:
[2021-01-09] MEDS ORDERED: SODIUM CHLORIDE 0.9% 1000 ML 1,000 ML IV SCH (19:30)
[2021-01-10 06:07] LABS: Calcium 9.4 mg/dL (8.4-10.2)
[2021-01-10] MEDS: FLUCYTOSINE 500 MG CAP PO SCH ×2 (10:00→21:03)
[2021-01-10] MEDS: levETIRAcetam 500 MG TAB PO SCH ×2 (10:02→21:04)
[2021-01-10] MEDS: SODIUM CHLORIDE 0.9% 1000 ML 1,000 ML IV SCH ×2 (10:02→23:00)
[2021-01-10] MEDS: AMPHOTERICIN B LIPOSOME IV SCH (10:06)
[2021-01-10] MEDS: DEXTROSE 5% IV SCH (10:06)
[2021-01-10] MEDS: WATER IV SCH (10:06)
[2021-01-10] MEDS: DEXTROSE 5% IN WATER 100 ML IV SCH (10:07)
--- NOTE | 2021-01-10 15:02 | Progress Note ---
Assessment and Plan Assessment and plan: --Hypokalemia; Current Visit: Yes Status: Acute . Replenished with KCl Monitor electrolytes --Acute kidney injury; ATN Current Visit: Yes Status: Acute . 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 Plan to address problem: CSF Crpyto A:16. Serum cryptococcus antigen: 1:128 Continue amphotericin and flucytosine ID following -- Focal seizures Current Visit: Yes Status: Acute Plan to address problem: Started on Keppra IV Seizure precautions, do not drive Rt parietal lesion, treatment per neurology -- HIV ; Current Visit: Yes Status: Acute Plan to address problem: HIV viral load: 39 CD4 count: 158 (23%) Patient claims compliance with his medications Will hold Biktarvy per ID Continue supportive care -- Right parietal lobe lesion Current Visit: Yes Status: Acute Plan to address problem: Acute, management per neurology -- DVT prophylaxis Current Visit: Yes Status: Acute Plan to address problem: On Heparin Closely monitor the patient and adjust management as needed ID evaluation recommendations noted and appreciated PT evaluation and recommendations for unsteady gait and meningitis Brief history: 35-year-old man past medical history HIV presented to the hospital with possible seizure. He was noted to have jerking movements of his head. He has been seen in the hospital in the past for headaches a couple weeks prior. He had been having persistent headache since that time. Lumbar puncture was performed which showed 33 white cells with 78% lymphocytes. 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 This was diagnosed in [place] and was hospitalized for a month in December 2019. He is on Biktarvy. He had previously been on daily fluconazole as maintenance therapy for the cryptococcus, however when he transferred care from [place] he stopped his fluconazole at that time. Also complaints of LLE weakness.Walking with a limp. Afebrile since admission with a normal white count. 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 12/29/20 Sx better LLE weakness persists ID consult appreciated 12/30/2020; follow MRI, tests and reports, adjust management as needed ID, neurology evaluation recommendations noted and appreciated 12/31/2020; patient is on amphotericin and flucytosine per ID Antiretrovirals held at this point 01/01/2021; patient feels better on amphotericin and flucytosine Closely monitor patient clinically and follow ID recommendations 01/02;Cont Amphotericin and Flucytosine 01/03;Cont Amphotericin and Flucytosine 01/04;Cont Amphotericin and Flucytosine 01/05;Cont Amphotericin and Flucytosine 01/06; PT requested for DC needs, continue amphotericin and flucytosine 01/07; total 2 weeks of induction therapy with flucytosine ID following amphotericin B 01/08; patient is receiving induction therapy with flucytosine and amphotericin B, ID recommended total 2 weeks Closely monitor, transition to oral after finishing 2 weeks 01/09; acute kidney injury probably secondary to ATN, drug-induced Aggressive hydration, monitor renal function, avoid nephrotoxin Hypokalemia, replenished with oral KCl, follow electrolytes 01/10; patient feels slightly better, I spoke with one of his brothers Jose on the speaker phone at the bedside in [place], and answered all their questions History Interval history: I have seen and examined the patient at the bedside Patient's chart and medications reviewed No new events reported by the nursing Patient is anxious to go home 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 for total 2 weeks Vital signs noted Hospitalist Physical - Constitutional Vitals: Temp Pulse Resp BP Pulse Ox 99.0 F 75 18 128/82 100 01/10/21 12:16 01/10/21 12:16 01/10/21 12:16 01/10/21 12:16 01/10/21 12:16 General appearance: Present: no acute distress, well-nourished - EENT Eyes: Present: PERRL, EOM intact - Neck Neck: Present: supple, normal ROM - Respiratory Respiratory effort: normal Respiratory: bilateral: diminished, negative: rales, rhonchi, wheezing - Cardiovascular Rhythm: regular Heart Sounds: Present: S1 & S2 - Extremities Extremities: no ischemia, No edema - Abdominal General gastrointestinal: soft, non-tender, non-distended, normal bowel sounds - Integumentary Integumentary: Present: clear, warm - Psychiatric Psychiatric: appropriate mood/affect, cooperative - Neurologic Neurologic: CNII-XII intact, moves all extremities HEART Score - HEART Score Troponin: Troponin T < 0.010 ng/mL (0.00-0.029) 12/28/20 09:33 Results - Labs CBC & Chem 7: 01/02/21 05:24 01/10/21 04:56 Labs: Laboratory Last Values WBC 4.4 K/mm3 (4.5-11.0) L 01/02/21 05:24 RBC 3.75 M/mm3 (3.65-5.03) 01/02/21 05:24 Hgb 12.9 gm/dl (11.8-15.2) 01/02/21 05:24 Hct 35.6 % (35.5-45.6) 01/02/21 05:24 MCV 95 fl (84-94) H 01/02/21 05:24 MCH 34 pg (28-32) H 01/02/21 05:24 MCHC 36 % (32-34) H 01/02/21 05:24 RDW 13.7 % (13.2-15.2) 01/02/21 05:24 Plt Count 250 K/mm3 (140-440) 01/02/21 05:24 Lymph % (Auto) 20.7 % (13.4-35.0) 01/02/21 05:24 [place] % (Auto) 10.5 % (0.0-7.3) H 01/02/21 05:24 Eos % (Auto) 2.4 % (0.0-4.3) 01/02/21 05:24 Baso % (Auto) 0.4 % (0.0-1.8) 01/02/21 05:24 Lymph # (Auto) 0.9 K/mm3 (1.2-5.4) L 01/02/21 05:24 [place] # (Auto) 0.5 K/mm3 (0.0-0.8) 01/02/21 05:24 Eos # (Auto) 0.1 K/mm3 (0.0-0.4) 01/02/21 05:24 Baso # (Auto) 0.0 K/mm3 (0.0-0.1) 01/02/21 05:24 Seg Neutrophils % 66.0 % (40.0-70.0) 01/02/21 05:24 Seg Neutrophils # 2.9 K/mm3 (1.8-7.7) 01/02/21 05:24 Abs Lymphs (Manual) 675 cells/uL (850-3900) L 12/29/20 16:01 PT 14.9 Sec. (12.2-14.9) 12/28/20 09:33 INR 1.17 (0.87-1.13) H 12/28/20 09:33 APTT 40.0 Sec. (24.2-36.6) H 12/28/20 09:33 Thrombin Time 15.2 Sec. (15.1-19.6) 12/28/20 09:33 Sodium 135 mmol/L (137-145) L 01/10/21 04:56 Potassium 3.3 mmol/L (3.6-5.0) L 01/10/21 04:56 Chloride 101.0 mmol/L (98-107) 01/10/21 04:56 Carbon Dioxide 22 mmol/L (22-30) 01/10/21 04:56 Anion Gap 15 mmol/L 01/10/21 04:56 BUN 31 mg/dL (9-20) H 01/10/21 04:56 Creatinine 2.8 mg/dL (0.8-1.3) H 01/10/21 04:56 Estimated GFR 26 ml/min 01/10/21 04:56 BUN/Creatinine Ratio 11 % 01/10/21 04:56 Glucose 96 mg/dL (75-100) 01/10/21 04:56 POC Glucose 103 mg/dL (70-105) 12/31/20 16:31 Calcium 9.4 mg/dL (8.4-10.2) 01/10/21 04:56 Magnesium 1.70 mg/dL (1.7-2.3) 01/10/21 04:56 Total Bilirubin 0.40 mg/dL (0.1-1.2) 01/06/21 04:13 Direct Bilirubin < 0.2 mg/dL (0-0.2) 01/06/21 04:13 Indirect Bilirubin 0.2 mg/dL 01/06/21 04:13 AST 9 units/L (5-40) 01/06/21 04:13 ALT 11 units/L (7-56) 01/06/21 04:13 Alkaline Phosphatase 74 units/L (35-129) 01/06/21 04:13 Ammonia 15.0 umol/L (25-60) L 12/28/20 09:33 Total Creatine Kinase 126 units/L (55-170) 12/28/20 09:33 CK-MB (CK-2) < 1.0 ng/mL (0.0-4.0) 12/28/20 09:33 CK-MB (CK-2) Rel Index 0.7 (0-4) 12/28/20 09:33 Troponin T < 0.010 ng/mL (0.00-0.029) 12/28/20 09:33 Total Protein 7.5 g/dL (6.3-8.2) 01/06/21 04:13 Albumin 3.9 g/dL (3.9-5) 01/06/21 04:13 Albumin/Globulin Ratio 1.1 % 01/06/21 04:13 CSF Appearance Clear 12/28/20 12:48 CSF Color Colorless 12/28/20 12:48 CSF WBC 33.85 /mm3 (1-10) 12/28/20 12:48 CSF RBC 3.3 /mm3 (0-0) 12/28/20 12:48 CSF Seg Neutrophils 3.0 % (0-6) 12/28/20 12:48 CSF Lymphocytes % 78.0 % (40-80) 12/28/20 12:48 CSF Reactive Lymphs 0 % 12/28/20 12:48 CSF Monocytes % 18.0 % (15-45) 12/28/20 12:48 CSF Eosinophils % 1.0 % 12/28/20 12:48 CSF Basophils 0 % 12/28/20 12:48 CSF Pathologist Review C 12/28/20 12:48 CSF Glucose 41 mg/dL 12/28/20 12:48 CSF Total Protein 121 mg/dL 12/28/20 12:48 CSF VDRL Nonreactive (Nonreactive) 12/28/20 12:48 Lymph Enumerat CD4/CD8 0.68 (0.86-5.00) L 12/29/20 16:01 % CD3 Cells 59 % (57-85) 12/29/20 16:01 Absolute CD3 Count 401 cells/uL (840-3060) L 12/29/20 16:01 % CD4 Cells 23 % (30-61) L 12/29/20 16:01 Absolute CD4 Count 158 cells/uL (490-1740) L 12/29/20 16:01 % CD8 Cells 34 % (12-42) 12/29/20 16:01 Absolute CD8 Count 232 cells/uL (180-1170) 12/29/20 16:01 % CD19 Cells 37 % (6-29) H 12/29/20 16:01 Absolute CD19 Count 250 cells/uL (110-660) 12/29/20 16:01 HIV-1 RNA PCR copies/ml 39 Copies/mL H 12/29/20 16:01 HIV-1 RNA (PCR) log 1.59 Log cps/mL H 12/29/20 16:01 Daniel/IV: Voiding Method Toilet Active Medications - Current Medications Current Medications: Generic Name Dose Route Start Last Admin Trade Name Freq PRN Reason Stop Dose Admin Acetaminophen 650 mg 12/29/20 02:08 01/03/21 22:44 Acetaminophen 325 Mg Tab PO 650 mg Q4H PRN Administration Pain,Mild (1-3),SHEARER,Fever>100.5 Flucytosine 2,000 mg 01/09/21 22:00 01/10/21 10:00 Flucytosine 500 Mg Cap PO 01/13/21 23:59 2,000 mg Q12HR BAM Administration Dextrose 100 mls @ 0 mls/hr 01/02/21 11:00 01/10/21 10:07 D5w IV 20 mls/hr Q24HR BAM Administration Amphotericin B 300 mg/ 250 mls @ 125 mls/hr 01/06/21 18:00 01/10/21 10:06 Dextrose IV 01/13/21 11:59 125 mls/hr Q24HR BAM Administration Sodium Chloride 1,000 mls @ 100 mls/hr 01/10/21 08:00 01/10/21 10:02 Nacl 0.9% 1000 Ml IV 100 mls/hr DIRECT BAM Administration Levetiracetam 750 mg 12/31/20 22:00 01/10/21 10:02 Levetiracetam 500 Mg Tab PO 750 mg BID BAM Administration Nutrition/Malnutrition Assess - Dietary Evaluation Nutrition/Malnutrition Findings: Nutrition Notes Start: 01/05/21 15:02 Freq: Status: Active Protocol: Document 01/05/21 15:02 NIKO (Rec: 01/05/21 15:06 NIKO [id number]) Nutrition Notes Need for Assessment generated from: LOS Initial or Follow up Brief Note Other Pertinent Diagnosis HIV, meningitis, right parietal lobe lesion Current Diet Consistent CHO Labs/Tests BG 99 Subjective/Other Information Screen for LOS. Pt reports eating 100% of meals. Pt states he does not have DM and would like sweet tea. Nutrition Intervention Change Diet Order: Regular Revisit per MD consult or patient Sign Off request:
[2021-01-10] MEDS ORDERED: POTASSIUM CHLORIDE ER 20 MEQ TAB PO ONE (15:03)
--- NOTE | 2021-01-10 15:08 | Event Note ---
Date: 01/10/21 I spoke to patient's brother Jose on the speaker phone phone at the bedside in French, and discussed about patient's condition tests and reports , treatment plan I answered all their questions And encouraged to call back if he has any new questions or concerns. I informed patient's nurse of the above conversation
[2021-01-11 06:01] LABS: Calcium 8.9 mg/dL (8.4-10.2)
[2021-01-11] MEDS: DEXTROSE 5% IV SCH (09:32)
[2021-01-11] MEDS: WATER IV SCH (09:32)
[2021-01-11] MEDS: SODIUM CHLORIDE 0.9% 1000 ML 1,000 ML IV SCH (09:32)
[2021-01-11] MEDS: AMPHOTERICIN B LIPOSOME IV SCH (09:32)
[2021-01-11] MEDS: levETIRAcetam 500 MG TAB PO SCH ×2 (09:33→21:27)
[2021-01-11] MEDS: DEXTROSE 5% IN WATER 100 ML IV SCH (09:37)
[2021-01-11] MEDS: FLUCYTOSINE 500 MG CAP PO SCH ×2 (09:52→21:27)
[2021-01-11] MEDS ORDERED: POTASSIUM CHLORIDE ER 20 MEQ TAB PO NR (12:49)
--- NOTE | 2021-01-11 12:51 | Progress Note ---
Assessment and Plan Assessment and plan: --Hypokalemia; Current Visit: Yes Status: Acute . Replenished with KCl Monitor electrolytes --Acute kidney injury; ATN Current Visit: Yes Status: Acute . 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 Plan to address problem: CSF Crpyto A:16. Serum cryptococcus antigen: 1:128 Continue amphotericin and flucytosine ID following -- Focal seizures Current Visit: Yes Status: Acute Plan to address problem: Started on Keppra IV Seizure precautions, do not drive Rt parietal lesion, treatment per neurology -- HIV ; Current Visit: Yes Status: Acute Plan to address problem: HIV viral load: 39 CD4 count: 158 (23%) Patient claims compliance with his medications Will hold Biktarvy per ID Continue supportive care -- Right parietal lobe lesion Current Visit: Yes Status: Acute Plan to address problem: Acute, management per neurology -- DVT prophylaxis Current Visit: Yes Status: Acute Plan to address problem: On Heparin ID recommendations; -Follow-up CSF fungal culture. Confirmed with lab it was sent. -Given presence of vasogenic edema on brain MRI will start Induction therapy for cryptococcal meningitis. -Pharmacy was able to obtain AmBisome 4 mg/kg every 24 hours. Continue flucytosine 25 mg/kg every 6 hours. Needs 2 weeks induction therapy. -Following completion of induction therapy recommend 8 weeks of consolidation therapy with fluconazole 400mg q24h -Following completion of consolidation therapy recommend maintenance therapy for minimum 1 year with fluconazole 200mg daily. -He should resume follow up with his outpatient HIV provider. -Monitor electrolytes and kidney function while on Ambisome. -Resume Biktarvy on discharge Closely monitor the patient and adjust management as needed Follow ID recommendations PT evaluated, no discharge needs Brief history: 35-year-old man past medical history HIV presented to the hospital with possible seizure. He was noted to have jerking movements of his head. He has been seen in the hospital in the past for headaches a couple weeks prior. He had been having persistent headache since that time. Lumbar puncture was performed which showed 33 white cells with 78% lymphocytes. 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 This was diagnosed in [place] and was hospitalized for a month in December 2019. He is on Biktarvy. He had previously been on daily fluconazole as maintenance therapy for the cryptococcus, however when he transferred care from [place] he stopped his fluconazole at that time. Also complaints of LLE weakness.Walking with a limp. Afebrile since admission with a normal white count. 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 12/29/20 Sx better LLE weakness persists ID consult appreciated 12/30/2020; follow MRI, tests and reports, adjust management as needed ID, neurology evaluation recommendations noted and appreciated 12/31/2020; patient is on amphotericin and flucytosine per ID Antiretrovirals held at this point 01/01/2021; patient feels better on amphotericin and flucytosine Closely monitor patient clinically and follow ID recommendations 01/02;Cont Amphotericin and Flucytosine 01/03;Cont Amphotericin and Flucytosine 01/04;Cont Amphotericin and Flucytosine 01/05;Cont Amphotericin and Flucytosine 01/06; PT requested for DC needs, continue amphotericin and flucytosine 01/07; total 2 weeks of induction therapy with flucytosine ID following amphotericin B 01/08; patient is receiving induction therapy with flucytosine and amphotericin B, ID recommended total 2 weeks Closely monitor, transition to oral after finishing 2 weeks 01/09; acute kidney injury probably secondary to ATN, drug-induced Aggressive hydration, monitor renal function, avoid nephrotoxin Hypokalemia, replenished with oral KCl, follow electrolytes 01/10; patient feels slightly better, I spoke with one of his brothers Jose on the speaker phone at the bedside in [place]ian, and answered all their questions 01/11; continue current management per ID recommendations Possible discharge once induction therapy is completed History Interval history: I have have seen and examined the patient at the bedside Patient's chart and medications reviewed Patient feels slightly better anxious to go home I explained to the patient that he needs to complete his treatment Vital signs noted Hospitalist Physical - Constitutional Vitals: Temp Pulse Resp BP Pulse Ox 98.6 F 85 18 96/53 98 01/11/21 04:58 01/11/21 04:58 01/11/21 04:58 01/11/21 04:58 01/11/21 04:58 General appearance: Present: no acute distress, well-nourished - EENT Eyes: Present: PERRL, EOM intact - Neck Neck: Present: supple, normal ROM - Respiratory Respiratory effort: normal Respiratory: bilateral: diminished, negative: rales, rhonchi, wheezing - Cardiovascular Rhythm: regular Heart Sounds: Present: S1 & S2 - Extremities Extremities: no ischemia, No edema - Abdominal General gastrointestinal: soft, non-tender, non-distended, normal bowel sounds - Integumentary Integumentary: Present: clear, warm - Psychiatric Psychiatric: appropriate mood/affect, cooperative - Neurologic Neurologic: CNII-XII intact, moves all extremities HEART Score - HEART Score Troponin: Troponin T < 0.010 ng/mL (0.00-0.029) 12/28/20 09:33 Results - Labs CBC & Chem 7: 01/02/21 05:24 01/11/21 04:13 Labs: Laboratory Last Values WBC 4.4 K/mm3 (4.5-11.0) L 01/02/21 05:24 RBC 3.75 M/mm3 (3.65-5.03) 01/02/21 05:24 Hgb 12.9 gm/dl (11.8-15.2) 01/02/21 05:24 Hct 35.6 % (35.5-45.6) 01/02/21 05:24 MCV 95 fl (84-94) H 01/02/21 05:24 MCH 34 pg (28-32) H 01/02/21 05:24 MCHC 36 % (32-34) H 01/02/21 05:24 RDW 13.7 % (13.2-15.2) 01/02/21 05:24 Plt Count 250 K/mm3 (140-440) 01/02/21 05:24 Lymph % (Auto) 20.7 % (13.4-35.0) 01/02/21 05:24 [place] % (Auto) 10.5 % (0.0-7.3) H 01/02/21 05:24 Eos % (Auto) 2.4 % (0.0-4.3) 01/02/21 05:24 Baso % (Auto) 0.4 % (0.0-1.8) 01/02/21 05:24 Lymph # (Auto) 0.9 K/mm3 (1.2-5.4) L 01/02/21 05:24 [place] # (Auto) 0.5 K/mm3 (0.0-0.8) 01/02/21 05:24 Eos # (Auto) 0.1 K/mm3 (0.0-0.4) 01/02/21 05:24 Baso # (Auto) 0.0 K/mm3 (0.0-0.1) 01/02/21 05:24 Seg Neutrophils % 66.0 % (40.0-70.0) 01/02/21 05:24 Seg Neutrophils # 2.9 K/mm3 (1.8-7.7) 01/02/21 05:24 Abs Lymphs (Manual) 675 cells/uL (850-3900) L 12/29/20 16:01 PT 14.9 Sec. (12.2-14.9) 12/28/20 09:33 INR 1.17 (0.87-1.13) H 12/28/20 09:33 APTT 40.0 Sec. (24.2-36.6) H 12/28/20 09:33 Thrombin Time 15.2 Sec. (15.1-19.6) 12/28/20 09:33 Sodium 139 mmol/L (137-145) 01/11/21 04:13 Potassium 3.3 mmol/L (3.6-5.0) L 01/11/21 04:13 Chloride 106.3 mmol/L (98-107) 01/11/21 04:13 Carbon Dioxide 21 mmol/L (22-30) L 01/11/21 04:13 Anion Gap 15 mmol/L 01/11/21 04:13 BUN 29 mg/dL (9-20) H 01/11/21 04:13 Creatinine 2.4 mg/dL (0.8-1.3) H 01/11/21 04:13 Estimated GFR 31 ml/min 01/11/21 04:13 BUN/Creatinine Ratio 12 % 01/11/21 04:13 Glucose 103 mg/dL (75-100) H 01/11/21 04:13 POC Glucose 103 mg/dL (70-105) 12/31/20 16:31 Calcium 8.9 mg/dL (8.4-10.2) 01/11/21 04:13 Magnesium 1.70 mg/dL (1.7-2.3) 01/10/21 04:56 Total Bilirubin 0.40 mg/dL (0.1-1.2) 01/06/21 04:13 Direct Bilirubin < 0.2 mg/dL (0-0.2) 01/06/21 04:13 Indirect Bilirubin 0.2 mg/dL 01/06/21 04:13 AST 9 units/L (5-40) 01/06/21 04:13 ALT 11 units/L (7-56) 01/06/21 04:13 Alkaline Phosphatase 74 units/L (35-129) 01/06/21 04:13 Ammonia 15.0 umol/L (25-60) L 12/28/20 09:33 Total Creatine Kinase 126 units/L (55-170) 12/28/20 09:33 CK-MB (CK-2) < 1.0 ng/mL (0.0-4.0) 12/28/20 09:33 CK-MB (CK-2) Rel Index 0.7 (0-4) 12/28/20 09:33 Troponin T < 0.010 ng/mL (0.00-0.029) 12/28/20 09:33 Total Protein 7.5 g/dL (6.3-8.2) 01/06/21 04:13 Albumin 3.9 g/dL (3.9-5) 01/06/21 04:13 Albumin/Globulin Ratio 1.1 % 01/06/21 04:13 CSF Appearance Clear 12/28/20 12:48 CSF Color Colorless 12/28/20 12:48 CSF WBC 33.85 /mm3 (1-10) 12/28/20 12:48 CSF RBC 3.3 /mm3 (0-0) 12/28/20 12:48 CSF Seg Neutrophils 3.0 % (0-6) 12/28/20 12:48 CSF Lymphocytes % 78.0 % (40-80) 12/28/20 12:48 CSF Reactive Lymphs 0 % 12/28/20 12:48 CSF Monocytes % 18.0 % (15-45) 12/28/20 12:48 CSF Eosinophils % 1.0 % 12/28/20 12:48 CSF Basophils 0 % 12/28/20 12:48 CSF Pathologist Review C 12/28/20 12:48 CSF Glucose 41 mg/dL 12/28/20 12:48 CSF Total Protein 121 mg/dL 12/28/20 12:48 CSF VDRL Nonreactive (Nonreactive) 12/28/20 12:48 Lymph Enumerat CD4/CD8 0.68 (0.86-5.00) L 12/29/20 16:01 % CD3 Cells 59 % (57-85) 12/29/20 16:01 Absolute CD3 Count 401 cells/uL (840-3060) L 12/29/20 16:01 % CD4 Cells 23 % (30-61) L 12/29/20 16:01 Absolute CD4 Count 158 cells/uL (490-1740) L 12/29/20 16:01 % CD8 Cells 34 % (12-42) 12/29/20 16:01 Absolute CD8 Count 232 cells/uL (180-1170) 12/29/20 16:01 % CD19 Cells 37 % (6-29) H 12/29/20 16:01 Absolute CD19 Count 250 cells/uL (110-660) 12/29/20 16:01 HIV-1 RNA PCR copies/ml 39 Copies/mL H 12/29/20 16:01 HIV-1 RNA (PCR) log 1.59 Log cps/mL H 12/29/20 16:01 Daniel/IV: Voiding Method Toilet Active Medications - Current Medications Current Medications: Generic Name Dose Route Start Last Admin Trade Name Freq PRN Reason Stop Dose Admin Acetaminophen 650 mg 12/29/20 02:08 01/03/21 22:44 Acetaminophen 325 Mg Tab PO 650 mg Q4H PRN Administration Pain,Mild (1-3),SHEARER,Fever>100.5 Flucytosine 2,000 mg 01/09/21 22:00 01/11/21 09:52 Flucytosine 500 Mg Cap PO 01/13/21 23:59 2,000 mg Q12HR BAM Administration Dextrose 100 mls @ 0 mls/hr 01/02/21 11:00 01/11/21 09:37 D5w IV 20 mls/hr Q24HR BAM Administration Amphotericin B 300 mg/ 250 mls @ 125 mls/hr 01/06/21 18:00 01/11/21 09:32 Dextrose IV 01/13/21 11:59 125 mls/hr Q24HR BAM Administration Sodium Chloride 1,000 mls @ 100 mls/hr 01/10/21 08:00 01/11/21 09:32 Nacl 0.9% 1000 Ml IV 100 mls/hr DIRECT BAM Administration Levetiracetam 750 mg 12/31/20 22:00 01/11/21 09:33 Levetiracetam 500 Mg Tab PO 750 mg BID BAM Administration Potassium Chloride 40 meq 01/11/21 12:49 Potassium Chloride Er 20 Meq Tab PO 01/11/21 12:50 ONCE ONE Nutrition/Malnutrition Assess - Dietary Evaluation Nutrition/Malnutrition Findings: Nutrition Notes Start: 01/05/21 15:02 Freq: Status: Active Protocol: Document 01/05/21 15:02 (Rec: 01/05/21 15:06 [id number]) Nutrition Notes Need for Assessment generated from: LOS Initial or Follow up Brief Note Other Pertinent Diagnosis HIV, meningitis, right parietal lobe lesion Current Diet Consistent CHO Labs/Tests BG 99 Subjective/Other Information Screen for LOS. Pt reports eating 100% of meals. Pt states he does not have DM and would like sweet tea. Nutrition Intervention Change Diet Order: Regular Revisit per MD consult or patient Sign Off request:
--- NOTE | 2021-01-11 13:32 | Progress Note ---
Assessment and Plan Cultures: CSF Crpyto A:16. Serum cryptococcus antigen: 1:128 HIV viral load: 39 CD4 count: 158 (23%) A/P: 35 y M PMHx HIV, Cryptococcus meningitis presents with persistent headaches #Cryptococcus meningitis: previously treated with induction therapy in [place] approximately one year ago. His maintenance therapy was stopped 3 months ago, or after approximately 9 months total. It is unclear why at this point. Unclear if he had a negative Crpyto serum antigen. His current titre is 1:16, it is unclear as to what he was at the beginning, serum titre elevated at 1:128 as well. Likely secondary to premature stopping of his outpatient fluconazole. #HIV: reports compliance with the Biktarvy. Immune status and HIV control actually pretty good, a bit surprising he developed symptoms again. #Headaches Recs: -Follow-up CSF fungal culture. Confirmed with lab it was sent. -Given presence of vasogenic edema on brain MRI will start Induction therapy for cryptococcal meningitis. -Pharmacy was able to obtain AmBisome 4 mg/kg every 24 hours. Continue flucytosine 25 mg/kg every 6 hours. Needs 2 weeks induction therapy. -Following completion of induction therapy recommend 8 weeks of consolidation therapy with fluconazole 400mg q24h -Following completion of consolidation therapy recommend maintenance therapy for minimum 1 year with fluconazole 200mg daily. -He should resume follow up with his outpatient HIV provider. -Monitor electrolytes and kidney function while on Ambisome. -Resume Biktarvy on discharge -OK to discharge after completion of Ambisome, stop date is in the chart. Discharge instructions as above. Thank you for the consult, we will sign off for now. Please call with questions. Nichelle Mayo MD [facility] ([facility] O: [phone] F: [phone] Subjective Date of service: 01/11/21 Principal diagnosis: Crytococcal meningitis Interval history: Afebrile, no acute changes. Objective - Exam Narrative Exam: Physical Exam: Constitutional: Alert, cooperative. No acute distress Head, Ears, Nose: Normocephalic, atraumatic. Eyes: Conjunctivae/corneas clear. No icterus. No ptosis. Neck: Supple, no meningeal signs Oral: dentition fair, no thrush Cardiovascular: S1, S2 normal. Respiratory: Good air entry, clear to auscultation bilaterally GI: Soft, non-tender; bowel sounds normal. No peritoneal signs. Musculoskeletal: No pedal edema, no cyanosis. Skin: No rash or abscess Hem/Lymphatic: No palpable cervical or supraclavicular nodes. Psych: Mood ok. Affect normal Neurological: Awake, alert, oriented. No gross abnormality - Constitutional Vitals: Vital Signs Temp Pulse Resp BP Pulse Ox 98.6 F 85 18 96/53 98 01/11/21 04:58 01/11/21 04:58 01/11/21 04:58 01/11/21 04:58 01/11/21 04:58 Temperature -Last 24 Hours Temperature 98.6 F Temperature 99.1 F Temperature 98.8 F - Labs CBC & Chem 7: 01/02/21 05:24 01/11/21 04:13 Labs: Abnormal lab results 01/11/21 Range/Units 04:13 Potassium 3.3 L (3.6-5.0) mmol/L Carbon Dioxide 21 L (22-30) mmol/L BUN 29 H (9-20) mg/dL Creatinine 2.4 H (0.8-1.3) mg/dL Glucose 103 H (75-100) mg/dL
[2021-01-12] MEDS: SODIUM CHLORIDE 0.9% 1000 ML 1,000 ML IV SCH (06:47)
[2021-01-12] MEDS: WATER IV SCH (11:02)
[2021-01-12] MEDS: DEXTROSE 5% IV SCH (11:02)
[2021-01-12] MEDS: AMPHOTERICIN B LIPOSOME IV SCH (11:02)
[2021-01-12] MEDS: levETIRAcetam 500 MG TAB PO SCH ×2 (11:04→23:11)
--- NOTE | 2021-01-12 11:21 | Progress Note ---
Assessment and Plan Assessment and plan: --Hypokalemia; Current Visit: Yes Status: Acute . Replenished with KCl/resolved Monitor electrolytes --Hypomagnesemia; IV mag sulfate, Mag-Ox maintenance Follow electrolytes --Acute kidney injury; ATN Current Visit: Yes Status: Acute . 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 Plan to address problem: CSF Crpyto A:16. Serum cryptococcus antigen: 1:128 Continue amphotericin and flucytosine ID following -- Focal seizures Current Visit: Yes Status: Acute Plan to address problem: Started on Keppra IV Seizure precautions, do not drive Rt parietal lesion, treatment per neurology -- HIV ; Current Visit: Yes Status: Acute Plan to address problem: HIV viral load: 39 CD4 count: 158 (23%) Patient claims compliance with his medications Will hold Biktarvy per ID Continue supportive care -- Right parietal lobe lesion Current Visit: Yes Status: Acute Plan to address problem: Acute, management per neurology -- DVT prophylaxis Current Visit: Yes Status: Acute Plan to address problem: On Heparin ID recommendations; -Follow-up CSF fungal culture. Confirmed with lab it was sent. -Given presence of vasogenic edema on brain MRI will start Induction therapy for cryptococcal meningitis. -Pharmacy was able to obtain AmBisome 4 mg/kg every 24 hours. Continue flucytosine 25 mg/kg every 6 hours. Needs 2 weeks induction therapy. -Following completion of induction therapy recommend 8 weeks of consolidation therapy with fluconazole 400mg q24h -Following completion of consolidation therapy recommend maintenance therapy for minimum 1 year with fluconazole 200mg daily. -He should resume follow up with his outpatient HIV provider. -Monitor electrolytes and kidney function while on Ambisome. -Resume Biktarvy on discharge Closely monitor the patient and adjust management as needed Follow ID recommendations PT evaluated, no discharge needs Brief history: 35-year-old man past medical history HIV presented to the hospital with possible seizure. He was noted to have jerking movements of his head. He has been seen in the hospital in the past for headaches a couple weeks prior. He had been having persistent headache since that time. Lumbar puncture was performed which showed 33 white cells with 78% lymphocytes. 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 This was diagnosed in [place] and was hospitalized for a month in December 2019. He is on Biktarvy. He had previously been on daily fluconazole as maintenance therapy for the cryptococcus, however when he transferred care from [place] he stopped his fluconazole at that time. Also complaints of LLE weakness.Walking with a limp. Afebrile since admission with a normal white count. 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 12/29/20 Sx better LLE weakness persists ID consult appreciated 12/30/2020; follow MRI, tests and reports, adjust management as needed ID, neurology evaluation recommendations noted and appreciated 12/31/2020; patient is on amphotericin and flucytosine per ID Antiretrovirals held at this point 01/01/2021; patient feels better on amphotericin and flucytosine Closely monitor patient clinically and follow ID recommendations 01/02;Cont Amphotericin and Flucytosine 01/03;Cont Amphotericin and Flucytosine 01/04;Cont Amphotericin and Flucytosine 01/05;Cont Amphotericin and Flucytosine 01/06; PT requested for DC needs, continue amphotericin and flucytosine 01/07; total 2 weeks of induction therapy with flucytosine ID following amphotericin B 01/08; patient is receiving induction therapy with flucytosine and amphotericin B, ID recommended total 2 weeks Closely monitor, transition to oral after finishing 2 weeks 01/09; acute kidney injury probably secondary to ATN, drug-induced Aggressive hydration, monitor renal function, avoid nephrotoxin Hypokalemia, replenished with oral KCl, follow electrolytes 01/10; patient feels slightly better, I spoke with one of his brothers Jose on the speaker phone at the bedside in [place], and answered all their questions 01/11; continue current management per ID recommendations Possible discharge once induction therapy is completed 01/12; continue amphotericin B, flucytosine per ID recommendations Discharge once induction therapy is completed, Hypomagnesemia, replenished with mag self and maintenance Mag-Ox Follow electrolytes Follow ID recommendations as mentioned above Disposition; discharge in 1 to 2 days if stable History Interval history: I have seen and examined the patient at the bedside Patient's chart and medications reviewed Patient is receiving injection therapy for cryptococcal meningitis As recommended by ID Vital signs noted Hospitalist Physical - Constitutional Vitals: Temp Pulse Resp BP Pulse Ox 98.7 F 73 20 114/66 99 01/12/21 11:19 01/12/21 11:19 01/12/21 06:54 01/12/21 11:19 01/12/21 06:54 General appearance: Present: no acute distress, well-nourished - EENT Eyes: Present: PERRL, EOM intact - Neck Neck: Present: supple, normal ROM - Respiratory Respiratory effort: normal Respiratory: bilateral: diminished, negative: rales, rhonchi, wheezing - Cardiovascular Rhythm: regular Heart Sounds: Present: S1 & S2 - Extremities Extremities: no ischemia, No edema - Abdominal General gastrointestinal: soft, non-tender, non-distended, normal bowel sounds - Integumentary Integumentary: Present: clear, warm - Psychiatric Psychiatric: appropriate mood/affect, cooperative - Neurologic Neurologic: CNII-XII intact, moves all extremities HEART Score - HEART Score Troponin: Troponin T < 0.010 ng/mL (0.00-0.029) 12/28/20 09:33 Results - Labs CBC & Chem 7: 01/02/21 05:24 01/12/21 04:07 Labs: Laboratory Last Values WBC 4.4 K/mm3 (4.5-11.0) L 01/02/21 05:24 RBC 3.75 M/mm3 (3.65-5.03) 01/02/21 05:24 Hgb 12.9 gm/dl (11.8-15.2) 01/02/21 05:24 Hct 35.6 % (35.5-45.6) 01/02/21 05:24 MCV 95 fl (84-94) H 01/02/21 05:24 MCH 34 pg (28-32) H 01/02/21 05:24 MCHC 36 % (32-34) H 01/02/21 05:24 RDW 13.7 % (13.2-15.2) 01/02/21 05:24 Plt Count 250 K/mm3 (140-440) 01/02/21 05:24 Lymph % (Auto) 20.7 % (13.4-35.0) 01/02/21 05:24 [place] % (Auto) 10.5 % (0.0-7.3) H 01/02/21 05:24 Eos % (Auto) 2.4 % (0.0-4.3) 01/02/21 05:24 Baso % (Auto) 0.4 % (0.0-1.8) 01/02/21 05:24 Lymph # (Auto) 0.9 K/mm3 (1.2-5.4) L 01/02/21 05:24 [place] # (Auto) 0.5 K/mm3 (0.0-0.8) 01/02/21 05:24 Eos # (Auto) 0.1 K/mm3 (0.0-0.4) 01/02/21 05:24 Baso # (Auto) 0.0 K/mm3 (0.0-0.1) 01/02/21 05:24 Seg Neutrophils % 66.0 % (40.0-70.0) 01/02/21 05:24 Seg Neutrophils # 2.9 K/mm3 (1.8-7.7) 01/02/21 05:24 Abs Lymphs (Manual) 675 cells/uL (850-3900) L 12/29/20 16:01 PT 14.9 Sec. (12.2-14.9) 12/28/20 09:33 INR 1.17 (0.87-1.13) H 12/28/20 09:33 APTT 40.0 Sec. (24.2-36.6) H 12/28/20 09:33 Thrombin Time 15.2 Sec. (15.1-19.6) 12/28/20 09:33 Sodium 140 mmol/L (137-145) 01/12/21 04:07 Potassium 3.6 mmol/L (3.6-5.0) 01/12/21 04:07 Chloride 107.7 mmol/L (98-107) H 01/12/21 04:07 Carbon Dioxide 21 mmol/L (22-30) L 01/12/21 04:07 Anion Gap 15 mmol/L 01/12/21 04:07 BUN 26 mg/dL (9-20) H 01/12/21 04:07 Creatinine 1.9 mg/dL (0.8-1.3) H 01/12/21 04:07 Estimated GFR 41 ml/min 01/12/21 04:07 BUN/Creatinine Ratio 14 % 01/12/21 04:07 Glucose 96 mg/dL (75-100) 01/12/21 04:07 POC Glucose 103 mg/dL (70-105) 12/31/20 16:31 Calcium 9.0 mg/dL (8.4-10.2) 01/12/21 04:07 Magnesium 1.30 mg/dL (1.7-2.3) L 01/12/21 04:07 Total Bilirubin 0.40 mg/dL (0.1-1.2) 01/06/21 04:13 Direct Bilirubin < 0.2 mg/dL (0-0.2) 01/06/21 04:13 Indirect Bilirubin 0.2 mg/dL 01/06/21 04:13 AST 9 units/L (5-40) 01/06/21 04:13 ALT 11 units/L (7-56) 01/06/21 04:13 Alkaline Phosphatase 74 units/L (35-129) 01/06/21 04:13 Ammonia 15.0 umol/L (25-60) L 12/28/20 09:33 Total Creatine Kinase 126 units/L (55-170) 12/28/20 09:33 CK-MB (CK-2) < 1.0 ng/mL (0.0-4.0) 12/28/20 09:33 CK-MB (CK-2) Rel Index 0.7 (0-4) 12/28/20 09:33 Troponin T < 0.010 ng/mL (0.00-0.029) 12/28/20 09:33 Total Protein 7.5 g/dL (6.3-8.2) 01/06/21 04:13 Albumin 3.9 g/dL (3.9-5) 01/06/21 04:13 Albumin/Globulin Ratio 1.1 % 01/06/21 04:13 CSF Appearance Clear 12/28/20 12:48 CSF Color Colorless 12/28/20 12:48 CSF WBC 33.85 /mm3 (1-10) 12/28/20 12:48 CSF RBC 3.3 /mm3 (0-0) 12/28/20 12:48 CSF Seg Neutrophils 3.0 % (0-6) 12/28/20 12:48 CSF Lymphocytes % 78.0 % (40-80) 12/28/20 12:48 CSF Reactive Lymphs 0 % 12/28/20 12:48 CSF Monocytes % 18.0 % (15-45) 12/28/20 12:48 CSF Eosinophils % 1.0 % 12/28/20 12:48 CSF Basophils 0 % 12/28/20 12:48 CSF Pathologist Review C 12/28/20 12:48 CSF Glucose 41 mg/dL 12/28/20 12:48 CSF Total Protein 121 mg/dL 12/28/20 12:48 CSF VDRL Nonreactive (Nonreactive) 12/28/20 12:48 Lymph Enumerat CD4/CD8 0.68 (0.86-5.00) L 12/29/20 16:01 % CD3 Cells 59 % (57-85) 12/29/20 16:01 Absolute CD3 Count 401 cells/uL (840-3060) L 12/29/20 16:01 % CD4 Cells 23 % (30-61) L 12/29/20 16:01 Absolute CD4 Count 158 cells/uL (490-1740) L 12/29/20 16:01 % CD8 Cells 34 % (12-42) 12/29/20 16:01 Absolute CD8 Count 232 cells/uL (180-1170) 12/29/20 16:01 % CD19 Cells 37 % (6-29) H 12/29/20 16:01 Absolute CD19 Count 250 cells/uL (110-660) 12/29/20 16:01 HIV-1 RNA PCR copies/ml 39 Copies/mL H 12/29/20 16:01 HIV-1 RNA (PCR) log 1.59 Log cps/mL H 12/29/20 16:01 Daniel/IV: Voiding Method Toilet Active Medications - Current Medications Current Medications: Generic Name Dose Route Start Last Admin Trade Name Freq PRN Reason Stop Dose Admin Acetaminophen 650 mg 12/29/20 02:08 01/03/21 22:44 Acetaminophen 325 Mg Tab PO 650 mg Q4H PRN Administration Pain,Mild (1-3),SHEARER,Fever>100.5 Fluconazole 400 mg 01/14/21 10:00 Fluconazole 200 Mg Tab PO QDAY BAM Flucytosine 2,000 mg 01/12/21 12:00 Flucytosine 500 Mg Cap PO 01/13/21 23:59 Q6HR BAM Dextrose 100 mls @ 0 mls/hr 01/02/21 11:00 01/11/21 14:37 D5w IV 01/13/21 14:00 Infused Q24HR BAM Infusion Amphotericin B 300 mg/ 250 mls @ 125 mls/hr 01/06/21 18:00 01/12/21 11:02 Dextrose IV 01/13/21 11:59 125 mls/hr Q24HR BAM Administration Sodium Chloride 1,000 mls @ 100 mls/hr 01/10/21 08:00 01/12/21 06:47 Nacl 0.9% 1000 Ml IV 100 mls/hr DIRECT BAM Administration Levetiracetam 750 mg 12/31/20 22:00 01/12/21 11:04 Levetiracetam 500 Mg Tab PO 750 mg BID BAM Administration Nutrition/Malnutrition Assess - Dietary Evaluation Nutrition/Malnutrition Findings: Nutrition Notes Start: 01/05/21 15:02 Freq: Status: Active Protocol: Document 01/05/21 15:02 NIKO (Rec: 01/05/21 15:06 NIKO [id number]) Nutrition Notes Need for Assessment generated from: LOS Initial or Follow up Brief Note Other Pertinent Diagnosis HIV, meningitis, right parietal lobe lesion Current Diet Consistent CHO Labs/Tests BG 99 Subjective/Other Information Screen for LOS. Pt reports eating 100% of meals. Pt states he does not have DM and would like sweet tea. Nutrition Intervention Change Diet Order: Regular Revisit per MD consult or patient Sign Off request:
[2021-01-12] MEDS: DEXTROSE 5% IN WATER 100 ML IV SCH (13:41)
[2021-01-12] MEDS: FLUCYTOSINE 500 MG CAP PO SCH ×2 (13:41→23:12)
[2021-01-12] MEDS ORDERED: MAGNESIUM SULFATE 4 GM/100 ML BAG IV ONE (21:23)
[2021-01-13 05:23] VITALS: BP 100/59
[2021-01-13] MEDS: SODIUM CHLORIDE 0.9% 1000 ML 1,000 ML IV SCH (06:04)
[2021-01-13] MEDS: FLUCYTOSINE 500 MG CAP PO SCH ×3 (06:04→12:59)
--- NOTE | 2021-01-13 09:23 | Discharge Summary ---
Providers - Providers Date of Admission: 12/29/20 13:07 Date of discharge: 01/13/21 Attending physician: YONIS MENDES 12/28/20 22:42 Consult to Physician [CONS] Routine Comment: Consulting Provider: SAM POWERS Physician Instructions: Reason For Exam: Cryptococcal meningitis 12/28/20 22:44 Consult to Physician [CONS] Routine Comment: Consulting Provider: SYLVIE HAMEED Physician Instructions: Reason For Exam: Acute CVA/cryptococcal meningitis 01/06/21 19:05 Physical Therapy Evaluation and Treat [CONS] Routine Comment: Reason For Exam: Meningitis/unsteady gait/eval and treat/DC needs Primary care physician: PURCHASE ANALYST Hospitalization Condition: Stable Pertinent studies: head CTs CXR Brain MRIs Hospital course: This is a 35-year-old man past medical history HIV presented to the hospital with possible seizure. He was noted to have jerking movements of his head. He has been seen in the hospital in the past for headaches a couple weeks prior. He had been having persistent headache since that time. Lumbar puncture was performed which showed 33 white cells with 78% lymphocytes. 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 This was diagnosed in [place] and was hospitalized for a month in December 2019. He is on Biktarvy. He had previously been on daily fluconazole as maintenance therapy for the cryptococcus, however when he transferred care from [place] he stopped his fluconazole at that time. Also complaints of LLE weakness.Walking with a limp. Afebrile since admission with a normal white count. 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 patient was initiated on AED, ID was consulted and recommended following: -Follow-up CSF fungal culture -Given presence of vasogenic edema on brain MRI will start Induction therapy for cryptococcal meningitis. -Pharmacy was able to obtain AmBisome 4 mg/kg every 24 hours. Continue flucytosine 25 mg/kg every 6 hours. Needs 2 weeks induction therapy. -Following completion of induction therapy recommend 8 weeks of consolidation therapy with fluconazole 400mg q24h -Following completion of consolidation therapy recommend maintenance therapy for minimum 1 year with fluconazole 200mg daily. -He should resume follow up with his outpatient HIV provider. -Monitor electrolytes and kidney function while on Ambisome. -Resume Biktarvy on discharge Patient completed induction therapy with IV amphotericin B and flucytosine today . He will be discharged home with fluconazole 400 mg daily for 8 weeks then followed by 200 mg daily for at least 1 year. Patient will also resume his home HIV medication. Patient was recommended to adhere with his medication regimen and outpatient follow-up strictly. He verbalized understanding and was discharged home in stable condition. Daily clinical course: 12/29/20 Sx better, LLE weakness persists, ID consult appreciated. continue keppra for seizure 12/30/2020; follow MRI, tests and reports, adjust management as needed ID, neurology evaluation recommendations noted and appreciated 12/31/2020; patient is on amphotericin and flucytosine per ID Antiretrovirals held at this point 01/01/2021; patient feels better on amphotericin and flucytosine Closely monitor patient clinically and follow ID recommendations 01/02;Cont Amphotericin and Flucytosine 01/03;Cont Amphotericin and Flucytosine 01/04;Cont Amphotericin and Flucytosine 01/05;Cont Amphotericin and Flucytosine 01/06; PT requested for DC needs, continue amphotericin and flucytosine 01/07; total 2 weeks of induction therapy with flucytosine ID following amphotericin B 01/08; patient is receiving induction therapy with flucytosine and amphotericin B, ID recommended total 2 weeks Closely monitor, transition to oral after finishing 2 weeks 01/09; acute kidney injury probably secondary to ATN, drug-induced Aggressive hydration, monitor renal function, avoid nephrotoxin Hypokalemia, replenished with oral KCl, follow electrolytes 01/10; patient feels slightly better, updated one of his brothers Jose on the speaker phone at the bedside in [place], and answered all their questions 01/11; continue current management per ID recommendations Possible discharge once induction therapy is completed 01/12; continue amphotericin B, flucytosine per ID recommendations Discharge once induction therapy is completed, Hypomagnesemia, replenished with mag self and maintenance Mag-Ox Follow electrolytes 01/13: Completed induction therapy with Amphotericin and Flucytosine today. Patient will be discharged home with the Biktarvy daily, fluconazole 400 mg daily for 8 weeks and then 200 mg daily for 1 year. Discharge plan and management was thoroughly discussed with the patient. He was counseled to be compliant with his HIV medications and follow-up regular basis at HIV clinic as outpatient. Patient verbalized understanding and will be discharged home in stable condition with outpatient follow-up. Disposition: DC-01 TO HOME OR SELFCARE Final Discharge Diagnosis (Prints w/discharge instructions): HIV with AIDS defining disease, KARISHMA with ATN, cryptococcal meningitis, focal seizure, hypokalemia, hypomagnesemia, hypertension, acute parietal lobe Cryptococcal Lesion / Meningo/Encephalitis. Time spent for discharge: 34 minutes Core Measure Documentation - Palliative Care Palliative Care/ Comfort Measures: Not Applicable - Core Measures Any of the following diagnoses?: none Exam - Physical Exam Narrative exam: General appearance: Present: no acute distress, well-nourished - EENT Eyes: Present: PERRL, EOM intact - Neck Neck: Present: supple, normal ROM - Respiratory Respiratory effort: normal Respiratory: bilateral: diminished, negative: rales, rhonchi, wheezing - Cardiovascular Rhythm: regular Heart Sounds: Present: S1 & S2 - Extremities Extremities: no ischemia, No edema - Abdominal General gastrointestinal: soft, non-tender, non-distended, normal bowel sounds - Integumentary Integumentary: Present: clear, warm - Psychiatric Psychiatric: appropriate mood/affect, cooperative - Neurologic Neurologic: CNII-XII intact, moves all extremities - Constitutional Vitals: Temp Pulse Resp BP Pulse Ox 98.5 F 80 18 100/59 98 01/13/21 05:09 01/13/21 05:09 01/13/21 05:09 01/13/21 05:09 01/13/21 05:09 Plan Activity: advance as tolerated, no driving until cleared by PCP Weight Bearing Status: Weight Bear as Tolerated Diet: low fat, low salt Additional Instructions: Please resume your HIV medication Biktarvy daily. Continue Keppra 750 mg twice daily for seizure. Continue fluconazole 400 mg daily for 8 weeks then 200 mg daily for at least 1 year for cryptococcal meningitis. Please be compliant with your medications and outpatient HIV clinic follow-up. Follow up with: PRIMARY CAREMD [Primary Care Provider] - 3-5 Days ASHLEE MORRELL MD [Staff Physician] - 7 Days Prescriptions: Fluconazole [Diflucan TAB] 400 mg PO QDAY #120 tablet levETIRAcetam [Keppra TAB] 750 mg PO BID #60 tablet
[2021-01-13] MEDS: levETIRAcetam 500 MG TAB PO SCH (09:54)
[2021-01-13] MEDS: DEXTROSE 5% IN WATER 100 ML IV SCH (09:55)
[2021-01-13] MEDS: WATER IV SCH (09:59)
[2021-01-13] MEDS: DEXTROSE 5% IV SCH (09:59)
[2021-01-13] MEDS: AMPHOTERICIN B LIPOSOME IV SCH (09:59)
[2021-01-13] MEDS ORDERED: MAGNESIUM OXIDE 400 MG TAB PO SCH (10:00)
[2021-01-13 11:46] LABS: Calcium 8.3 mg/dL (8.4-10.2)
[2021-01-14] MEDS ORDERED: FLUCONAZOLE 200 MG TAB PO SCH (10:00)
== END 2021-01-13 16:00 | disposition home or self-care (01) | DRG 97 ==
LOC: ED 08:29 → 3A 12:41 → OBSVTOIN 12-29 13:07
PROVIDERS: ADMIT Internal Medicine; ATTEND Internal Medicine
PROC: 009U3ZX Drainage of Spinal Canal, Percutaneous Approach, Diagnostic (ICD-10-PCS; principal; 2020-12-28)
DX: B45.1 Cerebral cryptococcosis (principal); N17.0 Acute kidney failure with tubular necrosis; G04.90 Encephalitis and encephalomyelitis, unspecified; B20 Human immunodeficiency virus [HIV] disease; G40.209 Localization-related (focal) (partial) symptomatic epilepsy and epileptic syndromes with complex partial seizures, not intractable, without status epilepticus; G00-G99 Diseases of the nervous system; E87.6 Hypokalemia; I10 Essential (primary) hypertension; E83.42 Hypomagnesemia
CPT/HCPCS: 36415; 70450; 70460; 70551; 70552; 71045; 80048; 80076; 82024; 82140; 82550; 82553; 82947; 82962; 83735; 84160; 84484; 85025; 85610; 85670; 85730; 86403; 86592; 87102; 87116; 87536; 89051; 93005; 96365; G0378; A9575; J0287; J0289; J1450; J1953; J2060; J2270; J3475; J7030; J7060; Q9967